=== PATIENT | female | born 1950 | race Caucasian/White ===

== ENCOUNTER → 2017-08-12 16:31 | Outpatient (CLI) | payer OTHER, MEDICARE, SELFPAY ==
[2017-08-12 17:25] LABS: Hemoglobin 10.8 g/dL (12.0-16.0)
[2017-08-12 17:30] LABS: HEMOLYSIS 27 (0-50); Iron 34 ug/dL (37-170)
[2017-08-12 17:33] LABS: Alanine Aminotransferase 31 IU/L (9-52); Albumin Globulin Ratio 1.5 (1.0-2.8); Alkaline Phosphatase 74 U/L (38-126); Aspartate Aminotransferase 18 IU/L (14-36); Bilirubin Total 0.5 mg/dL (0.2-1.3); Blood Urea Nitrogen 16 mg/dL (7-17); Calcium 9.7 mg/dL (8.4-10.2); Carbon Dioxide 23 mmol/L (22-32); Chloride 106 mmol/L (98-107); Estimated Glomerular Filt Rate > 60.0 mL/min (>60); Globulin 2.7 g/dL (1.7-4.1); Glucose 85 mg/dL (80-110); HEMOLYSIS < 15 (0-50); Potassium 4.7 mmol/L (3.4-5.1); Sodium 142 mmol/L (137-145); Total Protein 6.7 g/dL (6.3-8.2)
[2017-08-12 17:41] LABS: Percent Iron Saturation 8 % (15-50); Total Iron Binding Capacity 445 ug/dL (265-497); Transferrin 360 mg/dL (206-381)
[2017-08-12 18:01] LABS: Thyroid Stimulating Hormone 2.79 uIU/mL (0.47-4.68)
[2017-08-12 18:05] LABS: Ferritin 7.1 ng/mL (11.1-264)
== END ==
PROVIDERS: PCP Physician Assistant; Visit Provider Physician Assistant
DX: Z98.84 Bariatric surgery status (principal); Z86.2 Personal history of diseases of the blood and blood-forming organs and certain disorders involving the immune mechanism; Z86.39 Personal history of other endocrine, nutritional and metabolic disease
CPT/HCPCS: 36415; 80053; 82728; 83540; 83550; 84443; 85014; 85018

== ENCOUNTER → 2017-12-08 17:27 | Outpatient (CLI) | payer OTHER, SELFPAY ==
[2017-12-08 18:30] LABS: Hematocrit 42.3 % (36-46); Hemoglobin 13.8 g/dL (12.0-16.0)
[2017-12-08 19:08] LABS: HEMOLYSIS < 15 (0-50); Iron 31 ug/dL (37-170)
[2017-12-08 19:20] LABS: Percent Iron Saturation 9 % (15-50); Total Iron Binding Capacity 359 ug/dL (265-497); Transferrin 312 mg/dL (206-381)
[2017-12-08 19:45] LABS: Ferritin 9.8 ng/mL (11.1-264)
== END ==
PROVIDERS: PCP Physician Assistant; Visit Provider Physician Assistant
DX: D50.9 Iron deficiency anemia, unspecified (principal); Z98.84 Bariatric surgery status
CPT/HCPCS: 36415; 82728; 83540; 83550; 85014; 85018

== ENCOUNTER → 2018-01-19 09:53 | Outpatient (CLI) | payer OTHER, SELFPAY ==
--- NOTE | 2018-01-19 09:56 | DI.MG.S_ITS ---
BILATERAL DIGITAL SCREENING MAMMOGRAM 3D/2D WITH CAD: 01/19/2018 CLINICAL: Routine screening. Comparison is made to exams dated: 09/25/2015 mammogram, 04/29/2013 mammogram, and 03/28/2010 mammogram - [facility]. The tissue of both breasts is heterogeneously dense. This may lower the sensitivity of mammography. Current study was also evaluated with a Computer Aided Detection (CAD) system. No significant masses, calcifications, or other findings are seen in either breast. There has been no significant interval change. IMPRESSION: NEGATIVE There is no mammographic evidence of malignancy. A 1 year screening mammogram is recommended. This exam was interpreted at Station ID: [id number]. NOTE: For mammograms, a report in lay terms will be sent to the patient. Approximately 15% of breast malignancies will not be visualized mammographically. In the management of a palpable breast mass, a negative mammogram must not discourage biopsy of a clinically suspicious lesion. Electronically Signed By: Eloy caba/osei:01/19/2018 11:39:42 letter sent: Normal Exam ACR BI-RADS Category 1: Negative [id number]
== END ==
PROVIDERS: PCP Physician Assistant; Visit Provider Physician Assistant
DX: Z12.31 Encounter for screening mammogram for malignant neoplasm of breast (principal)
CPT/HCPCS: 77063; 77067

== ENCOUNTER → 2018-02-05 16:04 | Outpatient (CLI) | payer OTHER, SELFPAY ==
[2018-02-05 18:26] LABS: Urine N gonorrhoeae NOT DETECTED
[2018-02-05 18:30] LABS: Urine Chlamydia NOT DETECTED
== END ==
PROVIDERS: PCP Physician Assistant; Visit Provider Physician Assistant
DX: R30.0 Dysuria (principal); Z20.2 Contact with and (suspected) exposure to infections with a predominantly sexual mode of transmission
CPT/HCPCS: 87210; 87491; 87591

== ENCOUNTER → 2018-02-25 10:32 | Outpatient (CLI) | payer OTHER, SELFPAY | PROVIDERS: PCP Physician Assistant; Visit Provider Physician Assistant | DX: N39.0 Urinary tract infection, site not specified (principal) | CPT/HCPCS: 87086 ==

== ENCOUNTER → 2018-03-09 10:13 | Outpatient (CLI) | payer OTHER, SELFPAY | PROVIDERS: PCP Physician Assistant; Visit Provider Physician Assistant | DX: N39.0 Urinary tract infection, site not specified (principal) | CPT/HCPCS: 87086 ==

== ENCOUNTER → 2018-03-13 11:24 | Outpatient (CLI) | payer OTHER, SELFPAY ==
[2018-03-13 11:43] LABS: Hematocrit 41.4 % (36-46); Hemoglobin 13.6 g/dL (12.0-16.0)
[2018-03-13 11:57] LABS: HEMOLYSIS 21 (0-50); Iron 60 ug/dL (37-170)
[2018-03-13 12:08] LABS: Percent Iron Saturation 16 % (15-50); Total Iron Binding Capacity 379 ug/dL (265-497); Transferrin 332 mg/dL (206-381)
[2018-03-13 12:34] LABS: Ferritin 9.9 ng/mL (11.1-264)
[2018-03-13 12:49] LABS: Vitamin D 25 Hydroxy (D3) 20.6 ng/mL (30.0-100.0)
== END ==
PROVIDERS: PCP Physician Assistant; Visit Provider Physician Assistant
DX: D50.9 Iron deficiency anemia, unspecified (principal); M81.0 Age-related osteoporosis without current pathological fracture; Z98.84 Bariatric surgery status
CPT/HCPCS: 36415; 82306; 82728; 83540; 83550; 85014; 85018

== ENCOUNTER → 2018-04-29 15:33 | Outpatient (CLI) | payer OTHER, SELFPAY | PROVIDERS: PCP Physician Assistant; Visit Provider Physician Assistant | DX: M85.852 Other specified disorders of bone density and structure, left thigh (principal); Z78.0 Asymptomatic menopausal state; Z82.62 Family history of osteoporosis | CPT/HCPCS: 77080; 77081 ==

== ENCOUNTER 2018-05-21 08:59 | Day surgery (SDC) | payer OTHER, SELFPAY ==
[2018-05-21 09:33] VITALS: BMI 29.1
[2018-05-21 09:40] VITALS: BP 140/84; PULSE 74; RESP 15; TEMP 36.4; O2SAT 99
[2018-05-21] MEDS: SODIUM CHLORIDE 0.9% 1,000 ML 200 ML IV (09:50)
[2018-05-21] MEDS: MIDAZOLAM 5 MG/5 ML VIAL IV (11:17)
[2018-05-21] MEDS: fentaNYL 250 MCG/5 ML INJ IV (11:18)
--- NOTE | 2018-05-21 11:18 | PM.HP.1 ---
History of Present Illness Date Patient Seen: 05/21/18 Time Patient Seen: 11:14 Chief complaint: [id number] EGD Narrative: The patient is a woman here for a EGD. She had severe epigastric pain was being seen in February to have a scope done in March. For whatever reason she is here today. Her pain is intermittent now and not nearly as bad as it was. She has been on proton pump inhibitors. She was anemic P which was what prompted her initial visit. Patient History Medical History Generalized osteoarthritis of multiple sites (Chronic 07/04/10) Depression (Chronic) Sleep apnea (Chronic) Hypothyroidism (Chronic 07/04/10) Degeneration of intervertebral disc of cervical region (Chronic 07/04/10) History of bariatric surgery (Resolved 05/23/11) DDD (degenerative disc disease), cervical (Chronic Unknown) Hyperlipemia (Chronic Unknown) Hypertension (Chronic Unknown) Hypothyroidism (Chronic Unknown) Osteopenia (Chronic ~01/2016) Restless leg syndrome (Chronic Unknown) Surgical History Status post total hip replacement, right (Chronic) Hx of bariatric surgery (Resolved 2010) Hx of cholecystectomy (Resolved Unknown) Hx of lumbar discectomy (Resolved 11/2015) Hx of shoulder surgery (Resolved Unknown) Hx of total knee arthroplasty (Resolved 03/2015) S/P total hip arthroplasty (Resolved 01/2017) Family History Father Congestive heart failure Heart disease Mother Hypertension Heart disease Grandfather Stroke Social History household members: none occupational status: employed Smoking Status: Current some day smoker second hand exposure: No alcohol intake: current substance use type: does not use Family & Social History Family History Father Congestive heart failure Heart disease Mother Hypertension Heart disease Grandfather Stroke Social History: household members none Tobacco & Substance use: Smoking Status Current some day smoker alcohol intake current Meds Home Medications Medication Instructions Recorded Confirmed Type Disabled Parking Permit dev #1 09/17/15 05/03/18 Rx Glucose: Home Monitor ea #1 07/28/16 05/03/18 Rx Glucose: Test Strips str BID #100 07/28/16 05/03/18 Rx Lancet: Device ea BID #100 07/28/16 05/03/18 Rx Gabapentin 100 mg See Rx Instructions .ROUTE .COMPLEX 12/10/17 05/03/18 History Melatonin 5 mg See Rx Instructions .ROUTE .COMPLEX 12/10/17 05/03/18 History Voltaren Gel 1% See Rx Instructions .ROUTE .COMPLEX 12/10/17 05/21/18 History [Massage Therapy] #24 each 12/10/17 05/21/18 Rx celecoxib 200 mg capsule 200 mg PO BID #60 cap 12/10/17 05/21/18 Rx varicella-zoster glycoE [id number]-[id number] 50 mcg IM ONCE #1 each 12/10/17 05/21/18 Rx adj(PF) 50 mcg/0.5 mL IM susp, kit pramipexole [Mirapex] 1 - 2 tab PO PM #135 tab 12/14/17 05/21/18 Rx amitriptyline 25 mg tablet 25 - 50 mg PO HS #45 tab 01/11/18 05/21/18 Rx estradiol 0.01% (0.1 mg/gram) See Rx Instructions VAG BEDTIME 02/03/18 05/21/18 Rx vaginal cream #42.5 gram omeprazole 20 mg capsule,delayed 20 mg PO BID #60 cap 02/03/18 05/21/18 Rx release cholecalciferol (vitamin D3) 1,000 See Rx Instructions PO DAILY 03/09/18 05/21/18 History unit capsule urea 40 % topical cream 1 applictn TOP BID PRN #85 gram 03/10/18 05/21/18 Rx oxycodone-acetaminophen 5 mg-325 1 tab PO TID PRN #90 tab 04/22/18 05/21/18 Rx mg tablet tizanidine 4 mg tablet 4 mg PO BEDTIME PRN #30 tab 04/22/18 05/21/18 Rx naproxen 500 mg tablet 500 mg PO BID PRN #60 tab 05/19/18 05/21/18 Rx hydroxyzine pamoate [Vistaril] 25 mg PO Q4HP PRN 05/21/18 05/21/18 History polysaccharide iron complex 150 mg PO BID 05/21/18 05/21/18 History [Ferrex 150] Allergies Allergy/AdvReac Type Severity Reaction Status Date / Time adhesive [ADHESIVE] AdvReac Mild (PAPER/SILK Verified 05/21/18 09:28 TAPE OK) RASH hydrocodone [HYDROCODONE] AdvReac Mild NAUSEA Verified 05/21/18 09:28 oxycodone [OXYCODONE] AdvReac Mild ITCHING, Verified 05/21/18 09:28 TAKES BENADRYL WITH IT Review of Systems Review of Systems No cough or cold. Has a sore throat. No chest pain or heart problems. No black or bloody bowel movements. Exam Vital Signs (past 8 hours): - 05/21/18 09:40 Temperature 97.6 F Pulse Rate 74 Respiratory Rate 15 Blood Pressure 140/84 Pulse Oximetry 99 Oxygen Delivery Method Room Air Narrative Exam Narrative: Operative no apparent distress. Thin. Lungs are clear to auscultation no rales or rhonchi heart regular rate and rhythm no murmur gallop abdomen is soft nontender without masses. Alert and oriented x3. Assessment & Plan Assessment & Plan narrative: Patient with a history of anemia and epigastric pain that is improved. Will proceed EGD. I have discussed the procedure with her including risks of bleeding perforation. She appears to understand wishes to proceed
[2018-05-21] MEDS: TETRACAINE/BENZOCAINE/BUTAMBEN (CETACAINE) BOTTLE 1 SPRAY TOP (11:19)
[2018-05-21] MEDS: LIDOCAINE 4% SOLN 50 ML 20 ML TOP (11:20)
[2018-05-21] MEDS: ONDANSETRON 4 MG/2 ML INJ IV (11:26)
--- NOTE | 2018-05-21 11:38 | PM.PREOP ---
Pre-operative Note Interval Note History & Physical reviewed/Exam performed by Physician: Yes Changes to H&P: No ASA Class (for procedural sedation): II
--- NOTE | 2018-05-21 11:38 | PM.OP.ENDO ---
Operative Date/Time/Diagnoses Date of procedure: 05/21/18 Time of procedure: 11:38 Pre-op diagnosis: Epigastric pain. Post gastric bypass for obesity Post-op diagnosis: same (Large esophageal diverticulum at 25 cm from the incisors) Procedure & Clinicians Study performed: EGD Same procedure as scheduled: Yes Indications: Determine cause of epigastric pain Surgeon: Hans Bullard Procedure Notes SCOAP/Timeout: Performed Procedure in detail: The patient had topical anesthetic applied to oropharynx. She was placed in left lateral decubitus position and underwent IV sedation directed by the surgeon consisting of fentanyl and Versed. A bite block was inserted and the scope was advanced through it into the esophagus. The esophagus was unremarkable. GE junction was noted at 36 cm from the incisors. The gastric remnant distended well. I easily could see the blind end of the jejunum as well as the loop leading away from the gastric remnant. There was no evidence of any inflammation or ulceration at this time. I cannulated the loop and examined as far as I could. No lesions were seen in the small bowel. This was for a length of about 15 cm. The scope was brought back into the gastric remnant retroflexed. The residual proximal stomach was normal in appearance. There was no obvious hiatal hernia. the area was re-examined and then the scope was slowly removed. A large diverticulum was noted in the esophagus at about 25 cm from the incisors. There was no inflammation within it. the scope was then removed and the patient tolerated the procedure well. No lesions suggesting ulceration or neoplasm were seen. The scope was removed and the patient tolerated the procedure well. Scope withdrawal time: Not applicable Sedation minutes: 11 Findings: other findings (Esophageal diverticulum. Status post gastric bypass with Sea-en-Y reconstruction) Specimen(s): none sent Complications: none Recommendations: Other recommendation (Cause of pain unclear. Use of proton pump inhibitor may well have healed any ulcer that was present.) Follow up: as needed Disposition: PACU
[2018-05-21 11:41] VITALS: BP 132/81; PULSE 75; RESP 14; TEMP 36.6; O2SAT 95
[2018-05-21 11:46] VITALS: BP 136/74; PULSE 75; RESP 14; O2SAT 97
[2018-05-21 11:52] VITALS: BP 138/85; PULSE 74; RESP 16; TEMP 37.2; O2SAT 97
[2018-05-21 12:11] VITALS: BP 135/80; PULSE 67; RESP 15; TEMP 36.5; O2SAT 99
[2018-05-21 12:30] VITALS: BP 142/96; PULSE 74; RESP 18; TEMP 36.4; O2SAT 100
== END 2018-05-21 12:32 | disposition home or self-care (01) ==
PROVIDERS: PCP Physician Assistant; Visit Provider Specialist
PROC: 0DJ08ZZ Inspection of Upper Intestinal Tract, Via Natural or Artificial Opening Endoscopic (ICD-10-PCS; CPT 43235; principal; 2018-05-21 10:45)
DX: R10.13 Epigastric pain (principal); Z98.84 Bariatric surgery status; G47.33 Obstructive sleep apnea (adult) (pediatric); E03.9 Hypothyroidism, unspecified; E78.5 Hyperlipidemia, unspecified; I10 Essential (primary) hypertension; Q39.6 Congenital diverticulum of esophagus
CPT/HCPCS: 43235; 99152; J2250; J2405; J3010

== ENCOUNTER → 2018-07-17 10:49 | Outpatient (CLI) | payer OTHER, SELFPAY ==
[2018-07-17 13:41] LABS: Add Manual Diff / Slide Review NO; Basophils Absolute Auto 100 /uL (0-100); Basophils Percent Auto 0.8 % (0-2); Eosinophils Absolute Auto 800 /uL (0-450); Eosinophils Percent Auto 9.8 % (2-4); Hematocrit 40.1 % (36-46); Hemoglobin 13.2 g/dL (12.0-16.0); Lymphocytes Absolute Auto 2200 /uL (1100-4500); Lymphocytes Percent Auto 27.1 % (25-40); Mean Corpuscular HGB Conc 32.8 % (30-36); Mean Corpuscular Hemoglobin 28.4 PG (26-34); Mean Corpuscular Volume 86.5 fL (80-100); Monocytes Absolute Auto 700 /uL (0-900); Monocytes Percent Auto 8.3 % (3-14); Neutrophils Absolute Auto 4300 /uL (1500-7000); Platelet Count 336 X10^3/uL (150-400); Red Blood Cell Count 4.63 X10^6/uL (4.0-5.2); Red Cell Distribution Width 13.7 % (11.6-14.8)
[2018-07-17 13:46] LABS: Iron 54 ug/dL (37-170)
[2018-07-17 13:54] LABS: Alanine Aminotransferase 19 IU/L (9-52); Albumin 3.3 g/dL (3.5-5.0); Albumin Globulin Ratio 1.4 (1.0-2.8); Alkaline Phosphatase 51 U/L (38-126); Aspartate Aminotransferase 18 IU/L (14-36); BUN Creatinine Ratio 18.9 (6-22); Bilirubin Total 0.8 mg/dL (0.2-1.3); Blood Urea Nitrogen 17 mg/dL (7-17); Calcium 9.6 mg/dL (8.4-10.2); Carbon Dioxide 28 mmol/L (22-32); Chloride 107 mmol/L (98-107); Estimated Glomerular Filt Rate > 60.0 mL/min (>60); Globulin 2.3 g/dL (1.7-4.1); Glucose 79 mg/dL (80-110); HEMOLYSIS < 15 (0-50); Potassium 4.3 mmol/L (3.4-5.1); Sodium 140 mmol/L (137-145); Total Protein 5.6 g/dL (6.3-8.2)
[2018-07-17 14:03] LABS: HEMOLYSIS < 15 (0-50); Percent Iron Saturation 15 % (15-50); Total Iron Binding Capacity 351 ug/dL (265-497); Transferrin 282 mg/dL (206-381)
[2018-07-17 14:23] LABS: Thyroid Stimulating Hormone 3.01 uIU/mL (0.47-4.68)
[2018-07-17 14:29] LABS: Ferritin 8.2 ng/mL (11.1-264)
[2018-07-17 15:00] LABS: Folate 17.6 ng/mL (2.76-20.0); Vitamin B12 611 pg/mL (239-931)
[2018-07-17 15:50] LABS: Vitamin D 25 Hydroxy (D3) 28.2 ng/mL (30.0-100.0)
== END ==
PROVIDERS: PCP Physician Assistant; Visit Provider Physician Assistant
DX: D50.9 Iron deficiency anemia, unspecified (principal); E03.9 Hypothyroidism, unspecified; E51.9 Thiamine deficiency, unspecified; M81.0 Age-related osteoporosis without current pathological fracture; Z98.84 Bariatric surgery status; E53.8 Deficiency of other specified B group vitamins
CPT/HCPCS: 36415; 80053; 82306; 82607; 82728; 82746; 83540; 83550; 84443; 85025

== ENCOUNTER → 2018-09-17 18:49 | Outpatient (CLI) | payer OTHER, SELFPAY ==
--- NOTE | 2018-09-17 18:53 | DI.RAD.S_ITS ---
PROCEDURE: XR TIBIA FIBULA RT 2V INDICATIONS: proximal tibial hematoma TECHNIQUE: 2 views of the tibia and fibula were acquired. COMPARISON: None. FINDINGS: Bones: No fractures or dislocations. No suspicious bony lesions. Soft tissues: No suspicious soft tissue calcifications. There is pretibial soft tissue swelling proximally compatible with reported history of a hematoma. IMPRESSION: 1. No fracture or dislocation. Dictated by: Eloy Clarke M.D. on 09/17/2018 at 19:52 Approved by: Eloy Clarke M.D. on 09/17/2018 at 19:53
== END ==
PROVIDERS: PCP Physician Assistant; Visit Provider Physician Assistant
DX: S80.12XA Contusion of left lower leg, initial encounter (principal)
CPT/HCPCS: 73590

== ENCOUNTER → 2018-10-19 18:58 | Outpatient (CLI) | payer OTHER, SELFPAY ==
--- NOTE | 2018-10-19 19:02 | DI.MRI.S_ITS ---
PROCEDURE: MR LUMBAR SPINE WO CON INDICATIONS: LOW BACK PAIN. TECHNIQUE: Noncontrast sagittal T1 spin echo and T2 fast echo, coronal T2, sagittal STIR, axial T1 and T2 fast spin echo through the lumbar spine. COMPAR[facility], MR LUMBAR SPINE W&WO CON, 08/14/2016, 16:17. [facility] [place], CR, SPINE LUMB MIN 4VW, 07/10/2015, 14:52. [facility], CR, SPINE LUMB 2 OR 3VW, 09/07/2015, 14:55. [facility], CR, L-SPINE 2-3 VIEWS, 12/11/2015, 12:10. FINDINGS: Image quality: Excellent. Alignment and Curvature: 5 lumbar type vertebral bodies are present by plain film. There is severe leftward curvature of the upper lumbar spine and moderate rightward curvature of the lower lumbar spine. There is mild grade 1 retrolisthesis of L1 on L2. There is mild grade 1 anterolisthesis of L4 on L5. Bone Marrow: Marrow is of normal overall signal. No acute vertebral body compression fractures. Severe reactive signal within the endplates adjacent to the 102 intervertebral disc. Moderate reactive signal within the endplates adjacent to the to L3, L3-L4, and L4-L5 intervertebral discs. Spinal Cord: Conus medullaris terminates at the mid L2 level. Visualized cord demonstrates normal signal and size. Paraspinous Soft Tissues: No paravertebral masses. There is a 57 mm diameter left inferior pole adrenals tests. L1-L2: Severe disc height loss and desiccation. Mild diffuse disc bulge/osteophyte with superimposed right paracentral protrusion. Previously seen fluid signal intensity within the disc space has resolved. Mild canal stenosis. Moderate right foraminal stenosis. No left foraminal stenosis. No change. L2-L3: Moderate disc height loss and desiccation. Mild diffuse disc bulge S. osteophyte. Mild facet hypertrophy bilaterally. Mild canal stenosis. Mild bilateral foraminal stenosis. No change. L3-L4: Moderate disc height loss and desiccation. Mild diffuse disc bulge with superimposed broad-based left far lateral protrusion. Mild bilateral facet hypertrophy. Mild canal stenosis. Moderate left and mild right foraminal stenosis. No change. L4-L5: Moderate disc height loss and desiccation. Mild diffuse disc bulge/osteophyte. Mild bilateral facet hypertrophy. Right hemilaminotomy. No significant canal stenosis. Moderate bilateral foraminal stenosis. No change. L5-S1: Mild disc height loss and desiccation. Mild diffuse disc bulge with superimposed broad-based left far lateral protrusion. Bilateral facet hypertrophy. Mild canal stenosis. There is increased, moderate left foraminal stenosis. No change in mild right foraminal stenosis. IMPRESSION: 1. Multilevel degenerative disc and facet disease, as well as ligamentum flavum hypertrophy and epidural lipomatosis. 2. Thoracolumbar spinal curvature as described above. 3. Multilevel mild canal stenosis. 4. Post surgical sequelae of L4-L5 with no significant canal stenosis at that level. 4. Multilevel foraminal stenoses, worst at L1-L2, L3-L4, L4-L5, and L5-S1 as described above. Dictated by: Patrick Vang M.D. on 10/20/2018 at 9:43 Approved by: Patrick Vang M.D. on 10/20/2018 at 9:53
== END ==
PROVIDERS: PCP Physician Assistant; Visit Provider Physician Assistant Medical
DX: M46.00 Spinal enthesopathy, site unspecified (principal); D17.79 Benign lipomatous neoplasm of other sites
CPT/HCPCS: 72148

== ENCOUNTER → 2018-12-16 15:45 | Outpatient (CLI) | payer MEDICARE, SELFPAY ==
[2018-12-16 18:55] LABS: Bilirubin Urine UA NEGATIVE (NEGATIVE); Color Urine UA YELLOW; Glucose Urine UA NEGATIVE (Negative); Ketones Urine UA NEGATIVE (NEGATIVE); Leukocyte Esterase Urine UA TRACE (NEGATIVE); Nitrite Urine UA NEGATIVE (Negative); Occult Blood Urine UA TRACE-LYSED (Negative); Protein Urine UA NEGATIVE (Negative); Urobilinogen Urine UA 0.2 E.U./dL (0.2)
[2018-12-16 18:58] LABS: Appearance Urine UA CLOUDY; pH Urine UA 5.5 (4.5-8.0)
[2018-12-16 19:01] LABS: RBC Urine 0-1/HPF (0-5/HPF)
[2018-12-16 19:02] LABS: Amorphous Sediment Urine 4+; Bacteria Urine Few (2-10); Culture Indicated Urine Specimen Cultured; Mucus Urine 1+ (Negative); Squamous Epithelial Cell Urine 1-5 /HPF (0-5/HPF); WBC Urine 1-5/HPF (0-5/HPF)
== END ==
PROVIDERS: PCP Physician Assistant; Visit Provider Hospitalist
DX: M54.9 Dorsalgia, unspecified (principal)
CPT/HCPCS: 81001; 87086

== ENCOUNTER → 2018-12-27 12:47 | Outpatient (CLI) | payer OTHER, SELFPAY ==
--- NOTE | 2018-12-27 12:57 | DI.RAD.S_ITS ---
PROCEDURE: XR SHOULDER LT MIN 2V INDICATIONS: PAIN AFTER FALLING TECHNIQUE: 3 views of the shoulder were acquired. COMPARISON: [facility], CR, XR CHEST 1 VIEW, 03/02/2018, 19:54. FINDINGS: Bones: No fractures or dislocations. There is left shoulder arthroplasty. No suspicious bony lesions. Visualized ribs appear intact. Soft tissues: No suspicious soft tissue calcifications. IMPRESSION: Left shoulder arthroplasty. No fracture or dislocation. Dictated by: Holden Larry M.D. on 12/27/2018 at 14:24 Approved by: Holden Larry M.D. on 12/27/2018 at 14:27
== END ==
PROVIDERS: PCP Physician Assistant; Visit Provider Nurse Practitioner
DX: M25.512 Pain in left shoulder (principal); Z96.612 Presence of left artificial shoulder joint
CPT/HCPCS: 73030

== ENCOUNTER → 2019-01-12 13:04 | Outpatient (CLI) | payer OTHER, SELFPAY ==
--- NOTE | 2019-01-12 | DI.RAD.S_ITS ---
PROCEDURE: XR TIBIA FIBULA RT 2V INDICATIONS: PAIN TECHNIQUE: 2 views of the tibia and fibula were acquired. COMPARISON: [facility], CR, XR TIBIA FIBULA LT 2V, 09/17/2018, 19:02. FINDINGS: Bones: No fractures or dislocations. No suspicious bony lesions. There are partially imaged moderate degenerative changes of the left ankle as evidenced by osteophyte formation, joint space narrowing, and periarticular sclerosis. There are partially imaged moderate to severe degenerative changes of the left knee as evidenced by peritoneal sclerosis and osteophyte formation. Soft tissues: No suspicious soft tissue calcifications or masses. IMPRESSION: Partially imaged degenerative changes of the left knee and left ankle. No acute fracture or dislocation of the left tibia and fibula. Dictated by: Sher Caemjo M.D. on 01/12/2019 at 17:31 Approved by: Sher Camejo M.D. on 01/12/2019 at 17:35
--- NOTE | 2019-01-12 | DI.RAD.S_ITS ---
PROCEDURE: XR HIP W PEL IF DONE LT 2V INDICATIONS: PAIN TECHNIQUE: AP view of the pelvis with frog leg lateral view of the left hip. COMPARISON: [facility], CR, XR PELVIS WITH LATERAL HIP RIGHT, 07/16/2018, 16:22. [facility], CR, [id number] W PEL IF PERFORMED, 03/10/2016, 16:33. FINDINGS: Bones: No acute fracture or dislocation. There is a right total hip arthroplasty with no adjacent lucency or fracture identified. There are moderate degenerative changes of the left hip as evidenced by periarticular sclerosis, joint space narrowing, and osteophyte formation. There are moderate multilevel degenerative changes of the imaged lower lumbar spine. Soft tissues: No suspicious soft tissue calcifications or masses. IMPRESSION: 1. Moderate degenerative changes of the left hip joint. 2. Right total hip arthroplasty without evidence of acute hardware complication. Dictated by: Sher Camejo M.D. on 01/12/2019 at 15:59 Approved by: Sher Camejo M.D. on 01/12/2019 at 16:02
--- NOTE | 2019-01-12 | DI.RAD.S_ITS ---
PROCEDURE: XR KNEE LT 3V INDICATIONS: PAIN TECHNIQUE: 3 views of the knee were acquired. COMPARISON: [facility], , KNEE 1-2 VIEWS RIGHT, 04/23/2015, 14:35. FINDINGS: Bones: No acute fractures or dislocations. There are severe tricompartmental degenerative changes of the left knee. A 0.5 cm round circumscribed nonaggressive-appearing calcification projects over the mid fibular diaphysis. There are large dense bulky calcifications projecting within the suprapatellar bursa superior to the left patella, measuring up to 4.0 cm in greatest diameter. Soft tissues: No joint effusion. IMPRESSION: 1. Severe tricompartmental degenerative changes of the left knee. 2. Large bulky calcifications projecting superior to the left patella within the suprapatellar bursa may represent dystrophic calcifications secondary to prior trauma versus sequela of degenerative change. Dictated by: Sher Camejo M.D. on 01/12/2019 at 16:02 Approved by: Sher Camejo M.D. on 01/12/2019 at 16:10
--- NOTE | 2019-01-12 | DI.RAD.S_ITS ---
PROCEDURE: XR LUMBAR SPINE 2-3V INDICATIONS: PAIN TECHNIQUE: 3 views of the lumbar spine were acquired. COMPARISON: [facility], MR, MR LUMBAR SPINE WO CON, 10/19/2018, 19:14. [facility], CR, L-SPINE 2-3 VIEWS, 12/11/2015, 12:10. FINDINGS: Suboptimal evaluation of underlying anatomy secondary to superposition and attenuation imaging artifact. Bones: 5 [id number] vertebrae are present. There is moderate to severe multilevel degenerative changes of the lumbar spine. There is focal levocurvature of the superior lumbar spine centered at L1-L2. There is a right total hip arthroplasty. There are mild degenerative changes of the left hip joint as evidenced by periarticular sclerosis. There is severe irregular sclerosis of the inferior endplate of L1 and superior endplate of L2 with loss of intervertebral disc space height at the L1-L2 level. Soft tissues: Nonobstructive bowel gas pattern. Surgical clips projecting over the right upper quadrant abdomen compatible with prior cholecystectomy. Calcified pelvic phleboliths noted. IMPRESSION: 1. Moderate to severe multilevel degenerative changes of the lumbar spine. 2. Loss of L1-L2 intervertebral disc space height with adjacent severe irregular endplate sclerosis, which may be secondary to degenerative change or osteomyelitis. An MRI of the lumbar spine with contrast is recommended if there are clinical findings concerning for potential osteomyelitis. Dictated by: Sher Camejo M.D. on 01/12/2019 at 17:35 Approved by: Sher Camejo M.D. on 01/12/2019 at 17:42
== END ==
PROVIDERS: Family Provider Physician Assistant; PCP Physician Assistant; Visit Provider Nurse Practitioner Family
DX: S29.012A Strain of muscle and tendon of back wall of thorax, initial encounter (principal); M25.552 Pain in left hip; M25.512 Pain in left shoulder; M79.605 Pain in left leg; M25.562 Pain in left knee; M25.862 Other specified joint disorders, left knee; M46.1 Sacroiliitis, not elsewhere classified; M47.816 Spondylosis without myelopathy or radiculopathy, lumbar region; M25.60 Stiffness of unspecified joint, not elsewhere classified; W17.89XA Other fall from one level to another, initial encounter; Z96.641 Presence of right artificial hip joint
CPT/HCPCS: 72100; 73502; 73562; 73590

== ENCOUNTER → 2019-02-28 11:26 | Outpatient (CLI) | payer OTHER, SELFPAY ==
--- NOTE | 2019-02-28 11:30 | DI.RAD.S_ITS ---
PROCEDURE: XR LUMBAR SPINE MIN 4V INDICATIONS: Post laminectomy syndrome scoliosis TECHNIQUE: 5 views of the lumbar spine were acquired. COMPARISON: [facility], JESUS, XR LUMBAR SPINE 2-3V, 01/12/2019, 13:19. [facility], JESUS, L-SPINE 2-3 VIEWS, 12/11/2015, 12:10. FINDINGS: Bones: 5 nonrib-bearing vertebrae are present. There is abnormal scoliotic bony alignment, convex leftward at the thoracolumbar junction. No vertebral body compression fractures. No suspicious bony lesions. Degenerative disc disease is moderately severe along the entirety of the visualized lumbosacral spine, with facet osteoarthritis becoming progressively more prominent from the upper through the middle and lower thirds of the LS spine. A definite pattern of associated subluxation is not present, however. Soft tissues: Overlying bowel gas pattern is normal. No suspicious soft tissue calcifications. Oblique images: No pars defects. IMPRESSION: Overall there is moderately severe to severe degenerative disc disease and facet osteoarthritis with superimposed scoliosis crossing from the thoracolumbar junction into the lumbosacral spine. Significant spinal and foraminal stenosis likely is present. Depending on the clinical status followup by MR scanning may become necessary. Dictated by: Clement Wright M.D. on 02/28/2019 at 16:55 Approved by: Clement Wright M.D. on 02/28/2019 at 16:56
== END ==
PROVIDERS: Family Provider Physician Assistant; PCP Physician Assistant; Visit Provider Physical Medicine & Rehabilitation
DX: M54.5 Low back pain (principal); M47.816 Spondylosis without myelopathy or radiculopathy, lumbar region; M47.817 Spondylosis without myelopathy or radiculopathy, lumbosacral region; M41.85 Other forms of scoliosis, thoracolumbar region; M51.37 Other intervertebral disc degeneration, lumbosacral region; G89.29 Other chronic pain; Z98.890 Other specified postprocedural states; Z96.641 Presence of right artificial hip joint
CPT/HCPCS: 72110; 99214

== ENCOUNTER → 2019-03-24 16:23 | Outpatient (CLI) | payer OTHER, SELFPAY ==
[2019-03-24 17:40] LABS: Add Manual Diff / Slide Review NO; Basophils Absolute Auto 0 /uL (0-100); Basophils Percent Auto 0.7 % (0-2); Eosinophils Absolute Auto 300 /uL (0-450); Hematocrit 39.4 % (36-46); Hemoglobin 12.9 g/dL (12.0-16.0); Lymphocytes Absolute Auto 1400 /uL (1100-4500); Lymphocytes Percent Auto 20.1 % (25-40); Mean Corpuscular HGB Conc 32.7 % (30-36); Mean Corpuscular Hemoglobin 27.8 PG (26-34); Mean Corpuscular Volume 85.2 fL (80-100); Monocytes Absolute Auto 500 /uL (0-900); Monocytes Percent Auto 6.8 % (3-14); Neutrophils Absolute Auto 4700 /uL (1500-7000); Neutrophils Percent Auto 68.4 % (50-75); Platelet Count 285 X10^3/uL (150-400); Red Blood Cell Count 4.62 X10^6/uL (4.0-5.2); Red Cell Distribution Width 14.5 % (11.6-14.8); White Blood Cell Count 6.9 X10^3/uL (4.5-11.0)
[2019-03-24 17:48] LABS: Carbon Dioxide 27 mmol/L (22-32); Chloride 105 mmol/L (98-107); HEMOLYSIS 16 (0-50); Potassium 4.2 mmol/L (3.4-5.1); Sodium 139 mmol/L (137-145)
== END ==
PROVIDERS: Family Provider Physician Assistant; PCP Physician Assistant; Visit Provider Orthopaedic Surgery
DX: Z01.818 Encounter for other preprocedural examination (principal); Z01.812 Encounter for preprocedural laboratory examination
CPT/HCPCS: 36415; 80051; 85025; 93005

== ENCOUNTER 2019-04-05 15:21 | Outpatient (CLI) | payer OTHER, SELFPAY ==
[2019-04-05] VITALS (9 sets, daily range): BP systolic 134–162; BP diastolic 72–97; PULSE 66–85; RESP 16–18; TEMP 36.9; O2SAT 98–100
--- NOTE | 2019-04-05 15:22 | DI.RAD.S_ITS ---
PROCEDURE: PAIN L/S FACET INJ/BLK 1ST POLO COMPARISON: None. INDICATIONS: SPONDYLOSIS FINDINGS: Fluoroscopic spot filming was performed to verify placement of spinal needles at the L3, L4, L5 level(s), as labeled on the films. Appropriate location(s) of the needle tip(s) was confirmed by injection of iodinated contrast. Dictated by: Zak Back M.D. on 04/06/2019 at 10:20 Approved by: Zak Back M.D. on 04/06/2019 at 10:22
[2019-04-05] MEDS: MIDAZOLAM 5 MG/5 ML VIAL IV (16:27)
[2019-04-05] MEDS: IOPAMIDOL 15 ML VIAL 3 ML INJ (16:34)
[2019-04-05] MEDS: BUPIVACAINE 0.5% (PF) VIAL 2 ML INJ (16:34)
[2019-04-05] MEDS: LIDOCAINE 1% 20 ML 10 ML INJ (16:34)
--- NOTE | 2019-04-05 16:39 | PC.NURSE ---
ASSISTING PT OFF TABLE AND TRANSPORTING TO POST PROC AREA IN STABLE CONDITION. PASSING RN CARE OF PT OFF TO ORLIN Watts RN.
--- NOTE | 2019-04-05 16:45 | P.PCN_ITS ---
Procedures Date/Time Date of procedure: 04/05/19 Time of procedure: 16:45 General Procedure description: POST OP DIAGNOSIS 1. FACET ARTHROPATHY PROCEDURES 1. BILATERAL L3, L4 AND L5 DIAGNOSTIC MB BLOCKS PHYSICIAN: Sunday Strauss DO INDICATIONS Elizabeth is referred by MILAGROS Mehta for treatment of Bilateral Axial LBP. DESCRIPTION OF PROCEDURE Fluoroscopically guided, contrast-controlled bilateral L3, L4 and L5 medial branch blocks with 0.5cc of 0.5% Marcaine. Following review of allergy and review of potential side effects and complications, including, but not necessarily limited to, infection, allergic reaction, local tissue breakdown, nerve injury, paralysis, stroke and possible , the patient indicated that the patient understood and agreed to proceed. An informed consent document was signed by the patient, witnessed by a nurse, and placed in the patient's chart. After review of previous anaesthesic history and IV conscious sedation the patient was deemed safe to proceed with todays procedure with IV conscious sedation as ASA class II designation. Safety time-out was performed to confirm patient ID, procedure to be performed and site of procedure. IV sedation was accomplished with a combination of 3mg of Versed was administered by the RN after DO order, titrated to patient comfort during the course of the procedure while the patient remained responsive to all verbal commands In the prone position, following sterile prep and drape of the lumbar region, the right L3, L4 AND L5 anatomical location of the medial branch of the dorsal ramus was identified fluoroscopically. Subsequently an anesthetic skin wheal using 1% lidocaine solution was initiated at each of the anatomical spots. Subsequently then a 25-gauge 3.5-inch spinal needle was atraumatically introduced and advanced under fluoroscopic guidance at each of the corresponding sites at the right L3, L4 and L5 MB. After negative aspiration, 0.2cc of Isovue 200 was injected, confirming placement without vascular or intrathecal uptake. Subsequently then 0.5cc of 0.5% Marcaine solution was injected at each of the corresponding sites at the right L3, L4 and L5 medial branch locations. The identical procedure was replicated on the left. The patient tolerated the procedure well without signs or symptoms of complications. The patient tolerated the procedure well without signs or symptoms of complications prior to transfer to the recovery area continued monitoring without incident. Post-procedure, the patient was monitored initiating provocative activities to measure the amount of relief from block of the facetogenic pain. The patient reported a VAS of 7 prior to the procedure and a post-procedure VAS of 1. It has been a pleasure to assist in the diagnostic and therapeutic care of your patient. Total Fluoroscopy Time: 9 seconds Total Conscious Sedation Time: 24min POST OP INSTRUCTIONS The patient was provided with a Pain Log to complete over the next several hours and subsequent days prior to the patient's follow up with the ordering physician. If the patient has equipment mechanic specialist relief to the solution applied, then they may be a candidate for medial branch rhizotomy. The patient is aware, was provided, once again, with a Pain Log and will follow up with the referring physician for review and clinical correlation Sunday Strauss DO Complications: none
--- NOTE | 2019-04-05 16:47 | PC.NURSE ---
1650: Received patient post procedure via WC, awake, calm, and pleasant. VSS upon arrival. Enjoying a warm, blanket, coffee, and Samara Doone cookies.
== END 2019-04-05 17:01 | disposition home or self-care (01) ==
PROVIDERS: Family Provider Physician Assistant; PCP Physician Assistant; Referring Provider Physical Medicine & Rehabilitation; Visit Provider Physical Medicine & Rehabilitation
DX: M47.816 Spondylosis without myelopathy or radiculopathy, lumbar region (principal); M54.5 Low back pain
CPT/HCPCS: 64493; 64494; 99152; J2250; J3010

== ENCOUNTER 2019-04-20 06:07 | Inpatient (IN) | payer OTHER, SELFPAY ==
[2019-04-13 09:44] VITALS: BMI 26.9
[2019-04-20] VITALS (13 sets, daily range): BP systolic 100–147; BP diastolic 48–87; PULSE 48–92; RESP 11–17; TEMP 35.9–37.4; O2SAT 97–100; BMI 26.8
--- NOTE | 2019-04-20 06:00 | DI.RAD.S_ITS ---
PROCEDURE: XR HIP W PEL IF DONE LT 2V INDICATIONS: left total hip TECHNIQUE: A single frontal view of the hips were acquired. [facility] 13[id number]FORMED, 03/10/2016, 16:33. FINDINGS: Bones: No fractures or dislocations. No suspicious bony lesions. The visualized pelvic ring appears intact. Prior right total hip arthroplasty, new left total hip arthroplasty, both in normal position Soft tissues: No suspicious soft tissue calcifications or masses. IMPRESSION: Normal alignment after new left total hip arthroplasty. Dictated by: Clement Wright M.D. on 04/20/2019 at 10:19 Approved by: Clement Wright M.D. on 04/20/2019 at 10:20
[2019-04-20] MEDS: CELECOXIB 200 MG CAPSULE PO (07:15)
[2019-04-20] MEDS: PREGABALIN 75 MG CAPSULE PO (07:15)
[2019-04-20] MEDS: ACETAMINOPHEN 325 MG TABLET 975 MG PO (07:15)
[2019-04-20] MEDS: LACTATED RINGERS 1,000 ML 42 ML IV ×2 (07:15→08:36)
--- NOTE | 2019-04-20 07:37 | PM.PREOP ---
Pre-operative Note Interval Note History & Physical reviewed/Exam performed by Physician: Yes Changes to H&P: No
[2019-04-20] MEDS: CEFAZOLIN 2 GM/100 ML FROZ.PIGGY IV ×2 (07:45→15:47)
[2019-04-20] MEDS: TRANEXAMIC ACID 1,000 MG VIAL 2000 MG INJ ×2 (08:06→09:06)
--- NOTE | 2019-04-20 08:22 | SUR.OPER ---
left Lateral on padded OR bed. Gel axillary roll. Arms secured on padded armboard with pillow supporting top arm. Padded hip positioner braces x4 - anterior and posterior chest and pelvis. Additional gel pad used anterior pelvis. Gel pad under bottom leg from knee to foot and secured with tape over sheet.
[2019-04-20] MEDS: ROPIVACAINE 0.5% PF 5 MG/ML 20ML VIAL 60 ML INJ (08:29)
[2019-04-20] MEDS: KETOROLAC 30 MG/ML VIAL IV (08:29)
[2019-04-20] MEDS: MORPHINE 4 MG/ML INJ INJ (08:30)
--- NOTE | 2019-04-20 09:55 | PM.OP.1 ---
Operative Date/Time/Diagnoses Date of procedure: 04/20/19 Time of procedure: 09:56 Pre-op diagnosis: Left hip degenerative joint disease Post-op diagnosis: same Procedure & Clinicians Procedure: Left total hip arthroplasty (CPT code 42634 with technical support assistant) Same procedure as scheduled: Yes Indications: Patient is an 68-year-old female with severe left hip DJD. The patient has pain with activities and at rest, limited ambulation and activity tolerance, difficulties with ADLs, and failure of conservative treatment. We have discussed the nature of condition, treatment options, risks and benefits, and patient elects to proceed with total hip arthroplasty and gives informed consent. Surgeon: Valentin Puckett Nursing Home Administrator: Amado Oliveros Anesthesia Type: General and Spinal Operative Notes Closure Type: primary Specimen(s): none sent Prosthetic devices, grafts, tissues, transplants, or devices: Acetabulum: Hyde and Nephew R3 acetabular component size 48 mm Femoral component: Hyde and Nephew Anthology stem size 6 with high offset Femoral head: 32 mm + 0 Oxinium Estimated Blood Loss (mL): 100 Blood products transfused: none Procedure in detail: After satisfaction induction of anesthetic, and administration of IV antibiotics, the patient was positioned in the lateral decubitus position with all bony prominences well padded and pelvic position secured using a hip weaver apprentice positioning device. Left hip and lower extremity prepped and draped in the usual sterile fashion, 1st dose of intravenous tranexamic acid was administered, then a longitudinal incision was created centered over the greater trochanter and carried sharply through the skin and subcutaneous tissues down to the fascia morgan which was divided longitudinally and retracted with a Charnley retractor. External rotators visualize, cut, tagged, and retracted posteriorly, then the capsule was cut in a T-type fashion with the corners tagged and retracted. Hip was dislocated and femoral neck cut made according to preoperative templating. Acetabular retractors then placed, and the acetabular labrum and osteophytes were excised. The acetabulum was then sequentially reamed to 47 mm with an excellent circumferential ream and fit with the trial. The trial component was removed and a permanent size 48 mm Hyde and Nephew R3 acetabular component was selected, positioned, and impacted with satisfactory position and fixation achieved. Permanent liner was then inserted with the elevated lip directed posteriorly. Soft tissue then removed off the lateral femoral neck in the lateral neck was entered using a box osteotome. T-handled reamers placed down the canal followed by sequential broaching to 6 with the final broach left in place for trial reduction which demonstrated excellent leg length, range of motion, and stability characteristics with a 32 mm +0 trial ball and a high offset trial neck. The trial and broach were removed, and a permanent size 6 high offset Hyde and Nephew Anthology stem was selected and inserted with excellent position and fixation achieved. Another trial reduction yielded the above characteristics so the trial ball was exchanged for a permanent 32 mm +0 Oxinium ball. The hip was irrigated and reduced and excellent leg length range of motion and stability characteristics were achieved and maintained. Periarticular tissues were infiltrated with ropivacaine, morphine, and Toradol. The hip was copiously irrigated, and the capsule repaired with #2 Ethibond, and the piriformis was repaired back to the greater trochanter with the same. Fascia morgan closed with interrupted #1 Ethibond sutures, and the subcutaneous tissues were closed in 2 layers of 0 Vicryl and 2 0 Vicryl. Skin was closed with gato and sterile dressings applied. Second dose of tranexamic acid was administered intravenously, and the anesthetic was terminated. Complications: none Post-operative Condition: stable Disposition: PACU Plan for aftercare: Patient will be admitted to the acute care [facility], and anticipate discharge on postop day 1 or 2 with follow-up in office in 10-14 days. Outpatient physical therapy will be arranged and patient will continue to observe posterior hip precautions. Patient will continue use of postoperative Lovenox for 10 days postop.
--- NOTE | 2019-04-20 11:33 | CM.DANOTE ---
DCP Assessment: EMR Reviewed: Patient is a pleasant 68 year old female who has a left total hip arthroplasty performed by Dr. Puckett. PCP Dr. Mehta. Patient was lying in bed with life partner Curtis at bedside. Introduced self and role. Patient states lives with life partner Curtis and that he will be her civil division deputy sheriff upon returning home. Patient states already has a FWW for use after surgery and that Curtis will drive her to appointments. Patient states already has medications, post-surgical appointment, and OP PT appointments in place. Patient has not yet worked with PT, but order is in place. I: [facility] Advantage/Self Pay P: DC home with life partner Curtis as care companion. No other discharge needs noted at this time. Care management will continue to follow and be available should any needs arise. SN Liv Higgins RN Discharge Planning/Care Management CM Discharge Assessment Start: 04/20/19 11:31 Freq: Status: Active Protocol: Document 04/20/19 11:31 HS (Rec: 04/20/19 11:32 [id number]) Discharge Planning Assessment Assigned Accounting/Finance Tutor Liv Hyde RN/SN Ronaldo Advance Directives? No History Provided By Patient,Medical Record Has Patient been admitted in last 30 No days? Prior Living Arrangements Mobile home Household Members significant other Type of transporation used prior to Drives own vehicle admit Independent with ADL's Yes Is patient alert and oriented? Yes Caregiver for Another No DME Already Rented / Owned FWW / Walker Patient/Family Preference OP PT Therapy Barriers to Discharge No Discharge Plan Home Whiteboard Updated in Patient Room with Yes name and ext. # of Accounting/Finance Tutor Review Status In Process Next Review Type Continued Stay Review Pre-Anesthesia Assessment Start: 04/13/19 09:44 Freq: Status: Active Protocol: Document 04/13/19 09:44 CAB (Rec: 04/13/19 10:42 CAB [id number]) Pre-Anesthesia Assessment Patient Information Reviewed Via Phone Assessment Assessment Completed With Patient Diagnostic Results CBC,EKG,Electrolytes Comment Labs/EKG @ 03/24/19 Primary Care Provider Candelaria Mehta Medical Clearance Received Yes Seen Specialist in Last 12 Months Yes Specialist Seen Orthopedist,Other Comment PCP clearance scanned to record Primary Language [place] Islander Guide Dog Instructor Required No Height 166.37 cm Weight 74.389 kg Body Mass Index (BMI) 26.9 Hearing Ability Normal Visual Assist Glasses Dentition Type Teeth, Natural Present,Teeth, Broken Barriers to Learning None Other Aids No Hx Anesthesia Reactions No Hx Family Anesthesia Reaction No Hx Malignant Hyperthermia No Hx Blood Transfusions No Hx Blood Transfusion Reaction No Anesthesia Review Requested No alcohol intake current alcohol intake frequency a few times a month Smoking Status Never smoker Substance Use Type does not use Pain Present Pain Reported Musculoskeletal Symptoms Abnormal Gait,Back Pain, Difficulty Walking,Joint Pain, Muscle Cramps,Muscle Spasms, Neck Pain,Numbness History of Falling (Recent or History of Yes ) Patient is completely paralyzed or No completely immobile Prosthesis or Orthotic Device Cane,Front Wheel Walker Mental Status Oriented to own ability Is patient on oxygen? No Does patient have MATSON/SOB No Hx Sleep Apnea Yes: Resolved after gastric bypass 2010 Currently Taking a Beta Fernandez No Can You Climb a Flight of Stairs Without No: Pt feels r/t SOB deconditioning Hx Chest Pain No Hx SOB No Hx Syncope or Dizziness No Anti-Coagulant Therapy No Has a Bike Assembler No Cardiac Testing No Hx Pacemaker/ICD No Pacemaker Rep Required? No Cardiac Clearance Received Not Applicable Diet Type At Home Regular dysphagia No Comment Hi protein, low fat diet Urinary Catheter Present No Hx Urinary Self Catheterization No Diabetes No Patient No Lactating No Hx Drug Resistant Organism No Presence of External or Internal Medical Yes: rt total ankle Devices replacement; rt tka; rt xiao; Mario total shoulders; Have you traveled outside the [facility] in the last 30 days? Marital Status Lives With other Prior Living Arrangements Mobile home Number of Floors (Floors) One Floor Support System Friend(s),Significant Other Does the Patient Have Assistance After Yes: S.O. will stay w/pt at Surgery discharge to assist with care Patient Discharge Plan Description Return Home Comment Pt advised 2 day length of stay per surgeon Feels Safe in Current Environment Yes Been Physically Hurt or Threatened By a No Person in Current Environment Do you have thoughts of harming yourself None or others? Are you currently considering suicide? No Do you have a plan to hurt yourself or No Plan others? Do You Have Any Spiritual Beliefs That No May Affect Your HC Choices? Do You Have Any Cultural Practices That No May Affect Your HC Choices? Comment Spiritual Who Can We Speak to About Patient's Care Family, friends Identifying Code for Release of Patient Declines to issue Information Health Care Proxy/Next of Kin Curtis (S.O.) Health Care Proxy Emergency Contact Name Evi (friend) Emergency Contact Advance Directives? No Power of Airplane Refueler No PAC Instructions Do not shave/clip surgical site,Durable medical equipment ,Medications to take/avoid, Nasal antibiotic,No ETOH/ petroleum product on skin DOS, NPO,Post-op transportation,Pre -surgical wash
[2019-04-20] MEDS: hydrOXYzine pamoate 25 MG CAPSULE PO (13:25)
[2019-04-20] MEDS: LACTATED RINGERS 1,000 ML 125 ML IV (13:25)
--- NOTE | 2019-04-20 14:30 | PC.NURSE ---
Patient to floor at 1030. Denies pain...She now has feeling to her whole leg and is able to wiggle her toes. Dressing is bulky to her L.hip and cdi. Patients skin is clear on skin check, signed off with AMY Dutton. IVF infusing and patient visiting with her s.o. Given Vistaril x1 for itching and helpful to patient.
--- NOTE | 2019-04-20 15:05 | PT-IP ANOTE ---
PT order received and chart reviewed. Pt reports feeling too tired to get up with therapy at this time. Provided post-op packet with posterior hip precautions and posted precautions in her room. Educated pt in her precautions.
[2019-04-20] MEDS: OXYCODONE IR 5 MG TABLET 7.5 MG PO (15:59)
--- NOTE | 2019-04-20 16:25 | PC.NURSE ---
Addendum entered by Anthony Ling R.N. 04/20/19 16:38: Patient able to void post surgery. Original Note: Nurse Note Assumed care of patient. Dressing to left hip CDI, CMS intact to left LE. Patient reports some pain, PO PRN medication administered. Patient reports itching with oxycodone, Dr. Hyde called for verbal PO itching medication. Care is ongoing.
[2019-04-20] MEDS: diphenhydrAMINE 25 MG TABLET PO (16:30)
--- NOTE | 2019-04-20 16:40 | PT.IIE ---
Current Diagnoses Unilateral primary osteoarthritis, left hip (04/20/19) Surgery Performed Operation Date: 04/20/19 07:45 Actual Procedures p Total Hip Arthroplasty(Left) - Valentin Puckett MD Surgical History (Last Updated 04/13/19 @ 10:17 by Agnes Pfeiffer RN) History of ankle surgery (Acute) History of arthroplasty of left shoulder (Acute) History of arthroplasty of right shoulder (Acute) History of lumbar laminectomy (Acute) Hx of bariatric surgery (Resolved 2010) Hx of cholecystectomy (Resolved Unknown) Hx of lumbar discectomy (Resolved 11/2015) Hx of thumb surgery (Acute) Hx of total knee arthroplasty (Resolved 03/2015) S/P epidural steroid injection (Acute) S/P epidural steroid injection (Acute) S/P total hip arthroplasty (Resolved 01/2017) Status post total hip replacement, right (Chronic) Medical History (Last Updated 04/13/19 @ 10:18 by Agnes Pfeiffer RN) DDD (degenerative disc disease), cervical (Chronic Unknown) Degeneration of intervertebral disc of cervical region (Chronic 07/04/10) Depression (Chronic) Facet arthropathy, lumbar (Chronic) Generalized osteoarthritis of multiple sites (Chronic 07/04/10) Hip pain (Acute) History of bariatric surgery (Resolved 05/23/11) Hyperlipemia (Chronic Unknown) Hypertension (Chronic Unknown) Hypoglycemia (Acute) Hypothyroidism (Chronic 07/04/10) Left shoulder pain (Acute) Osteopenia (Chronic ~01/2016) Restless leg syndrome (Chronic Unknown) Scoliosis (and kyphoscoliosis), idiopathic (Chronic) Sleep apnea (Chronic) Physical Therapy Inpatient Evaluation/Re-Eval M1 PT/OT-IP Prior Functional Status Start: 04/20/19 14:37 Freq: NEEDED Status: Active Protocol: Document 04/20/19 16:40 DLM (Rec: 04/20/19 16:54 DLM [email or web address]) Medical Review Prior Functional Status Medical History Reviewed Yes Diet/Fluid Consistency Regular Communication WFL Mobility and Gait Independent, community distances Activities of Daily Living and IADL's Independent, pain raising her left arm up over her head, Has been attending out-pt PT for L&I claim for left shoulder injury, she drives Prior Functional Level (Other details) Her marine oil terminal superintendent boyfriend, Curtis plans to stay with her at discharge to help her Social History Household Members significant other Living Arrangements Mobile home Number of Floors (Floors) One Floor Home Environment Tub/Shower Home Equipment Front Wheel Walker,Straight Cane,Raised Toilet Seat w/ Armrests,Grab Bars Near Toilet ,Grab Bars In Shower M2 PT-IP Current Condition Start: 04/20/19 14:37 Freq: NEEDED Status: Active Protocol: Document 04/20/19 16:40 DLM (Rec: 04/20/19 16:54 DLM [email or web address]) Physical Therapy Current Condition Current Condition Evaluation Date 04/20/19 Treatment Diagnosis left ANASTASIYA, posterior, impaired gait and mobility Onset Date 04/20/19 Precautions Posterior Hip Precautions No Hip Flexion > 90 degrees,No Hip Internal Rotation,No Hip Adduction Weight Bearing Status Weight Bearing Status Weight Bear as Tolerated M3 PT-IP Subjective Start: 04/20/19 14:37 Freq: NEEDED Status: Active Protocol: Document 04/20/19 16:40 DLM (Rec: 04/20/19 16:54 DLM [email or web address]) Subjective Physical Therapy Visit Type Type Initial Evaluation Visit Start Time 16:16 Visit Stop Time 16:40 Total Visit Minutes 24 Number of SUBCONTRACTS MANAGER Visits 0 Physical Therapy Visit Comments Patient Comments She has been tired this afternoon Patient Goals She wants to be able to discharge home Therapy Pain Assessment Pain When Pain Assessed After Treatment Pain Present Pain Present Pain Reported Location , hip, lower back Intensity 4 Scale Used Numeric (1 - 10) Description Aching Pain Management Techniques Apply Cold,Re-positioning, Timing of Activity with Medications M4 PT-IP Mobility and Gait Start: 04/20/19 14:37 Freq: NEEDED Status: Active Protocol: Document 04/20/19 16:40 DLM (Rec: 04/20/19 16:54 DLM [email or web address]) PT-Bed Mobility Assessment Supine to Sit Supine to Sit Standby Assistance Sit to Supine Sit to Supine Standby Assistance Scooting Scooting to Edge of Bed Standby Assistance Scooting Up and Down in Bed Standby Assistance PT-Transfer Assessment Sit to and From Stand Sit to and from Stand Standby Assistance,Use of Upper Extremities Equipment Transfer Assistive Device Gait Belt,Front Wheeled Walker Transfers Transfer Destination Bedside Commode Transfer Technique Stand Step Pivot Transfer Ability Level of Assist Standby Assistance,Use of Upper Extremities Comments Mobility Comments up to bedside commode to urinate this visit Gait Assessment Gait Gait Assistance Required: Standby Assistance Distance (Feet) 2 Assistive Devices Assistive Device Gait Belt,Front Wheeled Walker Gait Deviations General Gait Pattern Antalgic Factors Limiting Gait Function Factors Limiting Gait Function Decreased Activity Tolerance, Decreased Strength,Pain,Poor Balance Comments Gait Comments pt able to take side-steps at edge of bed with FWW and SBA PT-Balance Assessment Sitting Balance and Reactions Static Sitting Balance Ability Normal Dynamic Sitting Balance Ability Good Standing Balance and Reactions Static Standing Balance Ability Good Dynamic Standing Balance Ability Fair Device Used FWW M5 PT-IP Objective Assessments Start: 04/20/19 14:37 Freq: NEEDED Status: Active Protocol: Document 04/20/19 16:40 DLM (Rec: 04/20/19 16:54 DLM [email or web address]) Orientation Orientation/Cognition Level of Alertness Alert Orientation Name,Age,Birthday,Month,Date, Year,Day of Week,Place, Situation Language Function Ability No Deficits Noted Safety Awareness Understands Safety Issues Memory Description No Deficits Noted Comments wears glasses Gross Range of Motion Upper Extremity ROM Assessment Within Functional Limits Lower Extremity ROM Assessment Left Impaired Impairments limited by posterior hip precautions left LE Strength Upper Extremity Strength Assessment Left Impaired Shoulder pain with over-head use Lower Extremity Strength Assessment Left Impaired Hip able to move LE in bed Knee tolerating movement seated Ankle DF 4/5 Comments Strength Comments pain and functional weakness left LE post-op ANASTASIYA Coordination Assessment Gross Coordination Gross Coordination WNL Sensation Assessment Sensation Gross Sensation WNL Muscle Tone Muscle Tone WNL Yes M6 PT-IP Treatment Start: 04/20/19 14:37 Freq: NEEDED Status: Active Protocol: Document 04/20/19 16:40 DLM (Rec: 04/20/19 16:54 DLM [email or web address]) Physical Therapy Treatment Exercises Exercises Ankle Pumps Education Education Provided Precautions,Weight Bearing Status,Post-Op Packet,Safety Other Treatments Other Treatment Performed posted precautions in her room , she needs verbal reminders for her hip precautions during mobility M7 PT-IP Assessment and Plan Start: 04/20/19 14:37 Freq: NEEDED Status: Active Protocol: Document 04/20/19 16:40 DLM (Rec: 04/20/19 16:54 DLM [email or web address]) PT Summary Assessment and Plan Potential Rehabilitation Potential Excellent Status of Condition at Evaluation Evolving Summary Impairments Pain,ROM,Strength,Balance,Bed Mobility,Transfers,Gait, Activity Tolerance Goals Bed Mobility Goal Independent Transfer Goal Independent,Front Wheeled Walker Gait Goal Independent,Front Wheel Walker Gait Distance 150 feet Other Goals Demonstrate her hip precautions during mobility Days to Meet Goals 3 Frequency of Treatment Frequency Of Treatment Twice a Day Recommendations To Nursing Amount of Assist Needed 1 Person Assist Discharge Recommendations PT Discharge Recommendations Home with Assistance, Outpatient PT Other Discharge Recommendations she has out-pt PT scheduled Transportation Needs at Discharge Private Vehicle
[2019-04-20] MEDS: ONDANSETRON 4 MG/2 ML INJ IV (16:53)
[2019-04-20] MEDS: AMITRIPTYLINE 25 MG TABLET PO (21:06)
[2019-04-20] MEDS: PANTOPRAZOLE 20 MG TABLET PO (21:07)
[2019-04-21 00:40] VITALS: BP 102/56; PULSE 72; RESP 18; TEMP 36.7; O2SAT 98
[2019-04-21] MEDS: CEFAZOLIN 2 GM/100 ML FROZ.PIGGY IV (00:48)
[2019-04-21 04:15] VITALS: BP 94/55; PULSE 77; RESP 18; TEMP 37.2; O2SAT 95
[2019-04-21] MEDS: PANTOPRAZOLE 20 MG TABLET PO (05:28)
[2019-04-21] MEDS: OXYCODONE IR 5 MG TABLET 7.5 MG PO ×2 (05:31→09:30)
[2019-04-21 06:57] LABS: Hematocrit 29.2 % (36-46); Hemoglobin 9.8 g/dL (12.0-16.0)
[2019-04-21 07:47] VITALS: O2SAT 97
[2019-04-21 08:00] VITALS: BP 105/61; PULSE 82; RESP 16; TEMP 37.4; O2SAT 98
[2019-04-21] MEDS: ENOXAPARIN 40 MG/0.4 ML SYRINGE SUBCUT (08:41)
--- NOTE | 2019-04-21 09:21 | PT.IPTN ---
Current Diagnoses Unilateral primary osteoarthritis, left hip (04/20/19) Surgery Performed Operation Date: 04/20/19 07:45 Actual Procedures p Total Hip Arthroplasty(Left) - Valentin Puckett MD Physical Therapy Treatment Note M2 PT-IP Current Condition Start: 04/20/19 14:37 Freq: NEEDED Status: Active Protocol: Document 04/20/19 16:40 DLM (Rec: 04/20/19 16:54 DLM [email or web address]) Physical Therapy Current Condition Current Condition Evaluation Date 04/20/19 Treatment Diagnosis left ANASTASIYA, posterior, impaired gait and mobility Onset Date 04/20/19 Precautions Posterior Hip Precautions No Hip Flexion > 90 degrees,No Hip Internal Rotation,No Hip Adduction Weight Bearing Status Weight Bearing Status Weight Bear as Tolerated M3 PT-IP Subjective Start: 04/20/19 14:37 Freq: NEEDED Status: Active Protocol: Document 04/21/19 08:54 SP (Rec: 04/21/19 10:48 SP [id number]) Subjective Physical Therapy Visit Type Type Treatment Note Visit Start Time 08:54 Visit Stop Time 09:21 Total Visit Minutes 27 Notes Friend in room when arrived that will be helping her at home observed tx but on phone did not perform caregiver assist during tx. Number of RELAY MECHANIC Visits 1 Physical Therapy Visit Comments Patient Comments Pt willing to work with PT. Patient Goals Pt hoping to be discharged home with assistance of friends as long as needed today. Therapy Pain Assessment Pain When Pain Assessed During Mobility Pain Present Pain Present Pain Reported Location , hip, lower back Intensity 8 Scale Used Numeric (1 - 10) Description Acute,Spasm Pain Behaviors Facial Grimacing,Guarding, Holding Area,Moaning Pain Management Techniques Apply Cold,Re-positioning, Timing of Activity with Medications M4 PT-IP Mobility and Gait Start: 04/20/19 14:37 Freq: NEEDED Status: Active Protocol: Document 04/21/19 08:54 SP (Rec: 04/21/19 10:48 SP [id number]) PT-Bed Mobility Assessment Supine to Sit Supine to Sit Standby Assistance Scooting Scooting to Edge of Bed Standby Assistance PT-Transfer Assessment Sit to and From Stand Sit to and from Stand Standby Assistance,Use of Upper Extremities Equipment Transfer Assistive Device Gait Belt,Front Wheeled Walker Transfers Transfer Destination Chair Transfer Technique Pt ambulated with FWW Transfer Ability Level of Assist Standby Assistance,Use of Upper Extremities Comments Mobility Comments Pt was laying in bed when arrived. Completed supine to sitting HOB flat to assimulate home, SBA with noted effort but no assist required and report of increased pain in L hip 10/02. Pt stated declined more meds earlier when asked due to no pain. Pt willing to work with PT and received meds after. sit to stand SBA using FW. Pt demonstrated initially decreased WB through LLE and heavy on BUE into fWW but was able to increase WB as distance progressed but continued heavy WB on BUE due to pain in L hip while walking in hallway approx 100ft total . Pt was able to ascend/ descend 3 stairs L HR and SPC in RUE CGA at gait belt and CG - Min to support stability of SPC with heavy WB through BUE with good patterning step to gait RLE ascend/LLE descend, no LOB or devations. Not concerned caregiver giving patient assistance during stairs or gait and patient felt comfortable with little assist I gave her but patient stated couldn't do it again for her friend to help her due to pain this am. Pt demonstrated good hand placement during sitting descent to chair. Seated in chair with call light and all needs in reach, friend in room when left. RELAY MECHANIC and patient discussed need of pain med post PT tx, told would be in approx 0930. Gait Assessment Gait Gait Assistance Required: Standby Assistance Distance (Feet) 100 Able to Maintain Weight Bearing Status Yes During Gait Assistive Devices Assistive Device Gait Belt,Front Wheeled Walker Orthotic/Prosthetic Devices or Brace: No Gait Deviations General Gait Pattern Antalgic,Decreased Stride Length,Decreased Feet Clearance,Flexed Trunk,Step-to Gait Factors Limiting Gait Function Factors Limiting Gait Function Decreased Activity Tolerance, Decreased Strength,Limited Range of Motion,Pain Comments Gait Comments Pt was able to ambulate further distance during gait using FWW but needed multiple stopped rests due to pain in L hip during mobility, SBA approx 100 ft total in hallway . Stair Climbing Assessment Evaluation Level of Assist On Stairs Contact Guard Assistance, Minimal Assistance Devices Stair Climbing Assistive Devices Straight Cane,Left Railing Technique/Endurance Stair Climbing Direction Ascend and Descend Stair Climbing Technique Step to Step Number of Steps Climbed 3 Stair Climbing Set # Repetitions (reps) 1 Comments Stair Climbing Comments see mobility comments. PT-Balance Assessment Sitting Balance and Reactions Static Sitting Balance Ability Normal Dynamic Sitting Balance Ability Good Standing Balance and Reactions Static Standing Balance Ability Good Dynamic Standing Balance Ability Fair Device Used FWW M5 PT-IP Objective Assessments Start: 04/20/19 14:37 Freq: NEEDED Status: Active Protocol: Document 04/20/19 16:40 DLM (Rec: 04/20/19 16:54 DLM [email or web address]) Orientation Orientation/Cognition Level of Alertness Alert Orientation Name,Age,Birthday,Month,Date, Year,Day of Week,Place, Situation Language Function Ability No Deficits Noted Safety Awareness Understands Safety Issues Memory Description No Deficits Noted Comments wears glasses Gross Range of Motion Upper Extremity ROM Assessment Within Functional Limits Lower Extremity ROM Assessment Left Impaired Impairments limited by posterior hip precautions left LE Strength Upper Extremity Strength Assessment Left Impaired Shoulder pain with over-head use Lower Extremity Strength Assessment Left Impaired Hip able to move LE in bed Knee tolerating movement seated Ankle DF 4/5 Comments Strength Comments pain and functional weakness left LE post-op ANASTASIYA Coordination Assessment Gross Coordination Gross Coordination WNL Sensation Assessment Sensation Gross Sensation WNL Muscle Tone Muscle Tone WNL Yes M6 PT-IP Treatment Start: 04/20/19 14:37 Freq: NEEDED Status: Active Protocol: Document 04/21/19 08:54 SP (Rec: 04/21/19 10:48 SP [id number]) Physical Therapy Treatment Other Treatments Other Treatment Performed Discussed importance of getting up and walking every hour and performance of post op exercises to increase strength until outpatient PT appts. Pt commented asking how long until can return to work, RELAY MECHANIC suggested asking outpatient PT and physician depends on progress making. M7 PT-IP Assessment and Plan Start: 04/20/19 14:37 Freq: NEEDED Status: Active Protocol: Document 04/21/19 08:54 SP (Rec: 04/21/19 10:48 SP [id number]) PT Summary Assessment and Plan Potential Rehabilitation Potential Excellent Status of Condition at Evaluation Evolving Summary Impairments Pain,ROM,Strength,Balance,Bed Mobility,Transfers,Gait, Activity Tolerance Assessment Summary See mobility comments. SBA bed mobility, transfers and gait using FWW, decreased activity tolerance/ strength durign gait secondary to pain 10/02, needed multiple stopped rests for recovery. CGA-Min A duirng stair mgt 3 steps LHR and SPC in RUE with support for stability of cane for safety. Good demonstration during tx and recall 3/3 post op precautions. CAregiver friend on phone and only observed tx today. RELAY MECHANIC and patient felt he would be ableto give her the support at home needed as long as needed. Pt is ok to go home with assistance of friend and outpatient PT when medicallly stable. Goals Bed Mobility Goal Independent Transfer Goal Independent,Front Wheeled Walker Gait Goal Independent,Front Wheel Walker Gait Distance 150 feet Other Goals Demonstrate her hip precautions during mobility Days to Meet Goals 3 Frequency of Treatment Frequency Of Treatment Twice a Day Recommendations To Nursing Amount of Assist Needed 1 Person Assist Discharge Recommendations PT Discharge Recommendations Home with Assistance, Outpatient PT Other Discharge Recommendations she has out-pt PT scheduled Transportation Needs at Discharge Private Vehicle
[2019-04-21 12:00] VITALS: BP 107/48; PULSE 77; RESP 16; TEMP 37.2; O2SAT 97
--- NOTE | 2019-04-21 12:12 | PC.NURSE ---
L.knee dressing is cdi and bulky. This will be changed to a new water proof bandage. Up with Physical Therapy and doing well. Significant other will be taking patient home.
--- NOTE | 2019-04-21 13:07 | PM.PNPO.1 ---
Subjective Subjective Date Patient Seen: 04/21/19 Time Patient Seen: 07:30 Interval history: POD1 s/p LTHA w Dr. Puckett. Patient is doing well, complains of mild pain in L hip. Voiding without difficulty. Mobilizing with PT. Denies fever, chills, chest pain, shortness of breath, nausea, vomiting, pain in calves. Exam Vital Signs (past 8 hours): - 04/21/19 07:47 04/21/19 08:00 04/21/19 12:00 Temperature 99.4 F 99.0 F Pulse Rate 82 77 Respiratory Rate 16 16 Blood Pressure 105/61 107/48 L Pulse Oximetry 97 98 97 Oxygen Delivery Method Room Air Oxygen Flow Rate 0 Narrative Exam Narrative: 68 year old F, laying comfortably in bed, in no apparent distress. A&Ox3. Dressing CDI. SCDs in place. Able to actively dorsiflex/plantar flex BL. Dorsalis pedis 2+ BL. Sensory function grossly intact to light touch in LE BL. Calves warm, soft, compressible, non tender to palpation BL. Objective Labs Result Diagrams: 04/21/19 06:37 Labs: Laboratory Results - last 24 hr 04/21/19 06:37 Hgb 9.8 L Hct 29.2 L Assessment & Plan Post-op Postoperative Procedures: Procedures Operation Date: 04/20/19 07:45 Actual Procedures Side Surgeon p Total Hip Arthroplasty Left Valentin Puckett MD Postoperative status: doing well Postoperative plan: discharge Postoperative plan narrative: Discharge home today pending PT clearance Lovenox x10 days for DVT prophylaxis, then ASA 81mg BID Has oxycodone prescription at home In hospital - continue current pain management, SCDs, mobilizing with PT Time Spent With Patient Time with patient: less than 15 minutes
== END 2019-04-21 13:26 | disposition home or self-care (01) | DRG 470 ==
PROVIDERS: Admitting Provider Orthopaedic Surgery; Family Provider Physician Assistant; PCP Physician Assistant; Referring Provider Orthopaedic Surgery; Visit Provider Orthopaedic Surgery
PROC: 0SRB0JZ Replacement of Left Hip Joint with Synthetic Substitute, Open Approach (ICD-10-PCS; CPT 27130; principal; 2019-04-20 07:45)
DX: M16.12 Unilateral primary osteoarthritis, left hip (principal); Z96.641 Presence of right artificial hip joint
CPT/HCPCS: 36415; 73502; 85014; 85018; 94760; 94762; 97116; 97162; 97530; C1776; J0690; J1650; J1885; J2250; J2270; J2274; J2405; J2704

== ENCOUNTER 2019-05-10 14:15 | Outpatient (RCR) | payer OTHER, SELFPAY ==
--- NOTE | 2019-03-04 17:00 | PT.OPPOC ---
Physical, Occupational & Speech Therapy At [facility] Current Diagnoses Muscle weakness (generalized) (03/04/19) Other symptoms and signs involving the musculoskeletal system (03/04/19) Unspecified injury of muscle(s) and tendon(s) of the rotator cuff of left shoulder, initial encounter (03/04/19) Unspecified injury of muscle(s) and tendon(s) of the rotator cuff of unspecified shoulder, initial encounter (03/04/19) Visit Care Team Role Provider Type Candelaria Mehta PA-C Primary Care Provider Advanced Complaint Evaluation Officer Specialty: Medical Address: [address] [place] [address], [address], [address] Email: [email or web address] BERNARDO Kramer Attending Provider Advanced Complaint Evaluation Officer Specialty: EM Address: [address] [place] [address], [id number] Email: Plan Of Care PT-OP-T Assessment and Plan Start: 03/02/19 19:36 Freq: Status: Active Protocol: Document 03/04/19 11:26 LRN (Rec: 03/04/19 12:14 LRN [id number]) Physical Therapy Assessment Rehab Potential Rehabilitation Potential Excellent Evaluation Complexity Number of Personal Factors/Comorbidities 3 or More Number of Body Systems Impaired 4 or More Clinical Presentation at Evaluation Evolving Impairments Impairments Activity Tolerance,Functional Activities,Functional Mobility ,Pain,Posture,ROM,Soft Tissue Mobility,Strength Goals Four Impairment Pt light duty at work. Prior Authorization Nurse Goal (LTG) Pt will be able to return to work at prior level of function. LTG Duration 06/02/19 Three Impairment Decreased L shoulder strength Short Term Goal (STG) Improve L shoulder strength to generally 3/5 with pt able to self toilet and reach light objects from grocery shelves with mild discomfort (pain no greater than 2/10). STG Duration 04/03/19 Prior Authorization Nurse Goal (LTG) Pt will be able to unload & put away 7-8 dishes and hang clothes in her closet with minimal discomfort (pain no greater than 1/10). LTG Duration 06/02/19 Two Impairment Decreased L shoulder AROM Short Term Goal (STG) Pt will be independent on L shoulder PROM & AROM stretch and strengthening ex's. STG Duration 03/18/19 Fdc Goal (LTG) Improve L shoulder AROM/PROM with pt able to reach up to high shelves and able to lift arms high enough to dress with pain no greater than 1/10. LTG Duration 04/03/19 One Impairment Lacks appropriate self care HEP. Fdc Goal (LTG) Pt will be independent in a self care HEP. LTG Duration 06/02/19 Assessment Summary Assessment Pt presents with L rotator cuff injury, probable strain. She is very tender to palpation of the Supraspinatus , Infraspinatus Teres Minor and to lesser extent Teres Major. She has weakness with IR and decreased shoulder ER mobility; therefore Subscapularis muscle tightness and weakness is present. The pt is limited in shoulder mobility but is able to actively move her arm in all motions although limited. The pt has an extensive history of joint replacements including both shoulders being replaced and back surgeries; therefore progress may be slower than normal. The pt has a great attitude towards physical therapy and is expected to do well with therapy but possibly needing extended rehabilitation time. Pt chose to forgo cryotherapy today. Physical Therapy Plan Frequency and Duration Frequency of Treatment 2x/Week Plan of Care Start Date 03/04/19 Plan of Care End Date 06/02/19 Therapeutic Interventions Therapeutic Interventions Aquatic Therapy,Home Exercise Program,Manual Therapy,Patient /Caregiver Education,Self-Care /Home Management,Soft Tissue Mobilization,Taping, Therapeutic Exercises Modalities Cold Pack/Ice Massage,Hot Packs Next Visit Focus/Plan Next Note Type Treatment Note Next Visit Plan General warm up exercise or STM to start, f/b L shoulder PROM/AAROM/AROM and possible progression to resisted RC and elbow strengthening. Postural education and postural training with exercises. Use of cryotherapy or Hot packs only due to pt's many joint replacements and surgical corrections of her back. Plan of Care Dates Plan of Care Start Date 03/04/19 Plan of Care End Date 06/02/19 Electronically Signed by: Genia Bunn, PT 03/07/19 [id number] Please Sign and Return: I have reviewed this Plan of Care and certify that the skilled therapy services above are required to meet the patient?s needs. Physician Signature Date Printed Name and Credentials Clinical Instructor Signature Printed Name and Credentials
--- NOTE | 2019-03-04 17:00 | PT.OIE ---
Current Diagnoses Muscle weakness (generalized) (03/04/19) Other symptoms and signs involving the musculoskeletal system (03/04/19) Unspecified injury of muscle(s) and tendon(s) of the rotator cuff of left shoulder, initial encounter (03/04/19) Unspecified injury of muscle(s) and tendon(s) of the rotator cuff of unspecified shoulder, initial encounter (03/04/19) Past Medical History (Last Updated 02/28/19 @ 11:12 by Sunday Strauss DO) DDD (degenerative disc disease), cervical (Chronic Unknown) Degeneration of intervertebral disc of cervical region (Chronic 07/04/10) Depression (Chronic) Facet arthropathy, lumbar (Acute) Generalized osteoarthritis of multiple sites (Chronic 07/04/10) History of bariatric surgery (Resolved 05/23/11) Hyperlipemia (Chronic Unknown) Hypertension (Chronic Unknown) Hypothyroidism (Chronic 07/04/10) Hypothyroidism (Chronic Unknown) Osteopenia (Chronic ~01/2016) Restless leg syndrome (Chronic Unknown) Scoliosis (and kyphoscoliosis), idiopathic (Acute) Sleep apnea (Chronic) Past Surgical History (Last Reviewed 02/28/19 @ 11:11 by Sunday Strauss DO) History of lumbar laminectomy (Acute) Hx of bariatric surgery (Resolved 2010) Hx of cholecystectomy (Resolved Unknown) Hx of lumbar discectomy (Resolved 11/2015) Hx of shoulder surgery (Resolved Unknown) Hx of total knee arthroplasty (Resolved 03/2015) S/P total hip arthroplasty (Resolved 01/2017) Status post total hip replacement, right (Chronic) Visit Care Team Role Provider Type Candelaria Mehta PA-C Primary Care Provider Advanced Black Belt Specialty: Medical Address: [address] [place] [address], [address], [address] Email: [email or web address] BERNARDO Kramer Attending Provider Advanced Black Belt Specialty: EM Address: [address] [place] [address], [id number] Email: Physical Therapy Initial Evaluation PT-OP-A Visit Information Start: 03/02/19 19:36 Freq: Status: Active Protocol: Document 03/04/19 11:26 LRN (Rec: 03/04/19 12:14 [facility] [id number]) Out-Patient Physical Therapy Visit Information Visit Information Visit Type Initial Evaluation Visit Start Time 11:26 Visit Stop Time 12:14 Total Visit Minutes 48 Visit Number 1 Number of [employer] HCM CONSULTANT Visits 0 Evaluation Information Evaluation Date 03/04/19 Precautions Precautions LATEX ALLERGY OSTEOPOROSIS L shoulder replacement 04/06/12 R shoulder replacement 2014 R ankle replacement Chronic Back pain R TKA, R ANASTASIYA 02/06/2017 PT-OP-B Current Condition Start: 03/02/19 19:36 Freq: Status: Active Protocol: Document 03/04/19 11:26 LRN (Rec: 03/04/19 12:14 [facility] [id number]) Current Condition History of Current Condition Onset Date 12/26/18 History of Current Condition Fell out of truck while at work. Held handle on R side, stepped down from truck the door jam yanked the L arm felt like it was torn from socket, she let go of holding strap and fell ~4ft to the ground landed on her L side. Prior Treatments and Tests Next day urgent care did X-ray of shoulder and found nothing broken. Recently had MRI done but results unknown. Records review shows pt was been seen for pain management 02/28/19, indicating moderate to severe multilevel Degenerative changes of the lumbar spine. MRI was recommended concerning potential for osteomyelitis. Developmental History Developmental History Both shoulders replaced. Treatment Goals Patient/Caregiver Goals Pt goal is to regain function and prior level of function. Prior Functional Status Baseline Function- ADL's Independent Baseline Function- Mobility Independent Baseline Function- Other No limitations. Could lift a 8 dishes into cupboards. Current Functional Impairments (Reported) Functional Limitations- ADL's R handed. Can't lift L arm up. Aches all the time. Doesn't use it because it hurts. Difficult with ADLS (dressing, toileting, getting groceries off top shelf, putting dishes away from top shelf, hanging clothes on closet is hard). Functional Limitations- Recreation/ Limited in sailboating. Hobbies Personal Factors Other Personal Factors That May Effect Lives alone. Osteoarthritis, Therapy/Recovery Multiple joint replacements ( Both shoulders have been replaced, L shoulder replacement 04/06/12; R shoulder replaced 10/23/2014. R ankle replacement, R TKA, R ANASTASIYA 02/06/2017). R thumb 2016 & L thumb 09/2015 surgery to remove 1 small bone of each hand. Osteoporsis, getting infusions, Bariatric surgery, Depression controlled w/ medications, chronic back pain , LATEX ALLERGY. On Oxycodone for 5 yrs. PT-OP-C Subjective Start: 03/02/19 19:36 Freq: Status: Active Protocol: Document 03/04/19 11:26 LRN (Rec: 03/04/19 12:14 LRN [id number]) Patient Questionnaires Quick Dash- Upper Extremity Quick Dash UE Score 61 Quick Dash UE Impairment 60 to 79% Impaired (Score 60- 79) OP-PT Pain Assessment Location L shoulder Pain Location Details Generally in L shoulder Intensity 7 Scale Used Numeric (1 - 10) Description Aching Frequency Constant PT-OP-E Functional Tests Start: 03/02/19 19:36 Freq: Status: Active Protocol: Document 03/04/19 11:26 LRN (Rec: 03/04/19 12:14 LRN [id number]) Functional Tests Apley's Scratch Test Action 1- Left Behind shoulder Action 1- Right Behind the back Action 2- Left T1 Action 2- Right T4 Action 3- Left T10 Action 3- Right T12 PT-OP-J Posture/Palpation/Skin Start: 03/02/19 19:36 Freq: Status: Active Protocol: Document 03/04/19 11:26 LRN (Rec: 03/04/19 19:10 LRN [id number]) Posture Evaluation Position Standing Head/C-Spine Posture Side Bent Left T-Spine Posture Flattened L-Spine Posture Decreased Lordosis Shoulder Posture (L) Rounded,(R) Rounded,(L) Forward,(R) Forward,(L) Elevated Scapula Posture (L) Winged Knee Posture (L) Genu Valgus,(R) Genu Valgus Comments Posture Comments Dowagers Hump Palpation Assessment Location L shoulder Palpation Location UT, Rotator Cuff muscles Palpation Findings Soft Tissue Tightness,Muscle Guarding,Tenderness PT-OP-K Range of Motion Start: 03/02/19 19:36 Freq: Status: Active Protocol: Document 03/04/19 11:26 LRN (Rec: 03/04/19 19:10 LRN [id number]) Cervical Spine Range of Motion Cervical Spine Active Degrees Testing Position Sitting Extension 45 Rotation Left 40 Rotation Right 55 Lateral Flexion Left 34 Lateral Flexion Right 24 ROM Limitations Soft Tissue Tightness Shoulder Goniometric Range of Motion Shoulder Right Active Testing Position Sitting Flexion 170 Abduction 180 External Rotation at 0 degrees Abduction 65 Left Active Testing Position Sitting Flexion 124 Abduction 92 External Rotation at 0 degrees Abduction 32 PT-OP-M Strength Start: 03/02/19 19:36 Freq: Status: Active Protocol: Document 03/04/19 11:26 LRN (Rec: 03/04/19 19:10 LRN [id number]) Shoulder Strength Shoulder Manual Muscle Testing Right Reason Not Measured WFL Comments Generally 5/5. Left Flexion 2+ Poor+ Extension 5 Normal Abduction (C5) 2 Poor External Rotation 3- Fair- Internal Rotation 3- Fair- Elbow/Forearm Strength Elbow and Forearm Manual Muscle Testing Right Flexion (C6) 5 Normal Extension (C7) 5 Normal Left Flexion (C6) 3+ Fair+ Extension (C7) 4 Good Wrist Strength Wrist Manual Muscle Testing Right Reason Not Measured WFL Left Reason Not Measured WFL PT-OP-Q Treatments Start: 03/02/19 19:36 Freq: Status: Active Protocol: Document 03/04/19 11:26 LRN (Rec: 03/04/19 19:10 LRN [id number]) Therapeutic Exercises Supine Exercises Shoulder ER Supine Exercise Name Shoulder ER PROM Side left Shoulder Flex Supine Exercise Name Shoulder Flex PROM Side left Reps/Minutes 3 Self-Care/Home Management Treatment Education Patient Education Home Exercise Program Activities Self-Care/Home Management Activities Issued and reviewed HEP: Shoulder circles, Pendulum, self range shoulder flex in supine, hands behind head stretch into ER, shoulder IR self assist stretch, horiz shoulder AD self stretch & Shoulder ER stretch with hand on table. PT-OP-T Assessment and Plan Start: 03/02/19 19:36 Freq: Status: Active Protocol: Document 03/04/19 11:26 LRN (Rec: 03/04/19 12:14 LRN [id number]) Physical Therapy Assessment Rehab Potential Rehabilitation Potential Excellent Evaluation Complexity Number of Personal Factors/Comorbidities 3 or More Number of Body Systems Impaired 4 or More Clinical Presentation at Evaluation Evolving Impairments Impairments Activity Tolerance,Functional Activities,Functional Mobility ,Pain,Posture,ROM,Soft Tissue Mobility,Strength Goals Four Impairment Pt light duty at work. Senior Care Goal (LTG) Pt will be able to return to work at prior level of function. LTG Duration 04/09/20 Three Impairment Decreased L shoulder strength Short Term Goal (STG) Improve L shoulder strength to generally 3/5 with pt able to self toilet and reach light objects from grocery shelves with mild discomfort (pain no greater than 2/10). STG Duration 04/03/19 Pediatric Geneticist Goal (LTG) Pt will be able to unload & put away 7-8 dishes and hang clothes in her closet with minimal discomfort (pain no greater than 1/10). LTG Duration 06/02/19 Two Impairment Decreased L shoulder AROM Short Term Goal (STG) Pt will be independent on L shoulder PROM & AROM stretch and strengthening ex's. STG Duration 03/18/19 Senior Care Goal (LTG) Improve L shoulder AROM/PROM with pt able to reach up to high shelves and able to lift arms high enough to dress with pain no greater than 1/10. LTG Duration 04/03/19 One Impairment Lacks appropriate self care HEP. Pediatric Geneticist Goal (LTG) Pt will be independent in a self care HEP. LTG Duration 06/02/19 Assessment Summary Assessment Pt presents with L rotator cuff injury, probable strain. She is very tender to palpation of the Supraspinatus , Infraspinatus Teres Minor and to lesser extent Teres Major. She has weakness with IR and decreased shoulder ER mobility; therefore Subscapularis muscle tightness and weakness is present. The pt is limited in shoulder mobility but is able to actively move her arm in all motions although limited. The pt has an extensive history of joint replacements including both shoulders being replaced and back surgeries; therefore progress may be slower than normal. The pt has a great attitude towards physical therapy and is expected to do well with therapy but possibly needing extended rehabilitation time. Pt chose to forgo cryotherapy today. Physical Therapy Plan Frequency and Duration Frequency of Treatment 2x/Week Plan of Care Start Date 03/04/19 Plan of Care End Date 06/02/19 Therapeutic Interventions Therapeutic Interventions Aquatic Therapy,Home Exercise Program,Manual Therapy,Patient /Caregiver Education,Self-Care /Home Management,Soft Tissue Mobilization,Taping, Therapeutic Exercises Modalities Cold Pack/Ice Massage,Hot Packs Next Visit Focus/Plan Next Note Type Treatment Note Next Visit Plan General warm up exercise or STM to start, f/b L shoulder PROM/AAROM/AROM and possible progression to resisted RC and elbow strengthening. Postural education and postural training with exercises. Use of cryotherapy or Hot packs only due to pt's many joint replacements and surgical corrections of her back.
--- NOTE | 2019-03-08 11:46 | PT-OP ANOTE ---
Cx'd, inclement weather
--- NOTE | 2019-03-10 16:33 | PT.OTN ---
Current Diagnoses Muscle weakness (generalized) (03/10/19) Other symptoms and signs involving the musculoskeletal system (03/10/19) Unspecified injury of muscle(s) and tendon(s) of the rotator cuff of left shoulder, initial encounter (03/10/19) Unspecified injury of muscle(s) and tendon(s) of the rotator cuff of unspecified shoulder, initial encounter (03/10/19) Physical Therapy Treatment Note PT-OP-A Visit Information Start: 03/02/19 19:36 Freq: Status: Active Protocol: Document 03/10/19 11:21 LRN (Rec: 03/10/19 13:33 LRN [id number]) Out-Patient Physical Therapy Visit Information Visit Information Visit Type Treatment Note Visit Start Time 11:21 Visit Stop Time 12:08 Total Visit Minutes 47 Visit Number 2 Number of INSOLE BUFFER Visits 0 Evaluation Information Evaluation Date 03/04/19 Precautions Precautions LATEX ALLERGY OSTEOPOROSIS L shoulder replacement 04/06/12 R shoulder replacement 2014 R ankle replacement Chronic Back pain R TKA, R ANASTASIYA 02/06/2017 PT-OP-B Current Condition Start: 03/02/19 19:36 Freq: Status: Active Protocol: Document 03/04/19 11:26 LRN (Rec: 03/04/19 12:14 LRN [id number]) Current Condition History of Current Condition Onset Date 12/26/18 History of Current Condition Fell out of truck while at work. Held handle on R side, stepped down from truck the door jam yanked the L arm felt like it was torn from socket, she let go of holding strap and fell ~4ft to the ground landed on her L side. Prior Treatments and Tests Next day urgent care did X-ray of shoulder and found nothing broken. Recently had MRI done but results unknown. Records review shows pt was been seen for pain management 02/28/19, indicating moderate to severe multilevel Degenerative changes of the lumbar spine. MRI was recommended concerning potential for osteomyelitis. Developmental History Developmental History Both shoulders replaced. Treatment Goals Patient/Caregiver Goals Pt goal is to regain function and prior level of function. Prior Functional Status Baseline Function- ADL's Independent Baseline Function- Mobility Independent Baseline Function- Other No limitations. Could lift a 8 dishes into cupboards. Current Functional Impairments (Reported) Functional Limitations- ADL's R handed. Can't lift L arm up. Aches all the time. Doesn't use it because it hurts. Difficult with ADLS (dressing, toileting, getting groceries off top shelf, putting dishes away from top shelf, hanging clothes on closet is hard). Functional Limitations- Recreation/ Limited in sailboating. Hobbies Personal Factors Other Personal Factors That May Effect Lives alone. Osteoarthritis, Therapy/Recovery Multiple joint replacements ( Both shoulders have been replaced, L shoulder replacement 04/06/12; R shoulder replaced 10/23/2014. R ankle replacement, R TKA, R ANASTASIYA 02/06/2017). R thumb 2016 & L thumb 09/2015 surgery to remove 1 small bone of each hand. Osteoporsis, getting infusions, Bariatric surgery, Depression controlled w/ medications, chronic back pain , LATEX ALLERGY. On Oxycodone for 5 yrs. PT-OP-C Subjective Start: 03/02/19 19:36 Freq: Status: Active Protocol: Document 03/10/19 11:21 LRN (Rec: 03/10/19 16:22 LRN [id number]) OP-PT Subjective Patient Comments Patient Comments Doing exercises so shoulder isn't as sensitive to touch. PT-OP-E Functional Tests Start: 03/02/19 19:36 Freq: Status: Active Protocol: Document 03/04/19 11:26 LRN (Rec: 03/04/19 12:14 LRN [id number]) Functional Tests Apley's Scratch Test Action 1- Left Behind shoulder Action 1- Right Behind the back Action 2- Left T1 Action 2- Right T4 Action 3- Left T10 Action 3- Right T12 PT-OP-J Posture/Palpation/Skin Start: 03/02/19 19:36 Freq: Status: Active Protocol: Document 03/04/19 11:26 LRN (Rec: 03/04/19 19:10 LRN [id number]) Posture Evaluation Position Standing Head/C-Spine Posture Side Bent Left T-Spine Posture Flattened L-Spine Posture Decreased Lordosis Shoulder Posture (L) Rounded,(R) Rounded,(L) Forward,(R) Forward,(L) Elevated Scapula Posture (L) Winged Knee Posture (L) Genu Valgus,(R) Genu Valgus Comments Posture Comments Dowagers Hump Palpation Assessment Location L shoulder Palpation Location UT, Rotator Cuff muscles Palpation Findings Soft Tissue Tightness,Muscle Guarding,Tenderness PT-OP-K Range of Motion Start: 03/02/19 19:36 Freq: Status: Active Protocol: Document 03/10/19 11:21 LRN (Rec: 03/10/19 16:23 LRN [id number]) Shoulder Goniometric Range of Motion Shoulder Left Active Testing Position Supine Flexion 147 Abduction 90 PT-OP-M Strength Start: 03/02/19 19:36 Freq: Status: Active Protocol: Document 03/04/19 11:26 LRN (Rec: 03/04/19 19:10 LRN [id number]) Shoulder Strength Shoulder Manual Muscle Testing Right Reason Not Measured WFL Comments Generally 5/5. Left Flexion 2+ Poor+ Extension 5 Normal Abduction (C5) 2 Poor External Rotation 3- Fair- Internal Rotation 3- Fair- Elbow/Forearm Strength Elbow and Forearm Manual Muscle Testing Right Flexion (C6) 5 Normal Extension (C7) 5 Normal Left Flexion (C6) 3+ Fair+ Extension (C7) 4 Good Wrist Strength Wrist Manual Muscle Testing Right Reason Not Measured WFL Left Reason Not Measured WFL PT-OP-Q Treatments Start: 03/02/19 19:36 Freq: Status: Active Protocol: Document 03/10/19 11:21 LRN (Rec: 03/10/19 13:33 LRN [id number]) Therapeutic Exercises Supine Exercises Shoulder IR Supine Exercise Name PROM & ARROM Equipment Used Lev 1 TB Reps/Minutes 6' Comments Mild axial traction given for IR stretch Shoulder ER Supine Exercise Name PROM & ARROM Side left Resistance Lev 1 TB Reps/Minutes 6' Shoulder Flex Supine Exercise Name Shoulder Flex PROM Side left Reps/Minutes 3 Manual Therapy Treatment Soft Tissue Mobilization Teres Major/Minor Body Location L Teres Major/Minor Mobilization Type Strumming,Sustained Pressure Intensity/Depth Moderate Body Position Sidelying Infraspinatus Body Location L Infraspinatus Mobilization Type Strumming,Sustained Pressure Intensity/Depth Moderate Body Position Sidelying Supraspinatus Body Location Supraspinatus Mobilization Type Strumming,Sustained Pressure Intensity/Depth Moderate Body Position Sidelying Manual Traction Cervical Details Gentle C/S traction with ~20- 30 deg's neck flexion . Body Position Supine Reps/Duration 5' PT-OP-T Assessment and Plan Start: 03/02/19 19:36 Freq: Status: Active Protocol: Document 03/10/19 11:21 LRN (Rec: 03/10/19 13:33 LRN [id number]) Physical Therapy Assessment Goals Four Impairment Pt light duty at work. Medical Biller Goal (LTG) Pt will be able to return to work at prior level of function. LTG Duration 06/02/19 Two Impairment Decreased L shoulder AROM Short Term Goal (STG) Pt will be independent on L shoulder PROM & AROM stretch and strengthening ex's. STG Duration 03/18/19 Medical Biller Goal (LTG) Improve L shoulder AROM/PROM with pt able to reach up to high shelves and able to lift arms high enough to dress with pain no greater than 1/10. LTG Duration 04/03/19 One Impairment Lacks appropriate self care HEP. Jail Goal (LTG) Pt will be independent in a self care HEP. LTG Duration 06/02/19 Assessment Summary Assessment Less tenderness @ L shoulder and scapular region to start. Primary tenderness @ Infraspinatus near possible nerve exit site, Supraspinatus and along medial scapular border, possible cervical involvement. Good tolerance to TBand ex. L shoulder ROM is very limited due to pain at [facility]J. Care must be taken not to be excessive with stretch due to hx of shoulder replacement bilaterally. Physical Therapy Plan Frequency and Duration Frequency of Treatment 2x/Week Plan of Care Start Date 03/04/19 Plan of Care End Date 06/02/19 Next Visit Focus/Plan Next Note Type Treatment Note Next Visit Plan General warm up exercise if pain is down, or STM to start, f/b L shoulder PROM/AROM and progression to resisted RC and elbow strengthening. HEP for ROM & RC strengthening. Postural education and postural training with exercises. If pt agrees, use of cryotherapy or Hot packs only due to pt's many joint replacements and surgical corrections of her back.
--- NOTE | 2019-03-15 16:07 | PT.OTN ---
Current Diagnoses Muscle weakness (generalized) (03/10/19) Other symptoms and signs involving the musculoskeletal system (03/10/19) Unspecified injury of muscle(s) and tendon(s) of the rotator cuff of left shoulder, initial encounter (03/10/19) Unspecified injury of muscle(s) and tendon(s) of the rotator cuff of unspecified shoulder, initial encounter (03/10/19) Physical Therapy Treatment Note PT-OP-A Visit Information Start: 03/02/19 19:36 Freq: Status: Active Protocol: Document 03/15/19 13:39 LRN (Rec: 03/15/19 14:21 LRN [id number]) Out-Patient Physical Therapy Visit Information Visit Information Visit Type Treatment Note Visit Start Time 13:39 Visit Stop Time 14:21 Total Visit Minutes 42 Visit Number 3 Number of MANAGER OF TRAINING AND DEVELOPMENT Visits 0 Evaluation Information Evaluation Date 03/04/19 Precautions Precautions LATEX ALLERGY OSTEOPOROSIS L shoulder replacement 04/06/12 R shoulder replacement 2014 R ankle replacement Chronic Back pain R TKA, R ANASTASIYA 02/06/2017 PT-OP-B Current Condition Start: 03/02/19 19:36 Freq: Status: Active Protocol: Document 03/04/19 11:26 LRN (Rec: 03/04/19 12:14 LRN [id number]) Current Condition History of Current Condition Onset Date 12/26/18 History of Current Condition Fell out of truck while at work. Held handle on R side, stepped down from truck the door jam yanked the L arm felt like it was torn from socket, she let go of holding strap and fell ~4ft to the ground landed on her L side. Prior Treatments and Tests Next day urgent care did X-ray of shoulder and found nothing broken. Recently had MRI done but results unknown. Records review shows pt was been seen for pain management 02/28/19, indicating moderate to severe multilevel Degenerative changes of the lumbar spine. MRI was recommended concerning potential for osteomyelitis. Developmental History Developmental History Both shoulders replaced. Treatment Goals Patient/Caregiver Goals Pt goal is to regain function and prior level of function. Prior Functional Status Baseline Function- ADL's Independent Baseline Function- Mobility Independent Baseline Function- Other No limitations. Could lift a 8 dishes into cupboards. Current Functional Impairments (Reported) Functional Limitations- ADL's R handed. Can't lift L arm up. Aches all the time. Doesn't use it because it hurts. Difficult with ADLS (dressing, toileting, getting groceries off top shelf, putting dishes away from top shelf, hanging clothes on closet is hard). Functional Limitations- Recreation/ Limited in sailboating. Hobbies Personal Factors Other Personal Factors That May Effect Lives alone. Osteoarthritis, Therapy/Recovery Multiple joint replacements ( Both shoulders have been replaced, L shoulder replacement 04/06/12; R shoulder replaced 10/23/2014. R ankle replacement, R TKA, R ANASTASIYA 02/06/2017). R thumb 2016 & L thumb 09/2015 surgery to remove 1 small bone of each hand. Osteoporsis, getting infusions, Bariatric surgery, Depression controlled w/ medications, chronic back pain , LATEX ALLERGY. On Oxycodone for 5 yrs. PT-OP-C Subjective Start: 03/02/19 19:36 Freq: Status: Active Protocol: Document 03/15/19 13:39 LRN (Rec: 03/15/19 14:21 LRN [id number]) OP-PT Subjective Patient Comments Patient Comments States she is planning on having a L ANASTASIYA before the summer. States no change with shoulder. Aches most of the time and hurts when she uses it. PT-OP-E Functional Tests Start: 03/02/19 19:36 Freq: Status: Active Protocol: Document 03/04/19 11:26 LRN (Rec: 03/04/19 12:14 LRN [id number]) Functional Tests Apley's Scratch Test Action 1- Left Behind shoulder Action 1- Right Behind the back Action 2- Left T1 Action 2- Right T4 Action 3- Left T10 Action 3- Right T12 PT-OP-J Posture/Palpation/Skin Start: 03/02/19 19:36 Freq: Status: Active Protocol: Document 03/04/19 11:26 LRN (Rec: 03/04/19 19:10 LRN [id number]) Posture Evaluation Position Standing Head/C-Spine Posture Side Bent Left T-Spine Posture Flattened L-Spine Posture Decreased Lordosis Shoulder Posture (L) Rounded,(R) Rounded,(L) Forward,(R) Forward,(L) Elevated Scapula Posture (L) Winged Knee Posture (L) Genu Valgus,(R) Genu Valgus Comments Posture Comments Dowagers Hump Palpation Assessment Location L shoulder Palpation Location UT, Rotator Cuff muscles Palpation Findings Soft Tissue Tightness,Muscle Guarding,Tenderness PT-OP-K Range of Motion Start: 03/02/19 19:36 Freq: Status: Active Protocol: Document 03/10/19 11:21 LRN (Rec: 03/10/19 16:23 LRN [id number]) Shoulder Goniometric Range of Motion Shoulder Left Active Testing Position Supine Flexion 147 Abduction 90 PT-OP-M Strength Start: 03/02/19 19:36 Freq: Status: Active Protocol: Document 03/04/19 11:26 LRN (Rec: 03/04/19 19:10 LRN [id number]) Shoulder Strength Shoulder Manual Muscle Testing Right Reason Not Measured WFL Comments Generally 5/5. Left Flexion 2+ Poor+ Extension 5 Normal Abduction (C5) 2 Poor External Rotation 3- Fair- Internal Rotation 3- Fair- Elbow/Forearm Strength Elbow and Forearm Manual Muscle Testing Right Flexion (C6) 5 Normal Extension (C7) 5 Normal Left Flexion (C6) 3+ Fair+ Extension (C7) 4 Good Wrist Strength Wrist Manual Muscle Testing Right Reason Not Measured WFL Left Reason Not Measured WFL PT-OP-Q Treatments Start: 03/02/19 19:36 Freq: Status: Active Protocol: Document 03/15/19 13:39 LRN (Rec: 03/15/19 14:21 LRN [id number]) Cardio Equipment Recumbent Stepper (Sci-Fit) Duration (Minutes) 5 Resistance lev 1 Seat Position 12,13 Therapeutic Exercises Supine Exercises Shoulder IR Supine Exercise Name PROM & ARROM Equipment Used Lev 1 TB Reps/Minutes 6' Comments Mild axial traction given for IR stretch Shoulder ER Supine Exercise Name PROM & ARROM Side left Resistance Lev 1 TB Reps/Minutes 6' Shoulder Flex Supine Exercise Name Shoulder Flex PROM Side left Reps/Minutes 3 Sitting Exercises Scapular retraction Sitting Exercise Name Scapular pinches Reps/Minutes 10x Comments Physical cuing needed on L side. Active shoulder ER/IR Sitting Exercise Name Active shoulder ER/IR Side bilateral Resistance None & Lev 1 Reps/Minutes 10 x Comments Held Lev 1 TB due to pain Manual Therapy Treatment Soft Tissue Mobilization Teres Major/Minor Body Location L Teres Major/Minor Mobilization Type Strumming,Sustained Pressure Intensity/Depth Moderate Body Position Sidelying Infraspinatus Body Location L Infraspinatus Mobilization Type Strumming,Sustained Pressure Intensity/Depth Moderate Body Position Sidelying Supraspinatus Body Location Supraspinatus Mobilization Type Strumming,Sustained Pressure Intensity/Depth Moderate Body Position Sidelying Manual Traction Cervical Details Gentle C/S traction with ~20- 30 deg's neck flexion . Body Position Supine Reps/Duration 1' Self-Care/Home Management Treatment Education Patient Education Home Exercise Program Activities Self-Care/Home Management Activities I/S pt in HEP: Passive L shoulder ER & flex long hold stretch, sitting: shoulder ER/ IR & scapular pinches. PT-OP-T Assessment and Plan Start: 03/02/19 19:36 Freq: Status: Active Protocol: Document 03/15/19 13:39 LRN (Rec: 03/15/19 14:21 LRN [id number]) Physical Therapy Assessment Goals Four Impairment Pt light duty at work. Sprinkler Driver Goal (LTG) Pt will be able to return to work at prior level of function. LTG Duration 06/02/19 Three Impairment Decreased L shoulder strength Short Term Goal (STG) Improve L shoulder strength to generally 3/5 with pt able to self toilet and reach light objects from grocery shelves with mild discomfort (pain no greater than 2/10). STG Duration 04/03/19 Jail Goal (LTG) Pt will be able to unload & put away 7-8 dishes and hang clothes in her closet with minimal discomfort (pain no greater than 1/10). LTG Duration 06/02/19 Two Impairment Decreased L shoulder AROM Short Term Goal (STG) Pt will be independent on L shoulder PROM & AROM stretch and strengthening ex's. STG Duration 03/18/19 Sprinkler Driver Goal (LTG) Improve L shoulder AROM/PROM with pt able to reach up to high shelves and able to lift arms high enough to dress with pain no greater than 1/10. LTG Duration 04/03/19 One Impairment Lacks appropriate self care HEP. Sprinkler Driver Goal (LTG) Pt will be independent in a self care HEP. LTG Duration 06/02/19 Assessment Summary Assessment Pt indicates dislike for use of cryotherapy modality. Pt limited in activity tolerance on Scifit and with L shoulder PROM. Pt has symptoms of impingement; therefore ex for scapular depression needed. Primary area of ms tenderness was L Supraspinatus. No tenderness at scapular border. Today no change in L shoulder pain with manual cervical traction. Physical Therapy Plan Frequency and Duration Frequency of Treatment 2x/Week Plan of Care Start Date 03/04/19 Plan of Care End Date 06/02/19 Next Visit Focus/Plan Next Note Type Treatment Note Next Visit Plan Try general warm up exercise with tyson vs Scifit, and add scapular depression ex, f/b L shoulder PROM/AROM and progression to resisted RC and elbow strengthening. HEP for ROM & RC strengthening. Postural education and postural training with exercises. If pt agrees, use of cryotherapy or Hot packs only due to pt's many joint replacements and surgical corrections of her back.
--- NOTE | 2019-03-17 15:42 | PT.OTN ---
Current Diagnoses Muscle weakness (generalized) (03/17/19) Other symptoms and signs involving the musculoskeletal system (03/17/19) Unspecified injury of muscle(s) and tendon(s) of the rotator cuff of left shoulder, initial encounter (03/17/19) Unspecified injury of muscle(s) and tendon(s) of the rotator cuff of unspecified shoulder, initial encounter (03/17/19) Physical Therapy Treatment Note PT-OP-A Visit Information Start: 03/02/19 19:36 Freq: Status: Active Protocol: Document 03/17/19 13:35 LRN (Rec: 03/17/19 15:41 LRN [id number]) Out-Patient Physical Therapy Visit Information Visit Information Visit Type Treatment Note Visit Note SOCIAL WORKER AIDE administerd 30' of this treatment session Visit Start Time 13:35 Visit Stop Time 14:35 Total Visit Minutes 60 Visit Number 4 Number of SOCIAL WORKER AIDE Visits 0 Evaluation Information Evaluation Date 03/04/19 Precautions Precautions LATEX ALLERGY OSTEOPOROSIS L shoulder replacement 04/06/12 R shoulder replacement 2014 R ankle replacement Chronic Back pain R TKA, R ANASTASIYA 02/06/2017 PT-OP-B Current Condition Start: 03/02/19 19:36 Freq: Status: Active Protocol: Document 03/04/19 11:26 LRN (Rec: 03/04/19 12:14 LRN [id number]) Current Condition History of Current Condition Onset Date 12/26/18 History of Current Condition Fell out of truck while at work. Held handle on R side, stepped down from truck the door jam yanked the L arm felt like it was torn from socket, she let go of holding strap and fell ~4ft to the ground landed on her L side. Prior Treatments and Tests Next day urgent care did X-ray of shoulder and found nothing broken. Recently had MRI done but results unknown. Records review shows pt was been seen for pain management 02/28/19, indicating moderate to severe multilevel Degenerative changes of the lumbar spine. MRI was recommended concerning potential for osteomyelitis. Developmental History Developmental History Both shoulders replaced. Treatment Goals Patient/Caregiver Goals Pt goal is to regain function and prior level of function. Prior Functional Status Baseline Function- ADL's Independent Baseline Function- Mobility Independent Baseline Function- Other No limitations. Could lift a 8 dishes into cupboards. Current Functional Impairments (Reported) Functional Limitations- ADL's R handed. Can't lift L arm up. Aches all the time. Doesn't use it because it hurts. Difficult with ADLS (dressing, toileting, getting groceries off top shelf, putting dishes away from top shelf, hanging clothes on closet is hard). Functional Limitations- Recreation/ Limited in sailboating. Hobbies Personal Factors Other Personal Factors That May Effect Lives alone. Osteoarthritis, Therapy/Recovery Multiple joint replacements ( Both shoulders have been replaced, L shoulder replacement 04/06/12; R shoulder replaced 10/23/2014. R ankle replacement, R TKA, R ANASTASIYA 02/06/2017). R thumb 2016 & L thumb 09/2015 surgery to remove 1 small bone of each hand. Osteoporsis, getting infusions, Bariatric surgery, Depression controlled w/ medications, chronic back pain , LATEX ALLERGY. On Oxycodone for 5 yrs. PT-OP-C Subjective Start: 03/02/19 19:36 Freq: Status: Active Protocol: Document 03/17/19 13:35 LRN (Rec: 03/17/19 15:41 LRN [id number]) OP-PT Subjective Patient Comments Patient Comments Hurting all day the last session, so doesn't know if the therapy made her shoulder hurt or not. Today her shoulder feels pretty good. Ache is rated 3/10 and no sharp pain. PT-OP-E Functional Tests Start: 03/02/19 19:36 Freq: Status: Active Protocol: Document 03/04/19 11:26 LRN (Rec: 03/04/19 12:14 LRN [id number]) Functional Tests Apley's Scratch Test Action 1- Left Behind shoulder Action 1- Right Behind the back Action 2- Left T1 Action 2- Right T4 Action 3- Left T10 Action 3- Right T12 PT-OP-J Posture/Palpation/Skin Start: 03/02/19 19:36 Freq: Status: Active Protocol: Document 03/04/19 11:26 LRN (Rec: 03/04/19 19:10 LRN [id number]) Posture Evaluation Position Standing Head/C-Spine Posture Side Bent Left T-Spine Posture Flattened L-Spine Posture Decreased Lordosis Shoulder Posture (L) Rounded,(R) Rounded,(L) Forward,(R) Forward,(L) Elevated Scapula Posture (L) Winged Knee Posture (L) Genu Valgus,(R) Genu Valgus Comments Posture Comments Dowagers Hump Palpation Assessment Location L shoulder Palpation Location UT, Rotator Cuff muscles Palpation Findings Soft Tissue Tightness,Muscle Guarding,Tenderness PT-OP-K Range of Motion Start: 03/02/19 19:36 Freq: Status: Active Protocol: Document 03/10/19 11:21 LRN (Rec: 03/10/19 16:23 LRN [id number]) Shoulder Goniometric Range of Motion Shoulder Left Active Testing Position Supine Flexion 147 Abduction 90 PT-OP-M Strength Start: 03/02/19 19:36 Freq: Status: Active Protocol: Document 03/04/19 11:26 LRN (Rec: 03/04/19 19:10 LRN [id number]) Shoulder Strength Shoulder Manual Muscle Testing Right Reason Not Measured WFL Comments Generally 5/5. Left Flexion 2+ Poor+ Extension 5 Normal Abduction (C5) 2 Poor External Rotation 3- Fair- Internal Rotation 3- Fair- Elbow/Forearm Strength Elbow and Forearm Manual Muscle Testing Right Flexion (C6) 5 Normal Extension (C7) 5 Normal Left Flexion (C6) 3+ Fair+ Extension (C7) 4 Good Wrist Strength Wrist Manual Muscle Testing Right Reason Not Measured WFL Left Reason Not Measured WFL PT-OP-Q Treatments Start: 03/02/19 19:36 Freq: Status: Active Protocol: Document 03/17/19 13:35 LRN (Rec: 03/17/19 15:41 LRN [id number]) Cardio Equipment Recumbent Stepper (Sci-Fit) Duration (Minutes) 8 Resistance lev 1 Seat Position 12 Other Focus on UE ex Therapeutic Exercises Supine Exercises Shoulder IR/ER Supine Exercise Name Active Goal Post ex Side bilateral Equipment Used Dowel Reps/Minutes 10x Comments SOCIAL WORKER AIDE performed. Cuied for maintaining AB 80-90 deg's Lat pull down Supine Exercise Name LAT Pull down Resistance Lev 1 TB Reps/Minutes 10x Comments SOCIAL WORKER AIDE performed Shoulder ER Supine Exercise Name PROM & ARROM Side left Resistance Lev 1 TB Reps/Minutes 6' Shoulder Flex Supine Exercise Name Shoulder Flex PROM Side left Reps/Minutes 1' Sidelying Exercises Shoulder ER Sidelying Exercise Name Shoulder ER strengthening Side left Equipment Used 0, 1# Reps/Minutes 8x each Comments SOCIAL WORKER AIDE performed Sitting Exercises Tyson Sitting Exercise Name Shoulder Flex & AB Side left Equipment Used Overhead Tyson Scapular retraction Sitting Exercise Name Scapular pinches Reps/Minutes 10x Comments SOCIAL WORKER AIDE performed Active shoulder ER/IR Sitting Exercise Name Active shoulder ER/IR Side bilateral Resistance None & Lev 1 Reps/Minutes 10 x Comments SOCIAL WORKER AIDE performed Standing Exercises Shoulder IR Standing Exercise Name Shoulder IR strengthening Equipment Used Lev 1 TB Reps/Minutes 10x Comments SOCIAL WORKER AIDE performed Manual Therapy Treatment Soft Tissue Mobilization Supraspinatus Body Location Supraspinatus Mobilization Type Sustained Pressure Intensity/Depth Moderate Body Position Supine Self-Care/Home Management Treatment Education Patient Education Home Exercise Program Activities Self-Care/Home Management Activities Issued by PT; Reviewed by and executed HEP by SOCIAL WORKER AIDE: Shoulder stretch with bar flex & ER (sit & supine), scapular squeeze & T-Band ER/IR. Pt has Lev 1 TBand. PT-OP-T Assessment and Plan Start: 03/02/19 19:36 Freq: Status: Active Protocol: Document 03/17/19 13:35 LRN (Rec: 03/17/19 15:41 LRN [id number]) Physical Therapy Assessment Goals Four Impairment Pt light duty at work. Skilled Nursing Goal (LTG) Pt will be able to return to work at prior level of function. LTG Duration 06/02/19 Three Impairment Decreased L shoulder strength Short Term Goal (STG) Improve L shoulder strength to generally 3/5 with pt able to self toilet and reach light objects from grocery shelves with mild discomfort (pain no greater than 2/10). STG Duration 04/03/19 Lamp Mechanic Goal (LTG) Pt will be able to unload & put away 7-8 dishes and hang clothes in her closet with minimal discomfort (pain no greater than 1/10). LTG Duration 06/02/19 Two Impairment Decreased L shoulder AROM Short Term Goal (STG) Pt will be independent on L shoulder PROM & AROM stretch and strengthening ex's. STG Duration 03/18/19 Skilled Nursing Goal (LTG) Improve L shoulder AROM/PROM with pt able to reach up to high shelves and able to lift arms high enough to dress with pain no greater than 1/10. LTG Duration 04/03/19 One Impairment Lacks appropriate self care HEP. Skilled Nursing Goal (LTG) Pt will be independent in a self care HEP. LTG Duration 06/02/19 (03/17/19: Progressing) Assessment Summary Assessment Soreness from ex's but not pain. Overall pt appears to show improved shoulder flex ( on tyson). Challenged maintaining AB with shoulder ER/IR and scapular stabilization. Physical Therapy Plan Frequency and Duration Frequency of Treatment 2x/Week Plan of Care Start Date 03/04/19 Plan of Care End Date 06/02/19 Next Visit Focus/Plan Next Note Type Treatment Note Next Visit Plan Cont warm up exercise and with tyson, progress scapular depression strengthening, improve L shoulder PROM/AROM and progression resisted RC as tolerated and add elbow strengthening. HEP for ROM & RC strengthening. Postural education and postural training with exercises. If pt agrees, use of cryotherapy or Hot packs only due to pt's many joint replacements and surgical corrections of her back.
--- NOTE | 2019-03-29 12:27 | PT.OTN ---
Current Diagnoses Muscle weakness (generalized) (03/29/19) Other symptoms and signs involving the musculoskeletal system (03/29/19) Unspecified injury of muscle(s) and tendon(s) of the rotator cuff of left shoulder, initial encounter (03/29/19) Unspecified injury of muscle(s) and tendon(s) of the rotator cuff of unspecified shoulder, initial encounter (03/29/19) Physical Therapy Treatment Note PT-OP-A Visit Information Start: 03/02/19 19:36 Freq: Status: Active Protocol: Document 03/29/19 11:19 LRN (Rec: 03/29/19 12:26 LRN [id number]) Out-Patient Physical Therapy Visit Information Visit Information Visit Type Treatment Note Visit Start Time 11:19 Visit Stop Time 12:10 Total Visit Minutes 51 Visit Number 5 Number of [facility] Visits 0 Evaluation Information Evaluation Date 03/04/19 Precautions Precautions LATEX ALLERGY OSTEOPOROSIS L shoulder replacement 04/06/12 R shoulder replacement 2014 R ankle replacement Chronic Back pain R TKA, R ANASTASIYA 02/06/2017 PT-OP-B Current Condition Start: 03/02/19 19:36 Freq: Status: Active Protocol: Document 03/04/19 11:26 LRN (Rec: 03/04/19 12:14 LRN [id number]) Current Condition History of Current Condition Onset Date 12/26/18 History of Current Condition Fell out of truck while at work. Held handle on R side, stepped down from truck the door jam yanked the L arm felt like it was torn from socket, she let go of holding strap and fell ~4ft to the ground landed on her L side. Prior Treatments and Tests Next day urgent care did X-ray of shoulder and found nothing broken. Recently had MRI done but results unknown. Records review shows pt was been seen for pain management 02/28/19, indicating moderate to severe multilevel Degenerative changes of the lumbar spine. MRI was recommended concerning potential for osteomyelitis. Developmental History Developmental History Both shoulders replaced. Treatment Goals Patient/Caregiver Goals Pt goal is to regain function and prior level of function. Prior Functional Status Baseline Function- ADL's Independent Baseline Function- Mobility Independent Baseline Function- Other No limitations. Could lift a 8 dishes into cupboards. Current Functional Impairments (Reported) Functional Limitations- ADL's R handed. Can't lift L arm up. Aches all the time. Doesn't use it because it hurts. Difficult with ADLS (dressing, toileting, getting groceries off top shelf, putting dishes away from top shelf, hanging clothes on closet is hard). Functional Limitations- Recreation/ Limited in sailboating. Hobbies Personal Factors Other Personal Factors That May Effect Lives alone. Osteoarthritis, Therapy/Recovery Multiple joint replacements ( Both shoulders have been replaced, L shoulder replacement 04/06/12; R shoulder replaced 10/23/2014. R ankle replacement, R TKA, R ANASTASIYA 02/06/2017). R thumb 2016 & L thumb 09/2015 surgery to remove 1 small bone of each hand. Osteoporsis, getting infusions, Bariatric surgery, Depression controlled w/ medications, chronic back pain , LATEX ALLERGY. On Oxycodone for 5 yrs. PT-OP-C Subjective Start: 03/02/19 19:36 Freq: Status: Active Protocol: Document 03/29/19 11:19 LRN (Rec: 03/29/19 12:26 LRN [id number]) OP-PT Subjective Patient Comments Patient Comments States she is having her L ANASTASIYA at the end of the month. PT-OP-E Functional Tests Start: 03/02/19 19:36 Freq: Status: Active Protocol: Document 03/04/19 11:26 LRN (Rec: 03/04/19 12:14 LRN [id number]) Functional Tests Apley's Scratch Test Action 1- Left Behind shoulder Action 1- Right Behind the back Action 2- Left T1 Action 2- Right T4 Action 3- Left T10 Action 3- Right T12 PT-OP-J Posture/Palpation/Skin Start: 03/02/19 19:36 Freq: Status: Active Protocol: Document 03/04/19 11:26 LRN (Rec: 03/04/19 19:10 LRN [id number]) Posture Evaluation Position Standing Head/C-Spine Posture Side Bent Left T-Spine Posture Flattened L-Spine Posture Decreased Lordosis Shoulder Posture (L) Rounded,(R) Rounded,(L) Forward,(R) Forward,(L) Elevated Scapula Posture (L) Winged Knee Posture (L) Genu Valgus,(R) Genu Valgus Comments Posture Comments Dowagers Hump Palpation Assessment Location L shoulder Palpation Location UT, Rotator Cuff muscles Palpation Findings Soft Tissue Tightness,Muscle Guarding,Tenderness PT-OP-K Range of Motion Start: 03/02/19 19:36 Freq: Status: Active Protocol: Document 03/29/19 11:19 LRN (Rec: 03/29/19 12:26 LRN [id number]) Shoulder Goniometric Range of Motion Shoulder Left Active Shoulder ROM WFL No Testing Position Supine Flexion 142 Abduction 92 External Rotation at 90 degrees 72 Abduction Internal Rotation 70 PT-OP-M Strength Start: 03/02/19 19:36 Freq: Status: Active Protocol: Document 03/04/19 11:26 LRN (Rec: 03/04/19 19:10 LRN [id number]) Shoulder Strength Shoulder Manual Muscle Testing Right Reason Not Measured WFL Comments Generally 5/5. Left Flexion 2+ Poor+ Extension 5 Normal Abduction (C5) 2 Poor External Rotation 3- Fair- Internal Rotation 3- Fair- Elbow/Forearm Strength Elbow and Forearm Manual Muscle Testing Right Flexion (C6) 5 Normal Extension (C7) 5 Normal Left Flexion (C6) 3+ Fair+ Extension (C7) 4 Good Wrist Strength Wrist Manual Muscle Testing Right Reason Not Measured WFL Left Reason Not Measured WFL PT-OP-Q Treatments Start: 03/02/19 19:36 Freq: Status: Active Protocol: Document 03/29/19 11:19 LRN (Rec: 03/29/19 12:26 LRN [id number]) Therapeutic Exercises Supine Exercises Shoulder IR/ER Supine Exercise Name Active Goal Post ex Side bilateral Equipment Used Dowel Reps/Minutes 10x Comments Cued for maintaining AB 80-90 deg's Lat pull down Supine Exercise Name LAT Pull down Resistance Lev 1 TB Reps/Minutes 10x Comments [facility] performed Shoulder IR Supine Exercise Name PROM & ARROM Equipment Used Lev 1 TB Reps/Minutes 6' Comments ROM measurments taken Shoulder ER Supine Exercise Name PROM & ARROM Side left Resistance Lev 1 TB Reps/Minutes 6' Shoulder Flex Supine Exercise Name Shoulder Flex PROM Side left Reps/Minutes 1' Sidelying Exercises Shoulder ER Sidelying Exercise Name Shoulder ER strengthening Side left Equipment Used 2# Reps/Minutes 8x each Sitting Exercises Tyson Sitting Exercise Name Shoulder Flex & AB Side left Equipment Used Overhead Tyson Comments 10 holds Active shoulder ER/IR Sitting Exercise Name Active shoulder ER/IR Side bilateral Resistance Lev 1 Reps/Minutes 10 x 2 each Standing Exercises Scapular Depression Standing Exercise Name Lat Pull Down Side bilateral Equipment Used Lev 2 TBand Reps/Minutes 15 x Scapular Retraction Standing Exercise Name Row Side bilateral Resistance Lev 1 T-Band Reps/Minutes 15 x 1 Self-Care/Home Management Treatment Education Patient Education Home Exercise Program Activities Self-Care/Home Management Activities Issued & Reviewed HEP: Scapular retraction & Scapular depression. PT-OP-T Assessment and Plan Start: 03/02/19 19:36 Freq: Status: Active Protocol: Document 03/29/19 11:19 LRN (Rec: 03/29/19 12:26 LRN [id number]) Physical Therapy Assessment Goals Four Impairment Pt light duty at work. Design Maker Goal (LTG) Pt will be able to return to work at prior level of function. LTG Duration 06/02/19 Three Impairment Decreased L shoulder strength Short Term Goal (STG) Improve L shoulder strength to generally 3/5 with pt able to self toilet and reach light objects from grocery shelves with mild discomfort (pain no greater than 2/10). STG Duration 04/03/19 Design Maker Goal (LTG) Pt will be able to unload & put away 7-8 dishes and hang clothes in her closet with minimal discomfort (pain no greater than 1/10). LTG Duration 06/02/19 Two Impairment Decreased L shoulder AROM Short Term Goal (STG) Pt will be independent on L shoulder PROM & AROM stretch and strengthening ex's. STG Duration 03/18/19 Mcfp Goal (LTG) Improve L shoulder AROM/PROM with pt able to reach up to high shelves and able to lift arms high enough to dress with pain no greater than 1/10. LTG Duration 04/03/19 One Impairment Lacks appropriate self care HEP. Mcfp Goal (LTG) Pt will be independent in a self care HEP. LTG Duration 06/02/19 (03/17/19: Progressing) Assessment Summary Assessment Pt shows improvement with shoulder rotation, no significant change with flexion. She is tolerating strengthening well. Physical Therapy Plan Frequency and Duration Frequency of Treatment 2x/Week Plan of Care Start Date 03/04/19 Plan of Care End Date 06/02/19 Next Visit Focus/Plan Next Note Type Treatment Note Next Visit Plan Cont warm up exercise with tyson, progress scapular depression and general shoulder strengthening. Add elbow strengthening. Improve L shoulder PROM/AROM and progression resisted RC as tolerated. HEP as appropriate for ROM & RC strengthening. Postural education and postural training with exercises. If pt agrees, use of cryotherapy or Hot packs only due to pt's many joint replacements and surgical corrections of her back.
--- NOTE | 2019-03-31 12:17 | PT.OTN ---
Current Diagnoses Muscle weakness (generalized) (03/31/19) Other symptoms and signs involving the musculoskeletal system (03/31/19) Unspecified injury of muscle(s) and tendon(s) of the rotator cuff of left shoulder, initial encounter (03/31/19) Unspecified injury of muscle(s) and tendon(s) of the rotator cuff of unspecified shoulder, initial encounter (03/31/19) Physical Therapy Treatment Note PT-OP-A Visit Information Start: 03/02/19 19:36 Freq: Status: Active Protocol: Document 03/31/19 11:17 LRN (Rec: 03/31/19 12:16 LRN [id number]) Out-Patient Physical Therapy Visit Information Visit Information Visit Type Treatment Note Visit Note 12 visits allowed Visit Start Time 11:17 Visit Stop Time 12:00 Total Visit Minutes 43 Visit Number 6 Number of CHIEF SECURITY OFFICER Visits 0 Evaluation Information Evaluation Date 03/04/19 Precautions Precautions LATEX ALLERGY OSTEOPOROSIS L shoulder replacement 04/06/12 R shoulder replacement 2014 R ankle replacement Chronic Back pain R TKA, R ANASTASIYA 02/06/2017 PT-OP-B Current Condition Start: 03/02/19 19:36 Freq: Status: Active Protocol: Document 03/04/19 11:26 LRN (Rec: 03/04/19 12:14 LRN [id number]) Current Condition History of Current Condition Onset Date 12/26/18 History of Current Condition Fell out of truck while at work. Held handle on R side, stepped down from truck the door jam yanked the L arm felt like it was torn from socket, she let go of holding strap and fell ~4ft to the ground landed on her L side. Prior Treatments and Tests Next day urgent care did X-ray of shoulder and found nothing broken. Recently had MRI done but results unknown. Records review shows pt was been seen for pain management 02/28/19, indicating moderate to severe multilevel Degenerative changes of the lumbar spine. MRI was recommended concerning potential for osteomyelitis. Developmental History Developmental History Both shoulders replaced. Treatment Goals Patient/Caregiver Goals Pt goal is to regain function and prior level of function. Prior Functional Status Baseline Function- ADL's Independent Baseline Function- Mobility Independent Baseline Function- Other No limitations. Could lift a 8 dishes into cupboards. Current Functional Impairments (Reported) Functional Limitations- ADL's R handed. Can't lift L arm up. Aches all the time. Doesn't use it because it hurts. Difficult with ADLS (dressing, toileting, getting groceries off top shelf, putting dishes away from top shelf, hanging clothes on closet is hard). Functional Limitations- Recreation/ Limited in sailboating. Hobbies Personal Factors Other Personal Factors That May Effect Lives alone. Osteoarthritis, Therapy/Recovery Multiple joint replacements ( Both shoulders have been replaced, L shoulder replacement 04/06/12; R shoulder replaced 10/23/2014. R ankle replacement, R TKA, R ANASTASIYA 02/06/2017). R thumb 2016 & L thumb 09/2015 surgery to remove 1 small bone of each hand. Osteoporsis, getting infusions, Bariatric surgery, Depression controlled w/ medications, chronic back pain , LATEX ALLERGY. On Oxycodone for 5 yrs. PT-OP-C Subjective Start: 03/02/19 19:36 Freq: Status: Active Protocol: Document 03/31/19 11:17 LRN (Rec: 03/31/19 12:16 LRN [id number]) OP-PT Subjective Patient Comments Patient Comments L shoulder feeling better than last session. L shoulder aches with use. No Percocet, did IBP this morning. PT-OP-E Functional Tests Start: 03/02/19 19:36 Freq: Status: Active Protocol: Document 03/04/19 11:26 LRN (Rec: 03/04/19 12:14 LRN [id number]) Functional Tests Apley's Scratch Test Action 1- Left Behind shoulder Action 1- Right Behind the back Action 2- Left T1 Action 2- Right T4 Action 3- Left T10 Action 3- Right T12 PT-OP-J Posture/Palpation/Skin Start: 03/02/19 19:36 Freq: Status: Active Protocol: Document 03/04/19 11:26 LRN (Rec: 03/04/19 19:10 LRN [id number]) Posture Evaluation Position Standing Head/C-Spine Posture Side Bent Left T-Spine Posture Flattened L-Spine Posture Decreased Lordosis Shoulder Posture (L) Rounded,(R) Rounded,(L) Forward,(R) Forward,(L) Elevated Scapula Posture (L) Winged Knee Posture (L) Genu Valgus,(R) Genu Valgus Comments Posture Comments Dowagers Hump Palpation Assessment Location L shoulder Palpation Location UT, Rotator Cuff muscles Palpation Findings Soft Tissue Tightness,Muscle Guarding,Tenderness PT-OP-K Range of Motion Start: 03/02/19 19:36 Freq: Status: Active Protocol: Document 03/31/19 11:17 LRN (Rec: 03/31/19 12:16 LRN [id number]) Shoulder Goniometric Range of Motion Shoulder Left Passive Shoulder ROM WFL No Testing Position Sitting Flexion 142 Abduction 108 Right Passive Shoulder ROM WFL Yes Testing Position Sitting Flexion 170 Abduction 168 Right Active Shoulder ROM WFL Yes Testing Position Sitting Flexion 168 Abduction 180 Left Active Shoulder ROM WFL No Testing Position Sitting Flexion 128 Abduction 115 PT-OP-M Strength Start: 03/02/19 19:36 Freq: Status: Active Protocol: Document 03/04/19 11:26 LRN (Rec: 03/04/19 19:10 LRN [id number]) Shoulder Strength Shoulder Manual Muscle Testing Right Reason Not Measured WFL Comments Generally 5/5. Left Flexion 2+ Poor+ Extension 5 Normal Abduction (C5) 2 Poor External Rotation 3- Fair- Internal Rotation 3- Fair- Elbow/Forearm Strength Elbow and Forearm Manual Muscle Testing Right Flexion (C6) 5 Normal Extension (C7) 5 Normal Left Flexion (C6) 3+ Fair+ Extension (C7) 4 Good Wrist Strength Wrist Manual Muscle Testing Right Reason Not Measured WFL Left Reason Not Measured WFL PT-OP-Q Treatments Start: 03/02/19 19:36 Freq: Status: Active Protocol: Document 03/31/19 11:17 LRN (Rec: 03/31/19 12:16 LRN [id number]) Therapeutic Exercises Sitting Exercises Elbow Curls Sitting Exercise Name Elbow Curls Side bilateral Resistance 2# Equipment Used Hand weight Reps/Minutes 15 x 2 Tyson Sitting Exercise Name Shoulder Flex & AB - PROM & AAROM Side left Equipment Used Overhead Tyson Comments 10 holds Active shoulder ER/IR Sitting Exercise Name Active shoulder ER/IR Side bilateral Resistance Lev 1 Reps/Minutes 10 x 3 each Standing Exercises Scapular depressin/retraction Standing Exercise Name Scapular depressin/retraction Reps/Minutes 18' Comments Extra time needed to train pt in proper movement. Scapular Depression Standing Exercise Name Lat Pull Down Side bilateral Equipment Used Lev 2 TBand Reps/Minutes 15 x Scapular Retraction Standing Exercise Name Row Side bilateral Resistance Lev 1 T-Band Reps/Minutes 15 x 1 PT-OP-T Assessment and Plan Start: 03/02/19 19:36 Freq: Status: Active Protocol: Document 03/31/19 11:17 LRN (Rec: 03/31/19 12:16 LRN [id number]) Physical Therapy Assessment Goals Four Impairment Pt light duty at work. Graphics Coordinator Goal (LTG) Pt will be able to return to work at prior level of function. LTG Duration 06/02/19 Three Impairment Decreased L shoulder strength Short Term Goal (STG) Improve L shoulder strength to generally 3/5 with pt able to self toilet and reach light objects from grocery shelves with mild discomfort (pain no greater than 2/10). STG Duration 04/03/19 Graphics Coordinator Goal (LTG) Pt will be able to unload & put away 7-8 dishes and hang clothes in her closet with minimal discomfort (pain no greater than 1/10). LTG Duration 06/02/19 Two Impairment Decreased L shoulder AROM Short Term Goal (STG) Pt will be independent on L shoulder PROM & AROM stretch and strengthening ex's. STG Duration 03/18/19 (03/31/19: MET GOAL) Graphics Coordinator Goal (LTG) Improve L shoulder AROM/PROM with pt able to reach up to high shelves and able to lift arms high enough to dress with pain no greater than 1/10. LTG Duration 04/03/19 One Impairment Lacks appropriate self care HEP. Graphics Coordinator Goal (LTG) Pt will be independent in a self care HEP. LTG Duration 06/02/19 (03/17/19: Progressing) Assessment Summary Assessment Pt appears to be moving her L shoulder with greater ease, mobility and strength. She demonstrates weakness of scapular stabilizers, especially for scap depression and retraction. Pt has winging R scapula with ex's. Physical Therapy Plan Frequency and Duration Frequency of Treatment 2x/Week Plan of Care Start Date 03/04/19 Plan of Care End Date 06/02/19 Next Visit Focus/Plan Next Note Type Treatment Note Next Visit Plan Warm up exercise with tyson, add scapular protraction strengthening. Check shoulder strength. Check & progress scapular depression and retraction. Improve L shoulder PROM/AROM and progression resisted RC as tolerated. HEP as appropriate for ROM & RC strengthening. Postural education and postural training with exercises. If pt agrees, use of cryotherapy, although pt doesn't like cryotherapy.
--- NOTE | 2019-04-05 17:06 | PT-OP ANOTE ---
Pt cancelled due to conflicting appts.
--- NOTE | 2019-04-12 12:22 | PT.OTN ---
Current Diagnoses Muscle weakness (generalized) (04/12/19) Other symptoms and signs involving the musculoskeletal system (04/12/19) Unspecified injury of muscle(s) and tendon(s) of the rotator cuff of left shoulder, initial encounter (04/12/19) Unspecified injury of muscle(s) and tendon(s) of the rotator cuff of unspecified shoulder, initial encounter (04/12/19) Physical Therapy Treatment Note PT-OP-A Visit Information Start: 03/02/19 19:36 Freq: Status: Active Protocol: Document 04/12/19 11:25 LRN (Rec: 04/12/19 12:21 LRN [id number]) Out-Patient Physical Therapy Visit Information Visit Information Visit Type Treatment Note Visit Note 12 visits allowed Visit Start Time 11:25 Visit Stop Time 12:08 Total Visit Minutes 43 Visit Number 7 Number of INSPECTOR WATER POLLUTION CONTROL Visits 0 Evaluation Information Evaluation Date 03/04/19 Precautions Precautions LATEX ALLERGY OSTEOPOROSIS L shoulder replacement 04/06/12 R shoulder replacement 2014 R ankle replacement Chronic Back pain R TKA, R ANASTASIYA 02/06/2017 PT-OP-B Current Condition Start: 03/02/19 19:36 Freq: Status: Active Protocol: Document 03/04/19 11:26 LRN (Rec: 03/04/19 12:14 LRN [id number]) Current Condition History of Current Condition Onset Date 12/26/18 History of Current Condition Fell out of truck while at work. Held handle on R side, stepped down from truck the door jam yanked the L arm felt like it was torn from socket, she let go of holding strap and fell ~4ft to the ground landed on her L side. Prior Treatments and Tests Next day urgent care did X-ray of shoulder and found nothing broken. Recently had MRI done but results unknown. Records review shows pt was been seen for pain management 02/28/19, indicating moderate to severe multilevel Degenerative changes of the lumbar spine. MRI was recommended concerning potential for osteomyelitis. Developmental History Developmental History Both shoulders replaced. Treatment Goals Patient/Caregiver Goals Pt goal is to regain function and prior level of function. Prior Functional Status Baseline Function- ADL's Independent Baseline Function- Mobility Independent Baseline Function- Other No limitations. Could lift a 8 dishes into cupboards. Current Functional Impairments (Reported) Functional Limitations- ADL's R handed. Can't lift L arm up. Aches all the time. Doesn't use it because it hurts. Difficult with ADLS (dressing, toileting, getting groceries off top shelf, putting dishes away from top shelf, hanging clothes on closet is hard). Functional Limitations- Recreation/ Limited in sailboating. Hobbies Personal Factors Other Personal Factors That May Effect Lives alone. Osteoarthritis, Therapy/Recovery Multiple joint replacements ( Both shoulders have been replaced, L shoulder replacement 04/06/12; R shoulder replaced 10/23/2014. R ankle replacement, R TKA, R ANASTASIYA 02/06/2017). R thumb 2016 & L thumb 09/2015 surgery to remove 1 small bone of each hand. Osteoporsis, getting infusions, Bariatric surgery, Depression controlled w/ medications, chronic back pain , LATEX ALLERGY. On Oxycodone for 5 yrs. PT-OP-C Subjective Start: 03/02/19 19:36 Freq: Status: Active Protocol: Document 04/12/19 11:25 LRN (Rec: 04/12/19 12:21 LRN [id number]) OP-PT Subjective Patient Comments Patient Comments Hip surgery in 1 week. L shoulder is getting better, but having trouble strengthening shoulder depression. Limited in ability to lift mostly motion, maybe, also strength. PT-OP-E Functional Tests Start: 03/02/19 19:36 Freq: Status: Active Protocol: Document 03/04/19 11:26 LRN (Rec: 03/04/19 12:14 LRN [id number]) Functional Tests Apley's Scratch Test Action 1- Left Behind shoulder Action 1- Right Behind the back Action 2- Left T1 Action 2- Right T4 Action 3- Left T10 Action 3- Right T12 PT-OP-J Posture/Palpation/Skin Start: 03/02/19 19:36 Freq: Status: Active Protocol: Document 03/04/19 11:26 LRN (Rec: 03/04/19 19:10 LRN [id number]) Posture Evaluation Position Standing Head/C-Spine Posture Side Bent Left T-Spine Posture Flattened L-Spine Posture Decreased Lordosis Shoulder Posture (L) Rounded,(R) Rounded,(L) Forward,(R) Forward,(L) Elevated Scapula Posture (L) Winged Knee Posture (L) Genu Valgus,(R) Genu Valgus Comments Posture Comments Dowagers Hump Palpation Assessment Location L shoulder Palpation Location UT, Rotator Cuff muscles Palpation Findings Soft Tissue Tightness,Muscle Guarding,Tenderness PT-OP-K Range of Motion Start: 03/02/19 19:36 Freq: Status: Active Protocol: Document 03/31/19 11:17 LRN (Rec: 03/31/19 12:16 LRN [id number]) Shoulder Goniometric Range of Motion Shoulder Left Passive Shoulder ROM WFL No Testing Position Sitting Flexion 142 Abduction 108 Right Passive Shoulder ROM WFL Yes Testing Position Sitting Flexion 170 Abduction 168 Right Active Shoulder ROM WFL Yes Testing Position Sitting Flexion 168 Abduction 180 Left Active Shoulder ROM WFL No Testing Position Sitting Flexion 128 Abduction 115 PT-OP-M Strength Start: 03/02/19 19:36 Freq: Status: Active Protocol: Document 03/04/19 11:26 LRN (Rec: 03/04/19 19:10 LRN [id number]) Shoulder Strength Shoulder Manual Muscle Testing Right Reason Not Measured WFL Comments Generally 5/5. Left Flexion 2+ Poor+ Extension 5 Normal Abduction (C5) 2 Poor External Rotation 3- Fair- Internal Rotation 3- Fair- Elbow/Forearm Strength Elbow and Forearm Manual Muscle Testing Right Flexion (C6) 5 Normal Extension (C7) 5 Normal Left Flexion (C6) 3+ Fair+ Extension (C7) 4 Good Wrist Strength Wrist Manual Muscle Testing Right Reason Not Measured WFL Left Reason Not Measured WFL PT-OP-Q Treatments Start: 03/02/19 19:36 Freq: Status: Active Protocol: Document 04/12/19 11:25 LRN (Rec: 04/12/19 12:21 LRN [id number]) Therapeutic Exercises Supine Exercises Lat pull down Supine Exercise Name LAT Pull down Resistance Lev 1 TB Reps/Minutes 10x Shoulder ER Supine Exercise Name PROM & ARROM Side left Reps/Minutes 6' Comments 65 deg's Shoulder Flex Supine Exercise Name Shoulder Flex PROM Side left Reps/Minutes 1' Comments Flex 145 deg's Sitting Exercises Alternate Arm lifts Sitting Exercise Name Alternate Arm Lifts Side bilateral Reps/Minutes 15x Horiz AB/AD Sitting Exercise Name Horiz AB/AD Side bilateral Reps/Minutes 15 x 2 Tricep ext Sitting Exercise Name Tricep Ext Side bilateral Resistance 1# Comments Assist to hold arms in max shldr flex Elbow Curls Sitting Exercise Name Elbow Curls Side bilateral Resistance 2#, 3#, Equipment Used Hand weight Reps/Minutes 15 x 2 Tyson Sitting Exercise Name Shoulder Flex & AB - PROM & AAROM Side left Equipment Used Overhead Tyson Comments 10 holds Active shoulder ER/IR Sitting Exercise Name Active shoulder ER/IR Side bilateral Resistance w/o & w/Lev 1 Reps/Minutes 10 x 3 each PT-OP-T Assessment and Plan Start: 03/02/19 19:36 Freq: Status: Active Protocol: Document 04/12/19 11:25 LRN (Rec: 04/12/19 12:21 LRN [id number]) Physical Therapy Assessment Goals Four Impairment Pt light duty at work. Mcc Goal (LTG) Pt will be able to return to work at prior level of function. LTG Duration 06/02/19 Three Impairment Decreased L shoulder strength Short Term Goal (STG) Improve L shoulder strength to generally 3/5 with pt able to self toilet and reach light objects from grocery shelves with mild discomfort (pain no greater than 2/10). STG Duration 04/03/19 Mcc Goal (LTG) Pt will be able to unload & put away 7-8 dishes and hang clothes in her closet with minimal discomfort (pain no greater than 1/10). LTG Duration 06/02/19 Two Impairment Decreased L shoulder AROM Short Term Goal (STG) Pt will be independent on L shoulder PROM & AROM stretch and strengthening ex's. STG Duration 03/18/19 (03/31/19: MET GOAL) Mcc Goal (LTG) Improve L shoulder AROM/PROM with pt able to reach up to high shelves and able to lift arms high enough to dress with pain no greater than 1/10. LTG Duration 04/03/19 One Impairment Lacks appropriate self care HEP. Pit Operator Goal (LTG) Pt will be independent in a self care HEP. LTG Duration 06/02/19 (03/17/19: Progressing) Assessment Summary Assessment Slight improvement in active L shoulder flex. Pt weak in shoulders. scapular stabilizers, especially for scap depression and retraction . Winging R scapula is visible with ex's. Physical Therapy Plan Frequency and Duration Frequency of Treatment 2x/Week Plan of Care Start Date 03/04/19 Plan of Care End Date 06/02/19 Next Visit Focus/Plan Next Note Type Treatment Note Next Visit Plan Warm up exercise with UBE or tyson. Focus on strengthening of L shoulder ( RC, Scap stab). Give HEP of shoulder and scapular strengthening (T-Band) & add scapular protraction strengthening. Indep with HEP due to hip surgery next week. Pt to focus on L shoulder PROM/AROM at home. Postural education and postural training with exercises. No ice to end because pt doesn't like cryotherapy.
--- NOTE | 2019-04-15 12:21 | PT.OTN ---
Current Diagnoses Muscle weakness (generalized) (04/15/19) Other symptoms and signs involving the musculoskeletal system (04/15/19) Unspecified injury of muscle(s) and tendon(s) of the rotator cuff of left shoulder, initial encounter (04/15/19) Unspecified injury of muscle(s) and tendon(s) of the rotator cuff of unspecified shoulder, initial encounter (04/15/19) Physical Therapy Treatment Note PT-OP-A Visit Information Start: 03/02/19 19:36 Freq: Status: Active Protocol: Document 04/15/19 11:20 LRN (Rec: 04/15/19 12:17 LRN [id number]) Out-Patient Physical Therapy Visit Information Visit Information Visit Type Treatment Note Visit Start Time 11:20 Visit Stop Time 12:04 Total Visit Minutes 44 Visit Number 8 Number of GAS COMBUSTION ENGINEER Visits 0 Evaluation Information Evaluation Date 03/04/19 Precautions Precautions LATEX ALLERGY OSTEOPOROSIS L shoulder replacement 04/06/12 R shoulder replacement 2014 R ankle replacement Chronic Back pain R TKA, R ANASTASIYA 02/06/2017 PT-OP-B Current Condition Start: 03/02/19 19:36 Freq: Status: Active Protocol: Document 03/04/19 11:26 LRN (Rec: 03/04/19 12:14 LRN [id number]) Current Condition History of Current Condition Onset Date 12/26/18 History of Current Condition Fell out of truck while at work. Held handle on R side, stepped down from truck the door jam yanked the L arm felt like it was torn from socket, she let go of holding strap and fell ~4ft to the ground landed on her L side. Prior Treatments and Tests Next day urgent care did X-ray of shoulder and found nothing broken. Recently had MRI done but results unknown. Records review shows pt was been seen for pain management 02/28/19, indicating moderate to severe multilevel Degenerative changes of the lumbar spine. MRI was recommended concerning potential for osteomyelitis. Developmental History Developmental History Both shoulders replaced. Treatment Goals Patient/Caregiver Goals Pt goal is to regain function and prior level of function. Prior Functional Status Baseline Function- ADL's Independent Baseline Function- Mobility Independent Baseline Function- Other No limitations. Could lift a 8 dishes into cupboards. Current Functional Impairments (Reported) Functional Limitations- ADL's R handed. Can't lift L arm up. Aches all the time. Doesn't use it because it hurts. Difficult with ADLS (dressing, toileting, getting groceries off top shelf, putting dishes away from top shelf, hanging clothes on closet is hard). Functional Limitations- Recreation/ Limited in sailboating. Hobbies Personal Factors Other Personal Factors That May Effect Lives alone. Osteoarthritis, Therapy/Recovery Multiple joint replacements ( Both shoulders have been replaced, L shoulder replacement 04/06/12; R shoulder replaced 10/23/2014. R ankle replacement, R TKA, R ANASTASIYA 02/06/2017). R thumb 2016 & L thumb 09/2015 surgery to remove 1 small bone of each hand. Osteoporsis, getting infusions, Bariatric surgery, Depression controlled w/ medications, chronic back pain , LATEX ALLERGY. On Oxycodone for 5 yrs. PT-OP-C Subjective Start: 03/02/19 19:36 Freq: Status: Active Protocol: Document 04/15/19 11:20 LRN (Rec: 04/15/19 12:17 LRN [id number]) OP-PT Subjective Patient Comments Patient Comments States she is more sore in the shoulder. She bought an overdoor tyson she hasn't installed yet. She bought hand weights to do ex's. Hasn 't called her [employer] rep. Can self toilet without difficulty . Can reach light objects off grocery store shelves as long as it's not too high. Not able to lift as high as R side by 1 shelf. Can put away 2 dishes at a time. Still using R hand to hang clothes, might be able to 1 at a time, will check it. PT-OP-E Functional Tests Start: 03/02/19 19:36 Freq: Status: Active Protocol: Document 03/04/19 11:26 LRN (Rec: 03/04/19 12:14 LRN [id number]) Functional Tests Jazmineey's Scratch Test Action 1- Left Behind shoulder Action 1- Right Behind the back Action 2- Left T1 Action 2- Right T4 Action 3- Left T10 Action 3- Right T12 PT-OP-J Posture/Palpation/Skin Start: 03/02/19 19:36 Freq: Status: Active Protocol: Document 03/04/19 11:26 LRN (Rec: 03/04/19 19:10 LRN [id number]) Posture Evaluation Position Standing Head/C-Spine Posture Side Bent Left T-Spine Posture Flattened L-Spine Posture Decreased Lordosis Shoulder Posture (L) Rounded,(R) Rounded,(L) Forward,(R) Forward,(L) Elevated Scapula Posture (L) Winged Knee Posture (L) Genu Valgus,(R) Genu Valgus Comments Posture Comments Dowagers Hump Palpation Assessment Location L shoulder Palpation Location UT, Rotator Cuff muscles Palpation Findings Soft Tissue Tightness,Muscle Guarding,Tenderness PT-OP-K Range of Motion Start: 03/02/19 19:36 Freq: Status: Active Protocol: Document 03/31/19 11:17 LRN (Rec: 03/31/19 12:16 LRN [id number]) Shoulder Goniometric Range of Motion Shoulder Left Passive Shoulder ROM WFL No Testing Position Sitting Flexion 142 Abduction 108 Right Passive Shoulder ROM WFL Yes Testing Position Sitting Flexion 170 Abduction 168 Right Active Shoulder ROM WFL Yes Testing Position Sitting Flexion 168 Abduction 180 Left Active Shoulder ROM WFL No Testing Position Sitting Flexion 128 Abduction 115 PT-OP-M Strength Start: 03/02/19 19:36 Freq: Status: Active Protocol: Document 03/04/19 11:26 LRN (Rec: 03/04/19 19:10 LRN [id number]) Shoulder Strength Shoulder Manual Muscle Testing Right Reason Not Measured WFL Comments Generally 5/5. Left Flexion 2+ Poor+ Extension 5 Normal Abduction (C5) 2 Poor External Rotation 3- Fair- Internal Rotation 3- Fair- Elbow/Forearm Strength Elbow and Forearm Manual Muscle Testing Right Flexion (C6) 5 Normal Extension (C7) 5 Normal Left Flexion (C6) 3+ Fair+ Extension (C7) 4 Good Wrist Strength Wrist Manual Muscle Testing Right Reason Not Measured WFL Left Reason Not Measured WFL PT-OP-Q Treatments Start: 03/02/19 19:36 Freq: Status: Active Protocol: Document 04/15/19 11:20 LRN (Rec: 04/15/19 12:17 LRN [id number]) Cardio Equipment Upper Body Ergometer (UBE) Duration (Minutes) 8 RPM 90 Height 5 Other fwd/bkwd Therapeutic Exercises Sitting Exercises Alternate Arm lifts Sitting Exercise Name Alternate Arm Lifts in diagonal Side bilateral Reps/Minutes 10 x Standing Exercises ER/IR Standing Exercise Name Reaching behind neck > reaching behnd back Reps/Minutes 10x Arm Circles Standing Exercise Name Arm Circles Reps/Minutes 5x fwd/bkwd Scapular Depression Standing Exercise Name Lat Pull Down Side bilateral Equipment Used Lev 1 TBand Reps/Minutes 10 x Scapular Retraction Standing Exercise Name Row Side bilateral Resistance Lev 1 T-Band Reps/Minutes 10 x 1 Self-Care/Home Management Treatment Education Patient Education Home Exercise Program Activities Self-Care/Home Management Activities Issued & reviewed 4 handouts for HEP of ROM & scapular/ shoulder strengthening with hand wgt (shoulder flex) and with T-Band (all motions), Pt issued Strap for ex with T- Band anchored in doorway and issued Lev 1 & Lev 2 long T- Band for scapular ex's. PT-OP-T Assessment and Plan Start: 03/02/19 19:36 Freq: Status: Active Protocol: Document 04/15/19 11:20 LRN (Rec: 04/15/19 12:17 LRN [id number]) Physical Therapy Assessment Goals Four Impairment Pt light duty at work. Fitness Trainer Goal (LTG) Pt will be able to return to work at prior level of function. LTG Duration 06/02/19 Three Impairment Decreased L shoulder strength Short Term Goal (STG) Improve L shoulder strength to generally 3/5 with pt able to self toilet and reach light objects from grocery shelves with mild discomfort (pain no greater than 2/10). STG Duration 04/03/19 (04/15/19: MET GOAL) Assisted Goal (LTG) Pt will be able to unload & put away 7-8 dishes and hang clothes in her closet with minimal discomfort (pain no greater than 1/10). LTG Duration 06/02/19 (04/15/19: Can put 2 dishes away) Two Impairment Decreased L shoulder AROM Short Term Goal (STG) Pt will be independent on L shoulder PROM & AROM stretch and strengthening ex's. STG Duration 03/18/19 (03/31/19: MET GOAL) Assisted Goal (LTG) Improve L shoulder AROM/PROM with pt able to reach up to high shelves and able to lift arms high enough to dress with pain no greater than 1/10. LTG Duration 04/03/19 (04/15/19: Progressing) One Impairment Lacks appropriate self care HEP. Assisted Goal (LTG) Pt will be independent in a self care HEP. LTG Duration 06/02/19 (04/15/19: Progressing) Progress Towards Goals Progress Towards Goals Progressing Toward Goals Progress Comments Goal 1: LTG: Progressing Goal 2: STG: MET LTG: Progressing Goal 3: STG: MET LTG: Progressing Goal 4: LTG: Not Met Assessment Summary Assessment Pt may be overworking her L shoulder to improve strength and was advised to progress slowly with strengthening to minimize pain between ex's. Her pain is at the anterior L shoulder; therefore reinforced pt knowledge of ROM precautions to prevent dislocation at L shoulder during ex's. Pt is weak with scapular stabilizers; therefore further strengthening is needed. Pt rehab might be hindered due to elective hip surgery, but pt has great attitude and is expected to continue to progress even after her hip surgery next week. Physical Therapy Plan Frequency and Duration Frequency of Treatment 2x/Week Plan of Care Start Date 03/04/19 Plan of Care End Date 06/02/19 Next Visit Focus/Plan Next Note Type Treatment Note Next Visit Plan Warm up exercise with UBE or tyson. Review issued HEP & add scapular protraction strengthening. Focus on strengthening of L shoulder ( RC, Scap stab). Pt having hip surgery next week. Pt to focus on L shoulder PROM/ AROM/ARROM at home with therapy 1-2x/week as pt is able to schedule and tolerate. Continue postural education and postural training with exercises. No ice to end because pt doesn't like cryotherapy.
--- NOTE | 2019-04-19 12:31 | PT.OTN ---
Current Diagnoses Muscle weakness (generalized) (04/19/19) Other symptoms and signs involving the musculoskeletal system (04/19/19) Unspecified injury of muscle(s) and tendon(s) of the rotator cuff of left shoulder, initial encounter (04/19/19) Unspecified injury of muscle(s) and tendon(s) of the rotator cuff of unspecified shoulder, initial encounter (04/19/19) Physical Therapy Treatment Note PT-OP-A Visit Information Start: 03/02/19 19:36 Freq: Status: Active Protocol: Document 04/19/19 11:22 LRN (Rec: 04/19/19 12:30 LRN [id number]) Out-Patient Physical Therapy Visit Information Visit Information Visit Type Treatment Note Visit Note 12 visits allowed Visit Start Time 11:22 Visit Stop Time 12:12 Total Visit Minutes 50 Visit Number 9 Number of ELASTIC ATTACHER OVERLOCK Visits 0 Evaluation Information Evaluation Date 03/04/19 Precautions Precautions LATEX ALLERGY OSTEOPOROSIS L shoulder replacement 04/06/12 R shoulder replacement 2014 R ankle replacement Chronic Back pain R TKA, R ANASTASIYA 02/06/2017 PT-OP-B Current Condition Start: 03/02/19 19:36 Freq: Status: Active Protocol: Document 03/04/19 11:26 LRN (Rec: 03/04/19 12:14 LRN [id number]) Current Condition History of Current Condition Onset Date 12/26/18 History of Current Condition Fell out of truck while at work. Held handle on R side, stepped down from truck the door jam yanked the L arm felt like it was torn from socket, she let go of holding strap and fell ~4ft to the ground landed on her L side. Prior Treatments and Tests Next day urgent care did X-ray of shoulder and found nothing broken. Recently had MRI done but results unknown. Records review shows pt was been seen for pain management 02/28/19, indicating moderate to severe multilevel Degenerative changes of the lumbar spine. MRI was recommended concerning potential for osteomyelitis. Developmental History Developmental History Both shoulders replaced. Treatment Goals Patient/Caregiver Goals Pt goal is to regain function and prior level of function. Prior Functional Status Baseline Function- ADL's Independent Baseline Function- Mobility Independent Baseline Function- Other No limitations. Could lift a 8 dishes into cupboards. Current Functional Impairments (Reported) Functional Limitations- ADL's R handed. Can't lift L arm up. Aches all the time. Doesn't use it because it hurts. Difficult with ADLS (dressing, toileting, getting groceries off top shelf, putting dishes away from top shelf, hanging clothes on closet is hard). Functional Limitations- Recreation/ Limited in sailboating. Hobbies Personal Factors Other Personal Factors That May Effect Lives alone. Osteoarthritis, Therapy/Recovery Multiple joint replacements ( Both shoulders have been replaced, L shoulder replacement 04/06/12; R shoulder replaced 10/23/2014. R ankle replacement, R TKA, R ANASTASIYA 02/06/2017). R thumb 2016 & L thumb 09/2015 surgery to remove 1 small bone of each hand. Osteoporsis, getting infusions, Bariatric surgery, Depression controlled w/ medications, chronic back pain , LATEX ALLERGY. On Oxycodone for 5 yrs. PT-OP-C Subjective Start: 03/02/19 19:36 Freq: Status: Active Protocol: Document 04/19/19 11:22 LRN (Rec: 04/19/19 12:30 LRN [id number]) OP-PT Subjective Patient Comments Patient Comments Had to take a Percocet because was off med for the surgery tomorrow. C/O bilateral forearm pain after stopping IBP type meds. Pain rated 6/ 10, (this morning 8/10). Has not spoken with L&I disease case manager, tried calling but couldn't get a hold of her. PT-OP-E Functional Tests Start: 03/02/19 19:36 Freq: Status: Active Protocol: Document 03/04/19 11:26 LRN (Rec: 03/04/19 12:14 LRN [id number]) Functional Tests Apley's Scratch Test Action 1- Left Behind shoulder Action 1- Right Behind the back Action 2- Left T1 Action 2- Right T4 Action 3- Left T10 Action 3- Right T12 PT-OP-J Posture/Palpation/Skin Start: 03/02/19 19:36 Freq: Status: Active Protocol: Document 03/04/19 11:26 LRN (Rec: 03/04/19 19:10 LRN [id number]) Posture Evaluation Position Standing Head/C-Spine Posture Side Bent Left T-Spine Posture Flattened L-Spine Posture Decreased Lordosis Shoulder Posture (L) Rounded,(R) Rounded,(L) Forward,(R) Forward,(L) Elevated Scapula Posture (L) Winged Knee Posture (L) Genu Valgus,(R) Genu Valgus Comments Posture Comments Dowagers Hump Palpation Assessment Location L shoulder Palpation Location UT, Rotator Cuff muscles Palpation Findings Soft Tissue Tightness,Muscle Guarding,Tenderness PT-OP-K Range of Motion Start: 03/02/19 19:36 Freq: Status: Active Protocol: Document 04/19/19 11:22 LRN (Rec: 04/19/19 12:30 LRN [id number]) Shoulder Goniometric Range of Motion Shoulder Left Passive Shoulder ROM WFL No Testing Position Supine Flexion 145 Abduction 120 External Rotation at 90 degrees 45 Abduction Internal Rotation 58 Right Passive Shoulder ROM WFL Yes Testing Position Supine Flexion 180 Abduction 180 External Rotation at 90 degrees 90 Abduction Internal Rotation 60 Right Active Shoulder ROM WFL Yes Testing Position Sitting Flexion 178 Abduction 178 Left Active Shoulder ROM WFL No Testing Position Sitting Flexion 140 Abduction 150 Shoulder ROM Limitations Shoulder ROM Limitations Muscle Weakness Comments Limited L shoulder mobility by : Poor joint mechanics and weakness. L shoulder active AB is measured within scapular plane . PT-OP-M Strength Start: 03/02/19 19:36 Freq: Status: Active Protocol: Document 04/19/19 11:22 LRN (Rec: 04/19/19 12:30 LRN [id number]) Shoulder Strength Shoulder Manual Muscle Testing Right Reason Not Measured WFL Comments Generally 5/5. Left Flexion 3- Fair- Extension 5 Normal Abduction (C5) 2+ Poor+ Adduction 2 Poor External Rotation 3+ Fair+ Internal Rotation 4- Good- PT-OP-Q Treatments Start: 03/02/19 19:36 Freq: Status: Active Protocol: Document 04/19/19 11:22 LRN (Rec: 04/19/19 12:30 LRN [id number]) Cardio Equipment Upper Body Ergometer (UBE) Duration (Minutes) 8 RPM 90 Height 5 Other fwd/bkwd Therapeutic Exercises Supine Exercises Shoulder IR/ER Supine Exercise Name Shoulder IR/ER stretch Comments ROM taken Shoulder ER Supine Exercise Name PROM Comments 45 deg's Shoulder Flex Supine Exercise Name Shoulder Flex PROM Side left Reps/Minutes 1' Comments Flex 145 deg's Sitting Exercises Scapular Protraction Sitting Exercise Name Scapular protraction Side bilateral Equipment Used Lev 2 T-Band Reps/Minutes 15x Alternate Arm lifts Sitting Exercise Name Alternate Arm Lifts in diagonal Side bilateral Equipment Used 1#, 0# Reps/Minutes 10x, 15x respectivley Horiz AB/AD Sitting Exercise Name Horiz AB/AD Side bilateral Resistance 1#, 0# Reps/Minutes 8x 15x, respectively Active shoulder ER/IR Sitting Exercise Name Active shoulder ER/IR Side bilateral Reps/Minutes 15 x 2 each Standing Exercises ER/IR Standing Exercise Name Reaching behind neck > reaching behnd back Reps/Minutes 10x Scapular Depression Standing Exercise Name Lat Pull Down Side bilateral Equipment Used Lev 1 TBand Reps/Minutes 10 x Scapular Retraction Standing Exercise Name Row Side bilateral Resistance Lev 2 T-Band Reps/Minutes 15 x 1 Self-Care/Home Management Treatment Education Patient Education Home Exercise Program Other Education Educated pt in proper posturing for the upper back and shoulders. Recommendations using pillows in the low back to help cue for proper sitting posture. Activities Self-Care/Home Management Activities Issued & reviewed HEP handouts : Scapular protraction strengthening in supine & standing. PT-OP-T Assessment and Plan Start: 03/02/19 19:36 Freq: Status: Active Protocol: Document 04/19/19 11:22 LRN (Rec: 04/19/19 12:30 LRN [id number]) Physical Therapy Assessment Goals Four Impairment Pt light duty at work. Senior Care Goal (LTG) Pt will be able to return to work at prior level of function. LTG Duration 06/02/19 Three Impairment Decreased L shoulder strength Short Term Goal (STG) Improve L shoulder strength to generally 3/5 with pt able to self toilet and reach light objects from grocery shelves with mild discomfort (pain no greater than 2/10). STG Duration 04/03/19 (04/15/19: MET GOAL) Senior Care Goal (LTG) Pt will be able to unload & put away 7-8 dishes and hang clothes in her closet with minimal discomfort (pain no greater than 1/10). LTG Duration 06/02/19 (04/15/19: Can put 2 dishes away) Two Impairment Decreased L shoulder AROM Short Term Goal (STG) Pt will be independent on L shoulder PROM & AROM stretch and strengthening ex's. STG Duration 03/18/19 (03/31/19: MET GOAL) Senior Care Goal (LTG) Improve L shoulder AROM/PROM with pt able to reach up to high shelves and able to lift arms high enough to dress with pain no greater than 1/10. LTG Duration 04/03/19 (04/15/19: Progressing) One Impairment Lacks appropriate self care HEP. Senior Care Goal (LTG) Pt will be independent in a self care HEP. LTG Duration 06/02/19 (04/19/19: Progressing) Assessment Summary Assessment Pt has improved with L shoulder mobility, but weakness persists. Pt appears to have a good understanding of her need to maintain proper posture with exercises and must work towards new postural habits. The pt needs further rehab for strengthening to return pt to her prior functional level. Physical Therapy Plan Frequency and Duration Frequency of Treatment 2x/Week Plan of Care Start Date 03/04/19 Plan of Care End Date 06/02/19 Next Visit Focus/Plan Next Note Type Treatment Note Next Visit Plan Request more therapy visits. Warm up exercise with UBE or tyson. Focus on strengthening of L shoulder ( RC, Scap stab). Pt having hip surgery tomorrow. Pt to focus on L shoulder PROM/AROM /ARROM at home with therapy 1- 2x/week as pt is able to schedule and tolerate. Continue postural training with exercises. No ice to end because pt doesn't like cryotherapy.
--- NOTE | 2019-05-03 12:31 | PT.OTN ---
Current Diagnoses Muscle weakness (generalized) (05/03/19) Other symptoms and signs involving the musculoskeletal system (05/03/19) Unspecified injury of muscle(s) and tendon(s) of the rotator cuff of left shoulder, initial encounter (05/03/19) Unspecified injury of muscle(s) and tendon(s) of the rotator cuff of unspecified shoulder, initial encounter (05/03/19) Physical Therapy Treatment Note PT-OP-A Visit Information Start: 03/02/19 19:36 Freq: Status: Active Protocol: Document 05/03/19 09:48 LRN (Rec: 05/03/19 10:38 LRN [id number]) Out-Patient Physical Therapy Visit Information Visit Information Visit Type Progress Note Visit Start Time 09:48 Visit Stop Time 10:38 Total Visit Minutes 50 Visit Number 10 Evaluation Information Evaluation Date 03/04/19 Precautions Precautions LATEX ALLERGY OSTEOPOROSIS L shoulder replacement 04/06/12 R shoulder replacement 2014 R ankle replacement Chronic Back pain R TKA, R ANASTASIYA 02/06/2017 PT-OP-B Current Condition Start: 03/02/19 19:36 Freq: Status: Active Protocol: Document 05/03/19 09:48 LRN (Rec: 05/03/19 10:38 LRN [id number]) Current Condition History of Current Condition Onset Date 12/26/18 Current Complaints Pain in L shoulder 06/02 History of Current Condition Fell out of truck while at work. Held handle on R side, stepped down from truck the door jam yanked the L arm felt like it was torn from socket, she let go of holding strap and fell ~4ft to the ground landed on her L side. Pt receiving PT from 03/04/19 to 04/19/19, she underwent L posterior ANASTASIYA surgery 05/19/19. Today returning to complete her L shoulder rehab. Prior Treatments and Tests Next day urgent care did X-ray of shoulder and found nothing broken. Recently had MRI done but results unknown. Records review shows pt was been seen for pain management 02/28/19, indicating moderate to severe multilevel Degenerative changes of the lumbar spine. MRI was recommended concerning potential for osteomyelitis. Developmental History Developmental History Both shoulders replaced. Treatment Goals Patient/Caregiver Goals Pt goal is to regain function and mobility of L arm to prior level of function. Prior Functional Status Baseline Function- ADL's Independent Baseline Function- Mobility Independent Baseline Function- Other No limitations. Could lift a 8 dishes into cupboards. Current Functional Impairments (Reported) Functional Limitations- ADL's Able to lift 2-3 plates above shoulder height. 10% difficulty with ADLS ( dressing, toileting, getting groceries off top shelf, putting dishes away from top shelf, hanging clothes in closet is hard but can hang one item at a time). Functional Limitations- Mobility/Gait Using a cane on R side. Functional Limitations- Recreation/ Limited in sailboating. Hobbies Personal Factors Other Personal Factors That May Effect Recent L ANASTASIYA - 05/19/19. Therapy/Recovery Lives alone. Osteoarthritis, Multiple joint replacements ( Both shoulders have been replaced, L shoulder replacement 04/06/12; R shoulder replaced 10/23/2014. R ankle replacement, R TKA, R ANASTASIYA 02/06/2017). R thumb 2016 & L thumb 09/2015 surgery to remove 1 small bone of each hand. Osteoporsis, getting infusions, Bariatric surgery, Depression controlled w/ medications, chronic back pain , LATEX ALLERGY. On Oxycodone for 5 yrs. PT-OP-C Subjective Start: 03/02/19 19:36 Freq: Status: Active Protocol: Document 05/03/19 09:48 LRN (Rec: 05/03/19 10:38 LRN [id number]) OP-PT Subjective Patient Comments Patient Comments Has been working on the L shoulder, somedays are better than others. Arthritic flare up 2 days ago and made everything hurt. PT-OP-E Functional Tests Start: 03/02/19 19:36 Freq: Status: Active Protocol: Document 03/04/19 11:26 LRN (Rec: 03/04/19 12:14 LRN [id number]) Functional Tests Apley's Scratch Test Action 1- Left Behind shoulder Action 1- Right Behind the back Action 2- Left T1 Action 2- Right T4 Action 3- Left T10 Action 3- Right T12 PT-OP-J Posture/Palpation/Skin Start: 03/02/19 19:36 Freq: Status: Active Protocol: Document 03/04/19 11:26 LRN (Rec: 03/04/19 19:10 LRN [id number]) Posture Evaluation Position Standing Head/C-Spine Posture Side Bent Left T-Spine Posture Flattened L-Spine Posture Decreased Lordosis Shoulder Posture (L) Rounded,(R) Rounded,(L) Forward,(R) Forward,(L) Elevated Scapula Posture (L) Winged Knee Posture (L) Genu Valgus,(R) Genu Valgus Comments Posture Comments Dowagers Hump Palpation Assessment Location L shoulder Palpation Location UT, Rotator Cuff muscles Palpation Findings Soft Tissue Tightness,Muscle Guarding,Tenderness PT-OP-K Range of Motion Start: 03/02/19 19:36 Freq: Status: Active Protocol: Document 05/03/19 09:48 LRN (Rec: 05/03/19 10:38 LRN [id number]) Shoulder Goniometric Range of Motion Shoulder Left Passive Shoulder ROM WFL No Testing Position Supine Flexion 145 Abduction 90 External Rotation at 90 degrees 65 Abduction Internal Rotation 58 Right Passive Shoulder ROM WFL Yes Testing Position Supine Flexion 180 Abduction 180 External Rotation at 90 degrees 90 Abduction Internal Rotation 60 Right Active Shoulder ROM WFL Yes Testing Position Sitting Flexion 178 Abduction 178 Left Active Shoulder ROM WFL No Testing Position Sitting Flexion 140 Abduction 170 Shoulder ROM Limitations Comments L shoulder active AB is within scapular plane PT-OP-M Strength Start: 03/02/19 19:36 Freq: Status: Active Protocol: Document 05/03/19 09:48 LRN (Rec: 05/03/19 10:38 LRN [id number]) Shoulder Strength Shoulder Manual Muscle Testing Right Reason Not Measured WFL Comments Generally 5/5. Left Flexion 3+ Fair+ Extension 5 Normal Abduction (C5) 3- Fair- Adduction 5 Normal External Rotation 3+ Fair+ Internal Rotation 4- Good- Horizontal Abduction 5 Normal Horizontal Adduction 5 Normal PT-OP-Q Treatments Start: 03/02/19 19:36 Freq: Status: Active Protocol: Document 05/03/19 09:48 LRN (Rec: 05/03/19 10:38 LRN [id number]) Cardio Equipment Upper Body Ergometer (UBE) Duration (Minutes) 8 RPM 90 Height 5 Other fwd/bkwd Therapeutic Exercises Supine Exercises Shoulder AB Supine Exercise Name Shoulder AB PROM Side bilateral Comments PROM taken Shoulder IR/ER Supine Exercise Name Shoulder IR/ER stretch Comments PROM taken Shoulder Flex Supine Exercise Name Shoulder Flex PROM Side left Reps/Minutes 1' Comments Flex 145 deg's Sitting Exercises Shoulder AROM Sitting Exercise Name Active shoulder flex & AB after tyson PROM Side bilateral Comments ROM & MMT msmts taken Tyson Sitting Exercise Name Shoulder Flex & AB - PROM & AAROM Side left Equipment Used Overhead Tyson Reps/Minutes 3' Comments 10 holds Active shoulder ER/IR Sitting Exercise Name Active shoulder ER/IR Side bilateral Comments MMT taken PT-OP-T Assessment and Plan Start: 03/02/19 19:36 Freq: Status: Active Protocol: Document 05/03/19 09:48 LRN (Rec: 05/03/19 10:38 LRN [id number]) Physical Therapy Assessment Rehab Potential Rehabilitation Potential Good Evaluation Complexity Number of Personal Factors/Comorbidities 3 or More Number of Body Systems Impaired 4 or More Clinical Presentation at Evaluation Evolving Impairments Impairments Activity Tolerance,Functional Activities,Pain,ROM,Strength Goals Four Impairment Pt light duty at work. Wing Scorer Goal (LTG) Pt will be able to return to work at prior level of function. LTG Duration 07/15/19 (05/03/19: NOT MET.) Three Impairment Decreased L shoulder strength Short Term Goal (STG) Improve L shoulder strength to generally 3/5 with pt able to self toilet and reach light objects from grocery shelves with mild discomfort (pain no greater than 2/10). STG Duration 04/03/19 (04/15/19: MET GOAL) Wing Scorer Goal (LTG) Pt will be able to unload & put away 7-8 dishes with both hands and hang clothes in her closet with minimal discomfort (pain no greater than 1/10). (05/03/19: Can put 2-3 dishes up using both hands an can hang one at time with LUE). LTG Duration 07/15/19 (05/03/19: Can put 2- 3 dishes away) Two Impairment Decreased L shoulder AROM Short Term Goal (STG) Pt will be independent on L shoulder PROM & AROM stretch and strengthening ex's. STG Duration 03/18/19 (03/31/19: MET GOAL) Wing Scorer Goal (LTG) Improve L shoulder AROM/PROM with pt able to reach up to high shelves and able to lift arms high enough to dress with pain no greater than 1/10. ( 05/03/19: Pt has not tested ability) LTG Duration 07/15/19 (04/15/19: Progressing) One Impairment Lacks appropriate self care HEP. Alf Goal (LTG) Pt will be independent in a self care HEP. LTG Duration 07/15/19 (04/19/19: Progressing) Assessment Summary Assessment Pt demonstrates improved passive L shoulder ER and active AB (in scapular plane). Her L shoulder strength and function has mildly improved since her last visit while on a home program following her L ANASTASIYA surgery. The pt is highly motivated to improve her L shoulder function and mobility. Due to scheduling difficulties the pt will be seen for 1x/week until openings are available, if further therapy is approved. The pt will benefit from skilled physical therapy to improve L shoulder mobility and function for return to work at her prior level of function. Physical Therapy Plan Frequency and Duration Frequency of Treatment 2x/Week Plan of Care Start Date 05/03/19 Plan of Care End Date 07/15/19 Therapeutic Interventions Therapeutic Interventions Home Exercise Program,Manual Therapy,Patient/Caregiver Education,Self-Care/Home Management,Soft Tissue Mobilization,Therapeutic Exercises Modalities Cold Pack/Ice Massage,Hot Packs Next Visit Focus/Plan Next Note Type Treatment Note Next Visit Plan Warm up exercise with UBE or tyson. Focus on strengthening of L shoulder ( RC, Scap stab). Pt to focus on L shoulder PROM/AROM and strengthening at home with therapy 1-2x/week as pt is able to schedule and tolerate. Continue postural training with exercises. No ice to end because pt doesn't like cryotherapy.
--- NOTE | 2019-05-03 12:32 | PT.OPPOC ---
Physical, Occupational & Speech Therapy At [facility] Current Diagnoses Muscle weakness (generalized) (05/03/19) Other symptoms and signs involving the musculoskeletal system (05/03/19) Unspecified injury of muscle(s) and tendon(s) of the rotator cuff of left shoulder, initial encounter (05/03/19) Unspecified injury of muscle(s) and tendon(s) of the rotator cuff of unspecified shoulder, initial encounter (05/03/19) Visit Care Team Role Provider Type Candelaria Mehta PA-C Primary Care Provider Advanced Learning Consultant Specialty: Medical Address: [address] [place] [address], [address], [address] Email: [email or web address] BERNARDO Kramer Attending Provider Advanced Learning Consultant Specialty: EM Address: [address] [place] [address], [id number] Email: Plan Of Care PT-OP-T Assessment and Plan Start: 03/02/19 19:36 Freq: Status: Active Protocol: Document 05/03/19 09:48 LRN (Rec: 05/03/19 10:38 LRN [id number]) Physical Therapy Assessment Rehab Potential Rehabilitation Potential Good Evaluation Complexity Number of Personal Factors/Comorbidities 3 or More Number of Body Systems Impaired 4 or More Clinical Presentation at Evaluation Evolving Impairments Impairments Activity Tolerance,Functional Activities,Pain,ROM,Strength Goals Four Impairment Pt light duty at work. Half-Way Goal (LTG) Pt will be able to return to work at prior level of function. LTG Duration 07/15/19 (05/03/19: NOT MET.) Three Impairment Decreased L shoulder strength Short Term Goal (STG) Improve L shoulder strength to generally 3/5 with pt able to self toilet and reach light objects from grocery shelves with mild discomfort (pain no greater than 2/10). STG Duration 04/03/19 (04/15/19: MET GOAL) Half-Way Goal (LTG) Pt will be able to unload & put away 7-8 dishes with both hands and hang clothes in her closet with minimal discomfort (pain no greater than 1/10). (05/03/19: Can put 2-3 dishes up using both hands an can hang one at time with LUE). LTG Duration 07/15/19 (05/03/19: Can put 2- 3 dishes away) Two Impairment Decreased L shoulder AROM Short Term Goal (STG) Pt will be independent on L shoulder PROM & AROM stretch and strengthening ex's. STG Duration 03/18/19 (03/31/19: MET GOAL) Bearing Ring Assembler Goal (LTG) Improve L shoulder AROM/PROM with pt able to reach up to high shelves and able to lift arms high enough to dress with pain no greater than 1/10. ( 05/03/19: Pt has not tested ability) LTG Duration 07/15/19 (04/15/19: Progressing) One Impairment Lacks appropriate self care HEP. Half-Way Goal (LTG) Pt will be independent in a self care HEP. LTG Duration 07/15/19 (04/19/19: Progressing) Assessment Summary Assessment Pt demonstrates improved passive L shoulder ER and active AB (in scapular plane). Her L shoulder strength and function has mildly improved since her last visit while on a home program following her L ANASTASIYA surgery. The pt is highly motivated to improve her L shoulder function and mobility. Due to scheduling difficulties the pt will be seen for 1x/week until openings are available, if further therapy is approved. The pt will benefit from skilled physical therapy to improve L shoulder mobility and function for return to work at her prior level of function. Physical Therapy Plan Frequency and Duration Frequency of Treatment 2x/Week Plan of Care Start Date 05/03/19 Plan of Care End Date 07/15/19 Therapeutic Interventions Therapeutic Interventions Home Exercise Program,Manual Therapy,Patient/Caregiver Education,Self-Care/Home Management,Soft Tissue Mobilization,Therapeutic Exercises Modalities Cold Pack/Ice Massage,Hot Packs Next Visit Focus/Plan Next Note Type Treatment Note Next Visit Plan Warm up exercise with UBE or tyson. Focus on strengthening of L shoulder ( RC, Scap stab). Pt to focus on L shoulder PROM/AROM and strengthening at home with therapy 1-2x/week as pt is able to schedule and tolerate. Continue postural training with exercises. No ice to end because pt doesn't like cryotherapy. Plan of Care Dates Plan of Care Start Date 05/03/19 Plan of Care End Date 07/15/19 Electronically Signed by: Genia Bunn, PT 05/03/19 1232 Please Sign and Return: I have reviewed this Plan of Care and certify that the skilled therapy services above are required to meet the patient?s needs. Physician Signature Date Printed Name and Credentials Clinical Instructor Signature Printed Name and Credentials
--- NOTE | 2019-05-05 11:05 | PT-OP ANOTE ---
Pt came at wrong time, then later canceled. Per tele, pt stated cancel due to not feeling well
--- NOTE | 2019-05-10 16:15 | PT.OTN ---
Current Diagnoses Muscle weakness (generalized) (05/10/19) Other symptoms and signs involving the musculoskeletal system (05/10/19) Unspecified injury of muscle(s) and tendon(s) of the rotator cuff of left shoulder, initial encounter (05/10/19) Unspecified injury of muscle(s) and tendon(s) of the rotator cuff of unspecified shoulder, initial encounter (05/10/19) Physical Therapy Treatment Note PT-OP-A Visit Information Start: 03/02/19 19:36 Freq: Status: Active Protocol: Document 05/10/19 14:17 LRN (Rec: 05/10/19 15:05 LRN [id number]) Out-Patient Physical Therapy Visit Information Visit Information Visit Type Treatment Note Visit Note 03/04 Visit Start Time 14:17 Visit Stop Time 14:59 Total Visit Minutes 42 Visit Number 11 Evaluation Information Evaluation Date 03/04/19 Precautions Precautions LATEX ALLERGY OSTEOPOROSIS L shoulder replacement 04/06/12 R shoulder replacement 2014 R ankle replacement Chronic Back pain R TKA, R ANASTASIYA 02/06/2017 PT-OP-B Current Condition Start: 03/02/19 19:36 Freq: Status: Active Protocol: Document 05/03/19 09:48 LRN (Rec: 05/03/19 10:38 LRN [id number]) Current Condition History of Current Condition Onset Date 12/26/18 Current Complaints Pain in L shoulder 06/02 History of Current Condition Fell out of truck while at work. Held handle on R side, stepped down from truck the door jam yanked the L arm felt like it was torn from socket, she let go of holding strap and fell ~4ft to the ground landed on her L side. Pt receiving PT from 03/04/19 to 04/19/19, she underwent L posterior ANASTASIYA surgery 05/19/19. Today returning to complete her L shoulder rehab. Prior Treatments and Tests Next day urgent care did X-ray of shoulder and found nothing broken. Recently had MRI done but results unknown. Records review shows pt was been seen for pain management 02/28/19, indicating moderate to severe multilevel Degenerative changes of the lumbar spine. MRI was recommended concerning potential for osteomyelitis. Developmental History Developmental History Both shoulders replaced. Treatment Goals Patient/Caregiver Goals Pt goal is to regain function and mobility of L arm to prior level of function. Prior Functional Status Baseline Function- ADL's Independent Baseline Function- Mobility Independent Baseline Function- Other No limitations. Could lift a 8 dishes into cupboards. Current Functional Impairments (Reported) Functional Limitations- ADL's Able to lift 2-3 plates above shoulder height. 10% difficulty with ADLS ( dressing, toileting, getting groceries off top shelf, putting dishes away from top shelf, hanging clothes in closet is hard but can hang one item at a time). Functional Limitations- Mobility/Gait Using a cane on R side. Functional Limitations- Recreation/ Limited in sailboating. Hobbies Personal Factors Other Personal Factors That May Effect Recent L ANASTASIYA - 05/19/19. Therapy/Recovery Lives alone. Osteoarthritis, Multiple joint replacements ( Both shoulders have been replaced, L shoulder replacement 04/06/12; R shoulder replaced 10/23/2014. R ankle replacement, R TKA, R ANASTASIYA 02/06/2017). R thumb 2016 & L thumb 09/2015 surgery to remove 1 small bone of each hand. Osteoporsis, getting infusions, Bariatric surgery, Depression controlled w/ medications, chronic back pain , LATEX ALLERGY. On Oxycodone for 5 yrs. PT-OP-C Subjective Start: 03/02/19 19:36 Freq: Status: Active Protocol: Document 05/10/19 14:17 LRN (Rec: 05/10/19 15:05 LRN [id number]) OP-PT Subjective Patient Comments Patient Comments Asked if the [employer] vault manager contacted us, told pt no. States her arm is getting better. Able to hang up clothes (5) with L hand. Reports falling down stairs due to LOB, hurt back and was not able to move for a few days. PT-OP-E Functional Tests Start: 03/02/19 19:36 Freq: Status: Active Protocol: Document 03/04/19 11:26 LRN (Rec: 03/04/19 12:14 LRN [id number]) Functional Tests Jazmineey's Scratch Test Action 1- Left Behind shoulder Action 1- Right Behind the back Action 2- Left T1 Action 2- Right T4 Action 3- Left T10 Action 3- Right T12 PT-OP-J Posture/Palpation/Skin Start: 03/02/19 19:36 Freq: Status: Active Protocol: Document 03/04/19 11:26 LRN (Rec: 03/04/19 19:10 LRN [id number]) Posture Evaluation Position Standing Head/C-Spine Posture Side Bent Left T-Spine Posture Flattened L-Spine Posture Decreased Lordosis Shoulder Posture (L) Rounded,(R) Rounded,(L) Forward,(R) Forward,(L) Elevated Scapula Posture (L) Winged Knee Posture (L) Genu Valgus,(R) Genu Valgus Comments Posture Comments Dowagers Hump Palpation Assessment Location L shoulder Palpation Location UT, Rotator Cuff muscles Palpation Findings Soft Tissue Tightness,Muscle Guarding,Tenderness PT-OP-K Range of Motion Start: 03/02/19 19:36 Freq: Status: Active Protocol: Document 05/03/19 09:48 LRN (Rec: 05/03/19 10:38 LRN [id number]) Shoulder Goniometric Range of Motion Shoulder Left Passive Shoulder ROM WFL No Testing Position Supine Flexion 145 Abduction 90 External Rotation at 90 degrees 65 Abduction Internal Rotation 58 Right Passive Shoulder ROM WFL Yes Testing Position Supine Flexion 180 Abduction 180 External Rotation at 90 degrees 90 Abduction Internal Rotation 60 Right Active Shoulder ROM WFL Yes Testing Position Sitting Flexion 178 Abduction 178 Left Active Shoulder ROM WFL No Testing Position Sitting Flexion 140 Abduction 170 Shoulder ROM Limitations Comments L shoulder active AB is within scapular plane PT-OP-M Strength Start: 03/02/19 19:36 Freq: Status: Active Protocol: Document 05/03/19 09:48 LRN (Rec: 05/03/19 10:38 LRN [id number]) Shoulder Strength Shoulder Manual Muscle Testing Right Reason Not Measured WFL Comments Generally 5/5. Left Flexion 3+ Fair+ Extension 5 Normal Abduction (C5) 3- Fair- Adduction 5 Normal External Rotation 3+ Fair+ Internal Rotation 4- Good- Horizontal Abduction 5 Normal Horizontal Adduction 5 Normal PT-OP-Q Treatments Start: 03/02/19 19:36 Freq: Status: Active Protocol: Document 05/10/19 14:17 LRN (Rec: 05/10/19 15:05 LRN [id number]) Cardio Equipment Upper Body Ergometer (UBE) Duration (Minutes) 8 RPM 70 Height 5 Other fwd/bkwd Therapeutic Exercises Sitting Exercises Shoulder AROM Sitting Exercise Name Active shoulder flex & AB after tyson PROM Side bilateral Scapular Protraction Sitting Exercise Name Scapular protraction Side bilateral Equipment Used Lev 2 T-Band Reps/Minutes 15x 2 Alternate Arm lifts Sitting Exercise Name Alternate Arm Lifts in diagonal Side bilateral Equipment Used 1#, 2# Reps/Minutes 15x, 15x respectivley Tricep ext Sitting Exercise Name Tricep Ext Side bilateral Resistance 2# Reps/Minutes 10x Comments Assist to hold arms in max shldr flex Elbow Curls Sitting Exercise Name Elbow Curls Side bilateral Resistance 2#, 3#, Equipment Used Hand weight Reps/Minutes 15 x 2 Tyson Sitting Exercise Name Shoulder Flex & AB - PROM & AAROM Side left Equipment Used Overhead Tyson Reps/Minutes 5' Comments 10 holds Standing Exercises ER/IR Standing Exercise Name Reaching behind neck > reaching behnd back Reps/Minutes 15x Scapular depressin/retraction Standing Exercise Name Scapular depressin/retraction (lat pull down) Side bilateral Reps/Minutes 10x 2 Comments Extra time needed to train pt in proper movement. Scapular Retraction Standing Exercise Name Row Side bilateral Resistance Lev 2 T-Band Reps/Minutes 15 x 2 PT-OP-T Assessment and Plan Start: 03/02/19 19:36 Freq: Status: Active Protocol: Document 05/10/19 14:17 LRN (Rec: 05/10/19 15:05 LRN [id number]) Physical Therapy Assessment Goals Four Impairment Pt light duty at work. Correction Goal (LTG) Pt will be able to return to work at prior level of function. LTG Duration 07/15/19 (05/03/19: NOT MET.) Three Impairment Decreased L shoulder strength Short Term Goal (STG) Improve L shoulder strength to generally 3/5 with pt able to self toilet and reach light objects from grocery shelves with mild discomfort (pain no greater than 2/10). STG Duration 04/03/19 (04/15/19: MET GOAL) Correction Goal (LTG) Pt will be able to unload & put away 7-8 dishes with both hands and hang clothes in her closet with minimal discomfort (pain no greater than 1/10). (05/03/19: Can put 2-3 dishes up using both hands an can hang one at time with LUE). LTG Duration 07/15/19 (05/09/19: Can put 5 dishes away, pain 6/10 and weak) Two Impairment Decreased L shoulder AROM Short Term Goal (STG) Pt will be independent on L shoulder PROM & AROM stretch and strengthening ex's. STG Duration 03/18/19 (03/31/19: MET GOAL) District Wire Chief Goal (LTG) Improve L shoulder AROM/PROM with pt able to reach up to high shelves and able to lift arms high enough to dress with pain no greater than 1/10. ( 05/03/19: Pt able to do with pain 3/10) LTG Duration 07/15/19 (05/10/19: Reaches 2nd to highest) One Impairment Lacks appropriate self care HEP. District Wire Chief Goal (LTG) Pt will be independent in a self care HEP. LTG Duration 07/15/19 (04/19/19: Progressing) Assessment Summary Assessment Good tolerance to strengthening. Pt is improving in strength & function. She can now lift more plates into her cabinet and can lift arms high enough for dressing, but she is limited in strength; therefore is experiencing pain with the functional activities. Physical Therapy Plan Frequency and Duration Frequency of Treatment 2x/Week Plan of Care Start Date 05/03/19 Plan of Care End Date 07/15/19 Next Visit Focus/Plan Next Note Type Treatment Note Next Visit Plan Reassess due to last visit, unless further authorization obtained. Warm up exercise with UBE or tyson. Reassess. If further therapy approved, focus on strengthening of L shoulder (RC, Scap stab). Pt to focus on L shoulder PROM/ AROM and strengthening at home with therapy 1x/week this week due to schedule full at time of scheduling. Continue postural training with exercises. No ice to end because pt doesn't like cryotherapy.
--- NOTE | 2019-06-27 14:19 | PT-OP ANOTE ---
Per telephone conversation the pt states she is not sure if L&I dropped her. She would like to continue therapy because her shoulder is not strong, and she did have a fall landing on concrete on her new ANASTASIYA; therefore she was set back physically. The pt will try contacting [facility] and will notify PT Dept next week regarding continuation of therapy.
--- NOTE | 2019-11-10 16:55 | PT.OPDS ---
Current Diagnoses Muscle weakness (generalized) (05/10/19) Other symptoms and signs involving the musculoskeletal system (05/10/19) Unspecified injury of muscle(s) and tendon(s) of the rotator cuff of left shoulder, initial encounter (05/10/19) Unspecified injury of muscle(s) and tendon(s) of the rotator cuff of unspecified shoulder, initial encounter (05/10/19) Visit Care Team Role Provider Type Candelaria Mehta PA-C Primary Care Provider Advanced Cable Assembler Specialty: Medical Address: [address] [place] [address], [id number] Email: BERNARDO Kramer Attending Provider [employer] Cable Assembler Specialty: EM Address: [address] [place] [address], [id number] Email: Visit Number Visit Number 11 Discharge Summary PT-OP-B Current Condition Start: 03/02/19 19:36 Freq: Status: Active Protocol: Document 05/03/19 09:48 LRN (Rec: 05/03/19 10:38 LRN [id number]) Current Condition History of Current Condition Onset Date 12/26/18 Current Complaints Pain in L shoulder 06/02 History of Current Condition Fell out of truck while at work. Held handle on R side, stepped down from truck the door jam yanked the L arm felt like it was torn from socket, she let go of holding strap and fell ~4ft to the ground landed on her L side. Pt receiving PT from 03/04/19 to 04/19/19, she underwent L posterior ANASTASIYA surgery 05/19/19. Today returning to complete her L shoulder rehab. Prior Treatments and Tests Next day urgent care did X-ray of shoulder and found nothing broken. Recently had MRI done but results unknown. Records review shows pt was been seen for pain management 02/28/19, indicating moderate to severe multilevel Degenerative changes of the lumbar spine. MRI was recommended concerning potential for osteomyelitis. Developmental History Developmental History Both shoulders replaced. Treatment Goals Patient/Caregiver Goals Pt goal is to regain function and mobility of L arm to prior level of function. Prior Functional Status Baseline Function- ADL's Independent Baseline Function- Mobility Independent Baseline Function- Other No limitations. Could lift a 8 dishes into cupboards. Current Functional Impairments (Reported) Functional Limitations- ADL's Able to lift 2-3 plates above shoulder height. 10% difficulty with ADLS ( dressing, toileting, getting groceries off top shelf, putting dishes away from top shelf, hanging clothes in closet is hard but can hang one item at a time). Functional Limitations- Mobility/Gait Using a cane on R side. Functional Limitations- Recreation/ Limited in sailboating. Hobbies Personal Factors Other Personal Factors That May Effect Recent L ANASTASIYA - 05/19/19. Therapy/Recovery Lives alone. Osteoarthritis, Multiple joint replacements ( Both shoulders have been replaced, L shoulder replacement 04/06/12; R shoulder replaced 10/23/2014. R ankle replacement, R TKA, R ANASTASIYA 02/06/2017). R thumb 2016 & L thumb 09/2015 surgery to remove 1 small bone of each hand. Osteoporsis, getting infusions, Bariatric surgery, Depression controlled w/ medications, chronic back pain , LATEX ALLERGY. On Oxycodone for 5 yrs. PT-OP-C Subjective Start: 03/02/19 19:36 Freq: Status: Active Protocol: Document 05/10/19 14:17 LRN (Rec: 05/10/19 15:05 LRN [id number]) OP-PT Subjective Patient Comments Patient Comments Asked if the [employer] territory sales manager contacted us, told pt no. States her arm is getting better. Able to hang up clothes (5) with L hand. Reports falling down stairs due to LOB, hurt back and was not able to move for a few days. PT-OP-E Functional Tests Start: 03/02/19 19:36 Freq: Status: Active Protocol: Document 03/04/19 11:26 LRN (Rec: 03/04/19 12:14 LRN [id number]) Functional Tests Jazmineey's Scratch Test Action 1- Left Behind shoulder Action 1- Right Behind the back Action 2- Left T1 Action 2- Right T4 Action 3- Left T10 Action 3- Right T12 PT-OP-J Posture/Palpation/Skin Start: 03/02/19 19:36 Freq: Status: Active Protocol: Document 03/04/19 11:26 LRN (Rec: 03/04/19 19:10 LRN [id number]) Posture Evaluation Position Standing Head/C-Spine Posture Side Bent Left T-Spine Posture Flattened L-Spine Posture Decreased Lordosis Shoulder Posture (L) Rounded,(R) Rounded,(L) Forward,(R) Forward,(L) Elevated Scapula Posture (L) Winged Knee Posture (L) Genu Valgus,(R) Genu Valgus Comments Posture Comments Dowagers Hump Palpation Assessment Location L shoulder Palpation Location UT, Rotator Cuff muscles Palpation Findings Soft Tissue Tightness,Muscle Guarding,Tenderness PT-OP-K Range of Motion Start: 03/02/19 19:36 Freq: Status: Active Protocol: Document 05/03/19 09:48 LRN (Rec: 05/03/19 10:38 LRN [id number]) Shoulder Goniometric Range of Motion Shoulder Left Passive Shoulder ROM WFL No Testing Position Supine Flexion 145 Abduction 90 External Rotation at 90 degrees 65 Abduction Internal Rotation 58 Right Passive Shoulder ROM WFL Yes Testing Position Supine Flexion 180 Abduction 180 External Rotation at 90 degrees 90 Abduction Internal Rotation 60 Right Active Shoulder ROM WFL Yes Testing Position Sitting Flexion 178 Abduction 178 Left Active Shoulder ROM WFL No Testing Position Sitting Flexion 140 Abduction 170 Shoulder ROM Limitations Comments L shoulder active AB is within scapular plane PT-OP-M Strength Start: 03/02/19 19:36 Freq: Status: Active Protocol: Document 05/03/19 09:48 LRN (Rec: 05/03/19 10:38 LRN [id number]) Shoulder Strength Shoulder Manual Muscle Testing Right Reason Not Measured WFL Comments Generally 5/5. Left Flexion 3+ Fair+ Extension 5 Normal Abduction (C5) 3- Fair- Adduction 5 Normal External Rotation 3+ Fair+ Internal Rotation 4- Good- Horizontal Abduction 5 Normal Horizontal Adduction 5 Normal PT-OP-T Assessment and Plan Start: 03/02/19 19:36 Freq: Status: Active Protocol: Document 11/10/19 16:46 LRN (Rec: 11/10/19 16:52 LRN [id number]) Physical Therapy Assessment Goals Four Impairment Pt light duty at work. Skilled Nursing Goal (LTG) Pt will be able to return to work at prior level of function. LTG Duration 07/15/19 (05/03/19: NOT MET.) Three Impairment Decreased L shoulder strength Short Term Goal (STG) Improve L shoulder strength to generally 3/5 with pt able to self toilet and reach light objects from grocery shelves with mild discomfort (pain no greater than 2/10). STG Duration 04/03/19 (04/15/19: MET GOAL) Executive Business Coach Goal (LTG) Pt will be able to unload & put away 7-8 dishes with both hands and hang clothes in her closet with minimal discomfort (pain no greater than 1/10). (05/03/19: Can put 2-3 dishes up using both hands an can hang one at time with LUE). LTG Duration 07/15/19 (05/09/19: Can put 5 dishes away, pain 6/10 and weak) Two Impairment Decreased L shoulder AROM Short Term Goal (STG) Pt will be independent on L shoulder PROM & AROM stretch and strengthening ex's. STG Duration 03/18/19 (03/31/19: MET GOAL) Skilled Nursing Goal (LTG) Improve L shoulder AROM/PROM with pt able to reach up to high shelves and able to lift arms high enough to dress with pain no greater than 1/10. ( 05/03/19: Pt able to do with pain 3/10) LTG Duration 07/15/19 (05/10/19: Reaches 2nd to highest) One Impairment Lacks appropriate self care HEP. Skilled Nursing Goal (LTG) Pt will be independent in a self care HEP. LTG Duration 07/15/19 (04/19/19: Progressing) Assessment Summary Assessment Pt was last seen 05/10/19, prior to COVID 19 pandemic. The pt was contacted to schedule, but did not call back 30+ days after the clinic opened. The pt will need a new referral to return to therapy at this time; therefore she will be discharged from therapy. The pt was unavailable for final assessment. Physical Therapy Plan Discharge Physical Therapy Discharge Reasons No Longer Attending PT Discharge Comments Pt did not return after re- opening the clinic following the COVID 19 Pandemic; therefore pt is being discharged from therapy.
== END 2019-11-11 14:11 ==
LOC: PHYS 14:15
PROVIDERS: PCP Physician Assistant; Visit Provider Nurse Practitioner
DX: S46.002A Unspecified injury of muscle(s) and tendon(s) of the rotator cuff of left shoulder, initial encounter (principal); S46.009A Unspecified injury of muscle(s) and tendon(s) of the rotator cuff of unspecified shoulder, initial encounter; M62.81 Muscle weakness (generalized); R29.898 Other symptoms and signs involving the musculoskeletal system
CPT/HCPCS: 97110; 97140; 97162; 97535

== ENCOUNTER → 2019-05-13 10:09 | Outpatient (CLI) | payer OTHER, SELFPAY ==
[2019-04-20 13:15] VITALS: BMI 26.8
[2019-05-13 11:19] LABS: Hematocrit 33.2 % (36-46); Hemoglobin 10.9 g/dL (12.0-16.0)
[2019-05-13 11:21] LABS: Alanine Aminotransferase 14 IU/L (<35); Albumin 3.6 g/dL (3.5-5.0); Albumin Globulin Ratio 1.3 (1.0-2.8); Alkaline Phosphatase 74 U/L (38-126); Aspartate Aminotransferase 25 IU/L (14-36); BUN Creatinine Ratio 15.6 (6-22); Bilirubin Total 0.3 mg/dL (0.2-1.3); Blood Urea Nitrogen 12 mg/dL (7-17); Calcium 9.2 mg/dL (8.4-10.2); Carbon Dioxide 26 mmol/L (22-32); Chloride 108 mmol/L (98-107); Cholesterol 181 mg/dL (140-199); Estimated Glomerular Filt Rate > 60.0 mL/min (>60); Globulin 2.8 g/dL (1.7-4.1); Glucose 85 mg/dL (80-110); HDL Cholesterol 68 mg/dL (40-60); HEMOLYSIS < 15 (0-50); LDL Cholesterol Calculated 90 mg/dL (<100); Potassium 3.6 mmol/L (3.4-5.1); Sodium 141 mmol/L (137-145); Total Protein 6.4 g/dL (6.3-8.2); Triglycerides 116 mg/dL (35-150)
[2019-05-13 11:28] LABS: Prealbumin 22.2 mg/dL (17.6-36.0)
[2019-05-13 11:55] LABS: Ferritin 20 ng/mL (11-264)
[2019-05-13 12:19] LABS: HEMOLYSIS < 15 (0-50); Iron 32 ug/dL (37-170)
[2019-05-13 12:29] LABS: Percent Iron Saturation 9 % (15-50); Total Iron Binding Capacity 347 ug/dL (265-497); Transferrin 289 mg/dL (206-381)
== END ==
LOC: LAB 10:10
PROVIDERS: Family Provider Physician Assistant; PCP Student in an Organized Health Care Education/Training Program; Referring Provider Student in an Organized Health Care Education/Training Program; Visit Provider Student in an Organized Health Care Education/Training Program
DX: Z13.220 Encounter for screening for lipoid disorders (principal); D50.9 Iron deficiency anemia, unspecified; E46 Unspecified protein-calorie malnutrition; E55.9 Vitamin D deficiency, unspecified; Z79.899 Other long term (current) drug therapy; Z98.84 Bariatric surgery status
CPT/HCPCS: 36415; 80053; 80061; 82306; 82728; 83540; 83550; 84134; 85014; 85018; 85045

== ENCOUNTER → 2019-06-10 12:03 | Outpatient (CLI) | payer OTHER, SELFPAY ==
[2019-04-20 13:15] VITALS: BMI 26.8
[2019-06-10 13:34] LABS: Hematocrit 34.5 % (36-46); Hemoglobin 11.3 g/dL (12.0-16.0); Mean Corpuscular HGB Conc 32.7 % (30-36); Mean Corpuscular Hemoglobin 27.4 PG (26-34); Mean Corpuscular Volume 83.7 fL (80-100); Platelet Count 312 X10^3/uL (150-400); Red Blood Cell Count 4.12 X10^6/uL (4.0-5.2); Red Cell Distribution Width 14.4 % (11.6-14.8); White Blood Cell Count 6.7 X10^3/uL (4.5-11.0)
[2019-06-10 13:51] LABS: Reticulocyte Count, Percent 0.5 % (1.06-2.63)
[2019-06-10 14:45] LABS: HEMOLYSIS < 15 (0-50); Iron 27 ug/dL (37-170)
[2019-06-10 14:55] LABS: Percent Iron Saturation 7 % (15-50); Total Iron Binding Capacity 392 ug/dL (265-497); Transferrin 326 mg/dL (206-381)
[2019-06-10 15:21] LABS: Ferritin 12 ng/mL (11-264)
[2019-06-10 16:02] LABS: Vitamin D 25 Hydroxy (D3) 25.6 ng/mL (30.0-100.0)
== END ==
PROVIDERS: Family Provider Physician Assistant; PCP Student in an Organized Health Care Education/Training Program; Referring Provider Student in an Organized Health Care Education/Training Program; Visit Provider Student in an Organized Health Care Education/Training Program
DX: D50.9 Iron deficiency anemia, unspecified (principal); E55.9 Vitamin D deficiency, unspecified
CPT/HCPCS: 36415; 82306; 82728; 83540; 83550; 85027; 85045

== ENCOUNTER → 2019-08-09 09:59 | Oncology outpatient (ONC) | payer OTHER, SELFPAY ==
[2019-04-20 13:15] VITALS: BMI 26.8
[2019-08-09 10:55] VITALS: BP 135/78; PULSE 66; RESP 18; TEMP 37; O2SAT 100
[2019-08-09] MEDS: IRON SUCROSE 200 MG in SODIUM CHLORIDE 0.9% 100 ML 440 ML IV (10:59)
== END ==
LOC: ONC 10:02
PROVIDERS: Family Provider Physician Assistant; PCP Student in an Organized Health Care Education/Training Program; Referring Provider Student in an Organized Health Care Education/Training Program; Visit Provider Student in an Organized Health Care Education/Training Program
DX: D50.9 Iron deficiency anemia, unspecified (principal)
CPT/HCPCS: 96365; J1756

== ENCOUNTER → 2019-10-03 13:46 | Outpatient (CLI) | payer OTHER, SELFPAY ==
[2019-09-08 11:03] VITALS: BMI 26.8
[2019-10-04 07:43] LABS: COVID19 Sendout Not Detected (Not Detect)
== END ==
PROVIDERS: Family Provider Physician Assistant; PCP Student in an Organized Health Care Education/Training Program; Visit Provider Physician Assistant
DX: Z11.59 Encounter for screening for other viral diseases (principal)
CPT/HCPCS: 87635

== ENCOUNTER 2019-10-06 13:52 | Outpatient (CLI) | payer OTHER, SELFPAY ==
[2019-09-08 11:03] VITALS: BMI 26.8
[2019-10-06] VITALS (7 sets, daily range): BP systolic 121–154; BP diastolic 70–89; PULSE 64–79; RESP 13–16; TEMP 36.2; O2SAT 98–100
--- NOTE | 2019-10-06 13:53 | DI.RAD.S_ITS ---
PROCEDURE: PAIN L/S FACET INJ/BLK 1ST POLO COMPARISON: None. INDICATIONS: SPONDYLOSIS FINDINGS: 6 intraoperative fluoroscopy images demonstrate needle placement at L3, L4, and L5 bilaterally. IMPRESSION: Fluoroscopy guidance for needle placement. Dictated by: Holden Larry M.D. on 10/06/2019 at 16:17 Approved by: Holden Larry M.D. on 10/06/2019 at 16:17
--- NOTE | 2019-10-06 14:22 | PC.NURSE ---
Elizabeth is A&O able to make needs known. rates her lower back pain 08/02. Green pain log and post injection instructions reviewed. Has no questions or concerns.
[2019-10-06] MEDS: MIDAZOLAM 5 MG/5 ML VIAL IV (14:53)
[2019-10-06] MEDS: fentaNYL 100 MCG/2 ML INJ 50 MCG IV (14:54)
[2019-10-06] MEDS: LIDOCAINE 1% 20 ML 10 ML INJ (15:00)
[2019-10-06] MEDS: IOPAMIDOL 15 ML VIAL 3 ML INJ (15:00)
[2019-10-06] MEDS: BUPIVACAINE 0.5% (PF) VIAL 5 ML INJ (15:00)
--- NOTE | 2019-10-06 15:06 | PM.PROC.IR.1 ---
Date/Time/Diagnoses Date of procedure: 10/06/19 Time of procedure: 15:06 Pre-procedure diagnosis: 1. FACET ARTHROPATHY Post-procedure diagnosis: same Procedure Notes Procedure: 1. BILATERAL L3, L4 AND L5 DIAGNOSTIC MB BLOCKS Indications: Elizabeth is referred by for treatment of Bilateral Axial LBP. Physician: Sunday Strauss Total Fluoroscopy time (seconds): 13 Total sedation minutes: 13 Complications: none Procedure in detail & Post-procedure care: DESCRIPTION OF PROCEDURE Fluoroscopically guided, contrast-controlled bilateral L3, L4 AND L5 medial branch blocks with 0.5cc of 0.5% Marcaine. Following review of allergy and review of potential side effects and complications, including, but not necessarily limited to, infection, allergic reaction, local tissue breakdown, nerve injury, paralysis, stroke and possible , the patient indicated that the patient understood and agreed to proceed. An informed consent document was signed by the patient, witnessed by a nurse, and placed in the patient's chart. After review of previous anaesthesic history and IV conscious sedation the patient was deemed safe to proceed with today's procedure with IV conscious sedation as ASA class II designation. Safety time-out was performed to confirm patient ID, procedure to be performed and site of procedure. IV sedation was accomplished with a combination of 4mg of Versed and 50mcg of Fentantyl was administered by the RN after DO order, titrated to patient comfort during the course of the procedure while the patient remained responsive to all verbal commands In the prone position, following sterile prep and drape of the lumbar region, the right L3, L4 AND L5 anatomical location of the medial branch of the dorsal ramus was identified fluoroscopically. Subsequently an anesthetic skin wheal using 1% lidocaine solution was initiated at each of the anatomical spots. Subsequently then a 22-gauge 3.5-inch spinal needle was atraumatically introduced and advanced under fluoroscopic guidance at each of the corresponding sites at the right L3, L4 and L5 MB. After negative aspiration, 0.2cc of Isovue 200 was injected, confirming placement without vascular or intrathecal uptake. Subsequently then 0.5cc of 0.5% Marcaine solution was injected at each of the corresponding sites at the right L3, L4 and L5 medial branch locations. The identical procedure was replicated on the left. The patient tolerated the procedure well without signs or symptoms of complications. The patient tolerated the procedure well without signs or symptoms of complications prior to transfer to the recovery area continued monitoring without incident. Post-procedure, the patient was monitored initiating provocative activities to measure the amount of relief from block of the facetogenic pain. The patient reported a VAS of 7 prior to the procedure and a post-procedure VAS of 1. It has been a pleasure to assist in the diagnostic and therapeutic care of your patient. POST OP INSTRUCTIONS The patient was provided with a Pain Log to complete over the next several hours and subsequent days prior to the patient's follow up with the ordering physician. If the patient has continuous improvement coach relief to the solution applied, then they may be a candidate for medial branch rhizotomy. The patient is aware, was provided, once again, with a Pain Log and will follow up with the referring physician for review and clinical correlation
--- NOTE | 2019-10-06 15:58 | PC.NURSE ---
Fentanyl and versed given by this RN all other medications scanned given by Dr Strauss. Patient was stable and care transferred to Jared REYES
== END 2019-10-06 15:41 | disposition home or self-care (01) ==
LOC: RAD 13:53
PROVIDERS: Family Provider Physician Assistant; PCP Student in an Organized Health Care Education/Training Program; Referring Provider Student in an Organized Health Care Education/Training Program; Visit Provider Physical Medicine & Rehabilitation
DX: M47.816 Spondylosis without myelopathy or radiculopathy, lumbar region (principal); M54.5 Low back pain
CPT/HCPCS: 64493; 64494; 99152; J2250; J3010

== ENCOUNTER → 2019-11-17 09:49 | Outpatient (CLI) | payer OTHER, SELFPAY ==
[2019-09-08 11:03] VITALS: BMI 26.8
--- NOTE | 2019-11-17 09:52 | DI.RAD.S_ITS ---
PROCEDURE: XR KNEE LT 3V INDICATIONS: Knee pain TECHNIQUE: 3 views of the knee were acquired. COMPARISON: [facility], CR, XR KNEE LT 3V, 01/12/2019, 13:19. FINDINGS: Bones: No fractures or dislocations. No suspicious bony lesions. Severe tricompartmental osteoarthritis. Soft tissues: No joint effusion. Multiple large ossifications noted anterior to the distal femur and superior to the patella concerning for large ossified intra-articular loose bodies. IMPRESSION: 1. Severe tricompartmental osteoarthritis. 2. Possible large ossified intra-articular loose bodies. Recommend MRI of the left knee if clinically indicated. Dictated by: Ember Sheppard MD, PhD on 11/17/2019 at 17:17 Approved by: Ember Sheppard MD, PhD on 11/17/2019 at 17:25
== END ==
PROVIDERS: Family Provider Student in an Organized Health Care Education/Training Program; PCP Student in an Organized Health Care Education/Training Program; Referring Provider Student in an Organized Health Care Education/Training Program; Visit Provider Student in an Organized Health Care Education/Training Program
DX: M25.562 Pain in left knee (principal); M17.12 Unilateral primary osteoarthritis, left knee
CPT/HCPCS: 73562

== ENCOUNTER → 2020-02-10 11:11 | Outpatient (CLI) | payer OTHER, SELFPAY ==
[2020-02-01 14:51] VITALS: BMI 26.8
[2020-02-10 12:03] LABS: Add Manual Diff / Slide Review NO; Basophils Absolute Auto 0 /uL (0-100); Basophils Percent Auto 0.8 % (0-2); Eosinophils Absolute Auto 200 /uL (0-450); Eosinophils Percent Auto 3.8 % (2-4); Hematocrit 35.9 % (36-46); Hemoglobin 11.3 g/dL (12.0-16.0); Lymphocytes Absolute Auto 1500 /uL (1100-4500); Lymphocytes Percent Auto 26.1 % (25-40); Mean Corpuscular HGB Conc 31.6 % (30-36); Mean Corpuscular Hemoglobin 26.1 PG (26-34); Mean Corpuscular Volume 82.5 fL (80-100); Monocytes Absolute Auto 400 /uL (0-900); Monocytes Percent Auto 7.8 % (3-14); Neutrophils Absolute Auto 3500 /uL (1500-7000); Neutrophils Percent Auto 61.5 % (50-75); Platelet Count 318 X10^3/uL (150-400); Red Blood Cell Count 4.35 X10^6/uL (4.0-5.2); Red Cell Distribution Width 14.7 % (11.6-14.8); White Blood Cell Count 5.7 X10^3/uL (4.5-11.0)
[2020-02-10 12:10] LABS: Hemoglobin A1C% w Est Avg Glu 5.3 % (4.0-6.0)
[2020-02-10 12:31] LABS: BUN Creatinine Ratio 21.5 (6-22); Blood Urea Nitrogen 17 mg/dL (7-17); Carbon Dioxide 29 mmol/L (22-32); Chloride 109 mmol/L (98-107); Estimated Glomerular Filt Rate > 60.0 mL/min (>60); Glucose 77 mg/dL (80-110); HEMOLYSIS < 15 (0-50); Potassium 4.4 mmol/L (3.4-5.1); Sodium 140 mmol/L (137-145)
== END ==
PROVIDERS: Family Provider Student in an Organized Health Care Education/Training Program; PCP Student in an Organized Health Care Education/Training Program; Referring Provider Orthopaedic Surgery; Visit Provider Orthopaedic Surgery
DX: Z01.818 Encounter for other preprocedural examination (principal); R73.9 Hyperglycemia, unspecified; Z01.812 Encounter for preprocedural laboratory examination
CPT/HCPCS: 36415; 80048; 83036; 85025; 93005; 93010

== ENCOUNTER 2020-02-22 09:00 | Outpatient (RCR) | payer OTHER, SELFPAY ==
[2019-09-08 11:03] VITALS: BMI 26.8
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
== END 2020-03-02 13:23 ==
LOC: PHYS 09:00
PROVIDERS: Family Provider Student in an Organized Health Care Education/Training Program; PCP Student in an Organized Health Care Education/Training Program; Referring Provider Student in an Organized Health Care Education/Training Program; Visit Provider Student in an Organized Health Care Education/Training Program
DX: F07.81 Postconcussional syndrome (principal); M54.2 Cervicalgia
CPT/HCPCS: 97110; 97162; 97535

== ENCOUNTER → 2020-03-03 14:48 | Outpatient (CLI) | payer OTHER, SELFPAY ==
[2020-02-01 14:51] VITALS: BMI 26.8
[2020-03-03 15:41] LABS: COVID19 -Nasal RAPID Negative (Negative)
== END ==
PROVIDERS: Family Provider Student in an Organized Health Care Education/Training Program; PCP Physician Assistant; Visit Provider Nurse Practitioner
DX: Z20.822 Contact with and (suspected) exposure to COVID-19 (principal)
CPT/HCPCS: 87635

== ENCOUNTER 2020-03-05 08:06 | Day surgery (SDC) | payer OTHER, SELFPAY ==
[2020-02-01 14:51] VITALS: BMI 26.8
[2020-02-28 09:46] VITALS: BMI 25.5
[2020-03-05] VITALS (14 sets, daily range): BP systolic 106–148; BP diastolic 58–87; PULSE 58–91; RESP 13–18; TEMP 35.8–37.1; O2SAT 96–99; BMI 24.9
--- NOTE | 2020-03-05 06:00 | DI.RAD.S_ITS ---
PROCEDURE: XR KNEE LT 1TO2V INDICATIONS: post op TKA TECHNIQUE: 2 view(s) of the knee acquired. COMPARISON: [facility], CR, XR KNEE LT 3V, 11/17/2019, 9:48. FINDINGS: Bones: Patient is status post knee joint arthroplasty. Hardware components are in expected positions. Visualized bony structures are intact. Soft tissues: Overlying postoperative changes are noted. IMPRESSION: Postsurgical arthroplasty changes as above. Dictated by: Carlita Mann M.D. on 03/05/2020 at 16:35 Approved by: Carlita Mann M.D. on 03/05/2020 at 16:35
[2020-03-05] MEDS: PREGABALIN 75 MG CAPSULE PO (08:45)
[2020-03-05] MEDS: CELECOXIB 200 MG CAPSULE PO (08:45)
[2020-03-05] MEDS: ACETAMINOPHEN 325 MG TABLET 975 MG PO (08:45)
[2020-03-05] MEDS: LACTATED RINGERS 1,000 ML 42 ML IV (09:16)
--- NOTE | 2020-03-05 09:35 | PM.PREOP ---
Pre-operative Note COVID-19 COVID-19 status: Negative Result date/Date tested (Pos, Neg/Pending): 03/03/20 Interval Note History & Physical reviewed/Exam performed by Physician: Yes Changes to H&P: Yes H&P completed within 30 days and has changed as indicated here:: Patient reports a panic attack with some chest pain Thursday morning. She will be evaluated by Anesthesia this morning to determine whether we can proceed with surgery.
[2020-03-05] MEDS: CEFAZOLIN 2 GM/100 ML FROZ.PIGGY IV (10:37)
--- NOTE | 2020-03-05 10:58 | SUR.OPER ---
Supine on padded OR bed. Pillow under head, arms secured on padded armboards <90 degree abduction. Safety belt across torso. Non-operative leg secured with tape over blanket over lower leg. Operative leg secured in DeMayo/[place]on positioner.
[2020-03-05] MEDS: BUPIVACAINE LIPOSOME 266 MG/20 ML VIAL INJ (11:47)
[2020-03-05] MEDS: TRANEXAMIC ACID 1,000 MG VIAL 2000 MG INJ (11:48)
[2020-03-05] MEDS: MORPHINE 4 MG/ML INJ INJ (11:48)
[2020-03-05] MEDS: BUPIVACAINE 0.25% W/ EPI (PF) 10 ML VIAL 40 ML INJ (11:51)
--- NOTE | 2020-03-05 12:20 | P.OP_ITS ---
Operative Date/Time/Diagnoses Date of procedure: 03/05/20 Time of procedure: 12:20 Pre-op diagnosis: Left knee osteoarthritis with loose bodies Post-op diagnosis: same Procedure & Clinicians Procedure: Left total knee replacement Same procedure as scheduled: Yes Indications: The patient has had progressively worsening left knee pain with rad iographic changes consistent with arthritis. Non-operative management has failed and the patient has requested total knee replacement. The risks, benefits and alternatives to surgery were discussed with the patient prior to proceeding. Risks discussed included, but were not limited to, failure to relieve pain, stiffness, infection, nerve damage, deep venous thrombosis, pulmonary embolism, stroke, coma, heart attack, permanent paralysis and , as well as the potential need for eventual revision of the prosthetic. Surgeon: Arley Ruiz Head Of Training And Development: Echo Chaparro Click Yes if Unassisted: No Anesthesia Type: Spinal and Local Operative Notes Findings: Severe tricompartmental osteoarthritis, worst in the lateral compartment with valgus deformity and multiple very large loose bodies. Closure Type: primary Specimen(s): none sent Prosthetic devices, grafts, tissues, transplants, or devices: Implants used in this procedure were manufactured by the [employer] and included the BCS II Journey total knee replacement with a size 4 left Oxinium femoral component, a size 4 left non porous tibial base plate, a 9 mm cross- linked polyethylene tibial insert and a 32 mm oval Stephanie II patellar component. Applied: implant(s) Estimated Blood Loss (mL): 25 Blood products transfused: none Tourniquet time (min): 52 Procedure in detail: The patient was seen in the pre-operative area, where the left knee was identified as the operative site and this was marked with my initials. The patient received pre-operative antibiotics, and was taken to the operating room and placed on the operative table in the supine position. After satisfactory anesthesia, a parking enforcement technician out was performed. The left leg was encircled with a tourniquet about the proximal thigh, and the leg was prepared from the toes to the tourniquet with ChloroPrep in the usual fashion and draped through sterile drapes. The leg was elevated and exsanguinated with Eschmark bandage and the tourniquet inflated to 250 mmHg pressure. The knee was approached through an approximately 18 cm incision centered over the patella and carried into the knee through a medial parapatellar arthrotomy. The anterior osteophytes and soft tissues were removed. The rotational landmarks of [place]'s line and the transepicondylar axis were marked on the femur with electrocautery, and intramedullary guide holes for the femur and tibia were created. The distal femoral cut was made in 6 degrees of valgus using the intramedullary guide at the primary cut setting. The proximal tibial cut was then made using the intramedullary guide, taking 7 mm of bone off the less involved medial side. The extension gap was checked and the rotation of the femoral component confirmed with the gap balancing blocks. The anterior, post erior and chamfer cuts were then made. The posterior osteophytes and soft tissues were then removed. The posterior capsule was injected with part of a mixture of 40 ml 0.25% Marcaine mixed with 20 ml Exparel and 4 mg of morphine for post-operative pain control. The remainder of this mixture was injected into the capsule and subcutaneous tissues during cement curing. The tibia was prepared with the rotation set by an extra medullary guide. Trial tibial and femoral components were then placed and the intercondylar notch cut through the femoral trial. Range of motion was 0-135 degrees, with good stability throughout the range. The patella was then cut to accommodate the patellar prosthetic. There was no need for a lateral release. The trials were then removed, and the femoral hole plugged with a bone plug. The bone was prepared with pulsatile lavage, and dried with a sponge. Cement was applied and the final prosthetics placed. Excess cement was removed during and after cement curing. After confirming there was no extruded cement posteriorly, the final tibial insert was placed. The knee was copiously irrigated and the tourniquet deflated. Hemostasis was obtained. The capsule was closed with interrupted # 2 polyester sutures. The subcutaneous layer was closed with 3-0 Vicryl, and the skin with a running 3-0 V-Lock suture and SteriStrips. An Aquacel Ag dressing was applied and the patient was taken to recovery having tolerated the procedure well. Complications: none Post-operative Condition: stable Disposition: PACU Plan for aftercare: The patient will be maintained on a standard total knee replacement protocol with weight bearing as tolerated. The patient will receive aspirin and sequential compression devices for DVT prophylaxis. The patient will be discharged home when safe for the home environment.
[2020-03-05] MEDS: LACTATED RINGERS 1,000 ML 100 ML IV ×2 (13:55→20:58)
--- NOTE | 2020-03-05 14:08 | PC.NURSE ---
Patient alert, oriented, denies pain and nausea. CMS+ to LLE, scd's on, patient oriented to room and call light. Last void per patient was at 0700.
[2020-03-05] MEDS: ACETAMINOPHEN 325 MG TABLET 650 MG PO ×2 (14:44→20:47)
[2020-03-05] MEDS: hydrOXYzine pamoate 25 MG CAPSULE PO ×2 (15:30→23:48)
--- NOTE | 2020-03-05 16:51 | PT.IIE ---
Current Diagnoses Unilateral primary osteoarthritis, left knee (03/05/20) Surgery Performed Operation Date: 03/05/20 10:15 Actual Procedures p Total Knee Arthroplasty(Left) - Arley Ruiz MD Surgical History (Last Updated 02/28/20 @ 09:52 by Agnes Pfeiffer RN) History of ankle surgery History of arthroplasty of left shoulder History of arthroplasty of right shoulder History of lumbar laminectomy History of total left hip arthroplasty (04/20/19) Hx of bariatric surgery (2010) Hx of cholecystectomy (Unknown) Hx of lumbar discectomy (11/2015) Hx of thumb surgery Hx of total knee arthroplasty (03/2015) S/P epidural steroid injection S/P epidural steroid injection S/P total hip arthroplasty (01/2017) Status post total hip replacement, right Medical History (Last Updated 02/28/20 @ 10:13 by Agnes Pfeiffer RN) Concussion (08/28/19) DDD (degenerative disc disease), cervical (Unknown) Degeneration of intervertebral disc of cervical region (07/04/10) Depression Facet arthropathy, lumbar Generalized osteoarthritis of multiple sites (07/04/10) Herpes Herpes simplex type 2 infection Hip pain History of bariatric surgery (05/23/11) Hyperlipemia (Unknown) Hypertension (Unknown) Hypoglycemia Hypothyroidism (07/04/10) Left shoulder pain Morbid obesity (07/04/10) Occipital neuralgia of right side Osteopenia (~01/2016) Restless leg syndrome (Unknown) Scoliosis (and kyphoscoliosis), idiopathic Sleep apnea Physical Therapy Inpatient Evaluation/Re-Eval M1 PT/OT-IP Prior Functional Status Start: 03/05/20 15:59 Freq: NEEDED Status: Active Protocol: Document 03/05/20 16:33 AW (Rec: 03/05/20 16:51 AW [id number]) Medical Review Prior Functional Status Medical History Reviewed Yes Communication WNL. Pt is an effective verbal communicator. Mobility and Gait Pt states she is independent with household mobility and uses a cane occasionally out of the house for uneven surfaces. Activities of Daily Living and IADL's Pt is independent with all I/ ADL's. She is an active grain combine driver . Social History Household Members other Living Arrangements Mobile home Number of Floors (Floors) One Floor Number of Stairs To Enter/Railing? Pt has ramped entry. Home Environment Standard Height Toilet,Tub/ Shower Home Equipment Front Wheel Walker,Straight Cane,Raised Toilet Seat w/ Armrests,Shower Seat without Backrest,Hand Held Shower,Grab Bars In Shower Additional Social History Comment Pt resides in a senior citizen mobile home park in [place]. She rents out a room to a friend named Giovana. Roommate works during the day but will be able to assist at night. M2 PT-IP Current Condition Start: 03/05/20 15:59 Freq: NEEDED Status: Active Protocol: Document 03/05/20 16:33 AW (Rec: 03/05/20 16:51 AW [id number]) Physical Therapy Current Condition Current Condition Evaluation Date 03/05/20 Treatment Diagnosis L TKA; difficulty in walking Onset Date 03/05/20 Weight Bearing Status Weight Bearing Status Weight Bear as Tolerated M3 PT-IP Subjective Start: 03/05/20 15:59 Freq: NEEDED Status: Active Protocol: Document 03/05/20 16:33 AW (Rec: 03/05/20 16:51 AW [id number]) Subjective Physical Therapy Visit Type Type Initial Evaluation Visit Start Time 16:12 Visit Stop Time 16:33 Total Visit Minutes 21 Physical Therapy Visit Comments Patient Comments Pt is willing to work with PT Patient Goals Return home with roommate assist. Therapy Pain Assessment Pain When Pain Assessed During Mobility Pain Present Pain Present Pain Reported Location left knee Intensity 6 Scale Used Numeric (0 - 10) Pain Management Techniques Apply Cold,Timing of Activity with Medications M4 PT-IP Mobility and Gait Start: 03/05/20 15:59 Freq: NEEDED Status: Active Protocol: Document 03/05/20 16:33 AW (Rec: 03/05/20 16:51 AW [id number]) PT-Bed Mobility Assessment Supine to Sit Supine to Sit Standby Assistance Scooting Scooting to Edge of Bed Standby Assistance PT-Transfer Assessment Sit to and From Stand Sit to and from Stand Contact Guard Assistance,1 Person Assistance,Use of Upper Extremities Equipment Transfer Assistive Device Gait Belt,Front Wheeled Walker Orthotic/Prosthetic Devices or Brace: No Transfers Transfer Destination Chair,Toilet Transfer Technique Stand Step Pivot Transfer Ability Level of Assist Contact Guard Assistance,1 Person Assistance,Use of Upper Extremities Comments Mobility Comments Pt completed bed mobility SBA and sat EOB for assessment. BP in sitting was 118/62 HR 63. Pt stood from the bed with FWW CGA and walked to the toilet CGA where she was able to transfer CGA and manage her own pericare. Pt stood from the toilet and walked to the sink CGA where she stood with good balance, reaching across and outside her CELIO with SBA to wash her hands. Pt donned her face mask and ambulated a total of 50 feet but began to complain of nausea and lightheadedness at around 40 feet. She transferred to the chair CGA. BP was 159/84 HR 66 . PT discussed pt's symptoms with nursing who arrived to assess. Gait Assessment Gait Gait Assistance Required: Contact Guard Assist Distance (Feet) 50 Able to Maintain Weight Bearing Status Yes During Gait Assistive Devices Assistive Device Gait Belt,Front Wheeled Walker Orthotic/Prosthetic Devices or Brace: No Gait Deviations General Gait Pattern Antalgic,Decreased Stride Length,Decreased Feet Clearance,Flexed Trunk,Step-to Gait Factors Limiting Gait Function Factors Limiting Gait Function Decreased Sensation,Decreased Strength,Limited Range of Motion,Pain Comments Gait Comments See mobility comments for details. WB on the FWW was minimal and pt responded well to cues to push vs slat pickler the walker. Stair Climbing Assessment Comments Stair Climbing Comments Not assessed. PT-Balance Assessment Sitting Balance and Reactions Static Sitting Balance Ability Good Dynamic Sitting Balance Ability Good Standing Balance and Reactions Static Standing Balance Ability Good Dynamic Standing Balance Ability Good Device Used fww M5 PT-IP Objective Assessments Start: 03/05/20 15:59 Freq: NEEDED Status: Active Protocol: Document 03/05/20 16:33 AW (Rec: 03/05/20 16:51 AW [id number]) Orientation Orientation/Cognition Level of Alertness Alert Orientation Name,Day of Week,Place, Situation Language Function Ability No Deficits Noted Safety Awareness Understands Safety Issues Memory Description No Deficits Noted Gross Range of Motion Lower Extremity ROM Assessment Left Impaired Strength Lower Extremity Strength Assessment Left Impaired Hip 4-/5 Knee 3 Comments Strength Comments RLE grossly 4+/5 Coordination Assessment Gross Coordination Gross Coordination WNL Sensation Assessment Sensation Gross Sensation Right LE Impaired,Left LE Impaired Light Touch Impaired Sensation Description Numbness Comments Sensation Comments Numbness reported in saddle region and posterior buttocks/ thighs. Muscle Tone Muscle Tone WNL Yes M6 PT-IP Treatment Start: 03/05/20 15:59 Freq: NEEDED Status: Active Protocol: Document 03/05/20 16:33 AW (Rec: 03/05/20 16:51 AW [id number]) Physical Therapy Treatment Exercises Exercises Ankle Pumps,Quad Sets,Heel Slides Education Education Provided Precautions,Weight Bearing Status,Post-Op Packet,Safety Other Treatments Other Treatment Performed Provided education on role of PT, plan of care, and safe use of FWW. M7 PT-IP Assessment and Plan Start: 03/05/20 15:59 Freq: NEEDED Status: Active Protocol: Document 03/05/20 16:33 AW (Rec: 03/05/20 16:51 AW [id number]) PT Summary Assessment and Plan Potential Rehabilitation Potential Excellent Status of Condition at Evaluation Evolving Summary Impairments Pain,ROM,Strength,Balance, Sensation,Transfers,Gait Assessment Summary Elizabeth is a 69 yo woman seen for PT evaluation on POD0 following L TKA. She has history of R TKA and B TSA. She is independent in all regards at baseline. CLOF: Pt required CGA for all mobilities and was limited by nausea and lightheadedness. PT anticipates she will be safe to discharge home with assist and outpatient PT once medically cleared. Goals Bed Mobility Goal Independent Transfer Goal Independent Gait Goal Independent,Front Wheel Walker Gait Distance 150 Days to Meet Goals 3 Frequency of Treatment Frequency Of Treatment Twice a Day Treatment Plan Physical Therapy Treatment Plan Bed Mobility Training,Transfer Training,Gait Training, Therapeutic Exercise,Balance Retraining,Post Op Education, Discharge Planning,Hot or Cold Pack,Neuromuscular Re-ed Other Recommendations and Next Treatment review ther ex; progress gait Focus training with fww Recommendations To Nursing Amount of Assist Needed 1 Person Assist Discharge Recommendations PT Discharge Recommendations Home with Assistance, Outpatient PT Transportation Needs at Discharge Private Vehicle
[2020-03-05] MEDS: PRAMIPEXOLE 0.25 MG TABLET 0.125 MG PO (17:48)
[2020-03-05] MEDS: ONDANSETRON 4 MG/2 ML INJ IV (17:59)
--- NOTE | 2020-03-05 18:21 | PC.NURSE ---
Addendum entered by Zulema Krueger R.N. 03/05/20 21:47: Satisfactory post op course. Relatively uneventful evening. Call light w/in reach, bed alarm on for pt safety. Continue w/plan of care. Original Note: Pt resting at intervals. Med w/vistaril for itching. @ 1535 w/good relief. Med [id number] w/zofran for nausea w/good relief. Left knee dsg Renan wrap/aquacell CDI. SCD in place. Call light w/in reach, pt calls appropriately for needs.
[2020-03-05] MEDS: DOCUSATE 100 MG CAPSULE PO (20:47)
[2020-03-05] MEDS: ASPIRIN EC 81 MG TABLET PO (20:47)
[2020-03-05] MEDS: diphenhydrAMINE 25 MG TABLET 50 MG PO (20:47)
[2020-03-05] MEDS: HYDROMORPHONE 2 MG TABLET PO (23:48)
[2020-03-06 03:58] VITALS: BP 100/60; PULSE 57; RESP 16; TEMP 35.7
[2020-03-06 05:49] LABS: Hematocrit 32.6 % (36-46); Hemoglobin 10.4 g/dL (12.0-16.0)
[2020-03-06] MEDS: HYDROMORPHONE 2 MG TABLET PO (06:11)
--- NOTE | 2020-03-06 07:46 | PM.DS.1 ---
History of Present Illness History of Present Illness Date Patient Seen: 03/06/20 Time Patient Seen: 07:46 Chief complaint: Left Total Knee Arthroplasty *OPB* Narrative: The history and physical is contained in the chart in the previously completed note. Please refer to that note for this information. Discharge Providers Provider Discharge Date: 03/06/20 Primary care physician: José Luis Hammonds MD Consults: 03/05/20 13:06 Consult to Discharge Planning Routine Comment: Consult to Physical Therapy Evaluate & Treat Comment: Physician Instructions: postop TKA protocol Discharge provider: Arley Ruiz MD Summary Hospital Course Discharge Diagnosis: 1. Left knee osteoarthritis with loose bodies 2. Post hemorrhagic anemia Hospital Course: The patient was admitted to the hospital and taken directly to the operating room on March 05, 2020. She underwent a left total knee replacement without significant complications. Postoperative course was marked by itching with her postoperative pain medications but otherwise she was comfortable. On postoperative day 1 she is ready for discharge. Status at Discharge Cognitive/behavioral status at discharge: oriented Functional status at discharge: uses cane/walker Overall status at discharge: patient is progressing back to baseline Time Spent with Patient Time spent: Less than 30 minutes Exam Vital Signs (past 8 hours): - 03/06/20 03:58 Temperature 96.2 F L Pulse Rate 57 L Respiratory Rate 16 Blood Pressure 100/60 Oxygen Delivery Method Room Air Oxygen Flow Rate 0 Narrative Exam Narrative: Left knee wound is dressed with no drainage on the bandage. There is mild swelling. Calf is soft. Light touch and motion are intact in the left lower extremity Objective Labs Result Diagrams: 03/06/20 05:00 Labs: Laboratory Results - last 24 hr 03/06/20 05:00 Hgb 10.4 L Hct 32.6 L PFSH Medical History (Updated 02/28/20 @ 10:13 by Agnes Pfeiffer RN) Concussion (08/28/19) DDD (degenerative disc disease), cervical (Unknown) Degeneration of intervertebral disc of cervical region (07/04/10) Depression Facet arthropathy, lumbar Generalized osteoarthritis of multiple sites (07/04/10) Herpes Herpes simplex type 2 infection Hip pain History of bariatric surgery (05/23/11) Hyperlipemia (Unknown) Hypertension (Unknown) Hypoglycemia Hypothyroidism (07/04/10) Left shoulder pain Morbid obesity (07/04/10) Occipital neuralgia of right side Osteopenia (~01/2016) Restless leg syndrome (Unknown) Scoliosis (and kyphoscoliosis), idiopathic Sleep apnea Surgical History (Updated 02/28/20 @ 09:52 by Agnes Pfeiffer RN) History of ankle surgery History of arthroplasty of left shoulder History of arthroplasty of right shoulder History of lumbar laminectomy History of total left hip arthroplasty (04/20/19) Hx of bariatric surgery (2010) Hx of cholecystectomy (Unknown) Hx of lumbar discectomy (11/2015) Hx of thumb surgery Hx of total knee arthroplasty (03/2015) S/P epidural steroid injection S/P epidural steroid injection S/P total hip arthroplasty (01/2017) Status post total hip replacement, right Family History Father Congestive heart failure Heart disease Mother Hypertension Heart disease Grandfather Stroke Social History household members: other occupational status: employed Smoking Status: Never smoker second hand exposure: No alcohol intake: current substance use type: does not use Discharge Assessment & Plan Assessment and Plan Assessment: Stable postoperative day 1 status post left total knee replacement. There is a mild post hemorrhagic anemia which is asymptomatic. Plan of Treatment: Discharged home today. Follow up my office in 2 weeks. Prescriptions for oxycodone and hydroxyzine have been sent to the pharmacy. She will be instructed on the use of aspirin for DVT prophylaxis and Tylenol for additional pain control. Discharge Plan Discharge Plan Patient Disposition: Home Discharge orders & Medications Discharge Orders: Discharge (Order); Ordered 03/06/20 Ordered By: Arley Ruiz Prescriptions: New acetaminophen 325 mg Tablet 650 mg PO TID 30 Days Qty: 180 RF: 0 aspirin 81 mg Tablet,Delayed Release (Dr/Ec) 81 mg PO BID 42 Days Qty: 84 RF: 0 oxycodone 5 mg Tablet 5 mg PO Q4HR PRN (Reason: Pain, Moderate (4-6)) Qty: 40 RF: 0 hydroxyzine pamoate 25 mg Capsule 25 mg PO Q6HR PRN (Reason: Nausea) Qty: 30 RF: 0 Continued pramipexole [Mirapex] 0.25 mg tablet 0.25 - 0.5 mg PO PM Qty: 180 RF: 3 tizanidine 4 mg tablet 4 mg PO BEDTIME PRN (Reason: muscle spasm) Qty: 30 RF: 5 Hold Instructions: Home Medication placed on hold at Doctor's office estradiol 0.01 % (0.1 mg/gram) cream See Rx Instructions VAG BEDTIME Qty: 42.5 RF: 2 polysaccharide iron complex [iFerex 150] 150 mg iron capsule 150 mg PO BEDTIME Qty: 90 RF: 3 cholecalciferol (vitamin D3) 1,000 unit capsule 1,000 unit PO DAILY RF: 0 urea 40 % cream 1 applictn TOP BID PRN (Reason: skin irritation) Qty: 85 RF: 1 valacyclovir 500 mg tablet 500 mg PO DAILY Qty: 90 RF: 0 diclofenac sodium 3 % gel 1 applictn TOP BID PRN (Reason: Pain in hands) RF: 0 valacyclovir 1 gram tablet 1,000 mg PO DAILY PRN (Reason: Herpes breakout) RF: 0 celecoxib [Celebrex] 200 mg capsule 200 mg PO DAILY Qty: 180 RF: 1 Hold Instructions: Home Medication placed on hold at Doctor's office Discontinued acetaminophen-codeine 300-30 mg tablet 1 tab PO BID PRN (Reason: pain) Qty: 60 RF: 2 diphenhydramine HCl [Benadryl] 25 mg Capsule 50 mg PO BEDTIME RF: 0 No Action (DME) glucose meter Qty: 1 RF: 0 (DME) Glucose: Test Strips See Rx Instructions .Route .MEDSUPPLY Qty: 100 RF: 3 (DME) Lancet: Device See Rx Instructions .Route .MEDSUPPLY Qty: 100 RF: 3 Follow up/Referrals: José Luis Hammonds MD [Primary Care Provider] - Arley Ruiz MD [Physician] - 2 Weeks Diet/Activity/Treatments Diet: Diet as Tolerated and Regular Activity: You may bear weight as tolerated on your left leg. Cold/Heat Therapy: Apply ice for 15 minutes every hour as needed to the left knee for pain control. Skin/Wound/Dressing Care Report to your healthcare provider any signs of infection, such as:: chills, fever, night sweats, increased pain, unusual drainage and unusual redness Dressing: You may remove the Renan wrap 3 days after surgery and shower normally. Leave the deeper dressing in place until follow-up. If the deeper dressing becomes saturated with either water or blood, please call the office to have it evaluated. Visit Report/Discharge Packet Instructions: DI for Knee Replacement Stand Alone Forms: Surgery Discharge Discharge Data Primary Care Provider: José Luis Hammonds Attending Provider: Arley Ruiz Quality VTE Deep Vein Thrombosis/Pulmonary Embolism Present on Admission: No
[2020-03-06 08:24] VITALS: BP 112/63; PULSE 59; RESP 16; TEMP 36.4; O2SAT 97
[2020-03-06] MEDS: ACETAMINOPHEN 325 MG TABLET 650 MG PO (09:19)
[2020-03-06] MEDS: OXYCODONE IR 5 MG TABLET PO (09:20)
[2020-03-06] MEDS: hydrOXYzine pamoate 25 MG CAPSULE PO (09:20)
[2020-03-06] MEDS: DOCUSATE 100 MG CAPSULE PO (09:20)
[2020-03-06] MEDS: ASPIRIN EC 81 MG TABLET PO (09:20)
[2020-03-06] MEDS: CHOLECALCIFEROL (VITAMIN D3) 1,000 UNIT TABLET 1000 UNIT PO (09:20)
[2020-03-06] MEDS: CELECOXIB 200 MG CAPSULE PO (09:20)
--- NOTE | 2020-03-06 09:50 | PT.IPTN ---
Current Diagnoses Unilateral primary osteoarthritis, left knee (03/05/20) Surgery Performed Operation Date: 03/05/20 10:15 Actual Procedures p Total Knee Arthroplasty(Left) - Arley Ruiz MD Physical Therapy Treatment Note M2 PT-IP Current Condition Start: 03/05/20 15:59 Freq: NEEDED Status: Active Protocol: Document 03/06/20 10:08 MA (Rec: 03/06/20 10:22 MA [id number]) Physical Therapy Current Condition Current Condition Evaluation Date 03/05/20 Treatment Diagnosis L TKA; difficulty in walking Onset Date 03/05/20 Weight Bearing Status Weight Bearing Status Weight Bear as Tolerated M3 PT-IP Subjective Start: 03/05/20 15:59 Freq: NEEDED Status: Active Protocol: Document 03/06/20 10:08 MA (Rec: 03/06/20 10:22 MA [id number]) Subjective Physical Therapy Visit Type Type Treatment Note Visit Start Time 09:34 Visit Stop Time 09:49 Total Visit Minutes 15 Physical Therapy Visit Comments Patient Comments Pt is willing to work with PT Patient Goals Return home with roommate assist. Therapy Pain Assessment Pain When Pain Assessed During Mobility Pain Present Pain Present Allowed to Sleep Location left knee Intensity 6 Scale Used Numeric (0 - 10) Pain Management Techniques Re-positioning,Timing of Activity with Medications M4 PT-IP Mobility and Gait Start: 03/05/20 15:59 Freq: NEEDED Status: Active Protocol: Document 03/06/20 10:08 MA (Rec: 03/06/20 10:22 MA [id number]) PT-Bed Mobility Assessment Supine to Sit Supine to Sit Standby Assistance Scooting Scooting to Edge of Bed Standby Assistance PT-Transfer Assessment Sit to and From Stand Sit to and from Stand Contact Guard Assistance,1 Person Assistance,Use of Upper Extremities Equipment Transfer Assistive Device Gait Belt,Front Wheeled Walker Orthotic/Prosthetic Devices or Brace: No Comments Mobility Comments Pt was SBA for all bed mobility and CGA for sit<> stand from EOB. She ambulated 60 feet down hallway and retrurned to EOB, CGA with personal FWW. She had no nausea or lightheadedness today. At EOB performed ankle pumps while seated. Pt declined sitting in chair stating she would do it for lunch but needed a nap first. Was returned to supine where INDUSTRIAL LOCOMOTIVE OPERATOR had pt practice reviewing quad sets, heel slides, and ankle pumps. Gait Assessment Gait Gait Assistance Required: Contact Guard Assist Distance (Feet) 60 Able to Maintain Weight Bearing Status Yes During Gait Assistive Devices Assistive Device Gait Belt,Front Wheeled Walker Orthotic/Prosthetic Devices or Brace: No Gait Deviations General Gait Pattern Antalgic,Decreased Stride Length,Decreased Feet Clearance,Flexed Trunk,Step-to Gait Factors Limiting Gait Function Factors Limiting Gait Function Decreased Sensation,Decreased Strength,Limited Range of Motion,Pain Comments Gait Comments See mobility comments Stair Climbing Assessment Comments Stair Climbing Comments Not assessed. Pt has ramp at home PT-Balance Assessment Sitting Balance and Reactions Static Sitting Balance Ability Good Dynamic Sitting Balance Ability Good Standing Balance and Reactions Static Standing Balance Ability Good Dynamic Standing Balance Ability Good Device Used fww M5 PT-IP Objective Assessments Start: 03/05/20 15:59 Freq: NEEDED Status: Active Protocol: Document 03/05/20 16:33 AW (Rec: 03/05/20 16:51 AW [id number]) Orientation Orientation/Cognition Level of Alertness Alert Orientation Name,Day of Week,Place, Situation Language Function Ability No Deficits Noted Safety Awareness Understands Safety Issues Memory Description No Deficits Noted Gross Range of Motion Lower Extremity ROM Assessment Left Impaired Strength Lower Extremity Strength Assessment Left Impaired Hip 4-/5 Knee 3 Comments Strength Comments RLE grossly 4+/5 Coordination Assessment Gross Coordination Gross Coordination WNL Sensation Assessment Sensation Gross Sensation Right LE Impaired,Left LE Impaired Light Touch Impaired Sensation Description Numbness Comments Sensation Comments Numbness reported in saddle region and posterior buttocks/ thighs. Muscle Tone Muscle Tone WNL Yes M6 PT-IP Treatment Start: 03/05/20 15:59 Freq: NEEDED Status: Active Protocol: Document 03/06/20 10:08 MA (Rec: 03/06/20 10:22 MA [id number]) Physical Therapy Treatment Exercises Exercises Ankle Pumps,Quad Sets,Heel Slides,Passive Knee Extension Hang Education Education Provided Precautions,Weight Bearing Status,Post-Op Packet,Safety Other Treatments Other Treatment Performed Provided education on importance of out-pt PT since pt states she may go stay in [place] with new boyfriend during recovery. M7 PT-IP Assessment and Plan Start: 03/05/20 15:59 Freq: NEEDED Status: Active Protocol: Document 03/06/20 10:08 MA (Rec: 01/12/21 10:22 MA [id number]) PT Summary Assessment and Plan Potential Rehabilitation Potential Excellent Status of Condition at Evaluation Stable Summary Impairments Pain,ROM,Strength,Balance, Sensation,Transfers,Gait Assessment Summary Pt shows good carryover of training from previous session . She was able to walk 60 feet with no lightheadedness today with 6/10 pain in L knee, requesting to turn around at 30 feet due to pain. Once returned to bed, pt performed quad sets, heel slides, and ankle pumps well without any cues. Reviewed post-op PT packet with pt and educated her on importance of continuing with out-pt PT. Pt will be safe to discharge home with assist and outpatient PT once medically cleared. Goals Bed Mobility Goal Independent Transfer Goal Independent Gait Goal Independent,Front Wheel Walker Gait Distance 150 Days to Meet Goals 3 Frequency of Treatment Frequency Of Treatment Twice a Day Treatment Plan Physical Therapy Treatment Plan Bed Mobility Training,Transfer Training,Gait Training, Therapeutic Exercise,Balance Retraining,Post Op Education, Discharge Planning,Hot or Cold Pack,Neuromuscular Re-ed Other Recommendations and Next Treatment progress gait training with Focus fww Recommendations To Nursing Amount of Assist Needed 1 Person Assist Discharge Recommendations PT Discharge Recommendations Home with Assistance, Outpatient PT Transportation Needs at Discharge Private Vehicle
--- NOTE | 2020-03-06 10:35 | CM.DANOTE ---
DCP: Case received, EMR reviewed and met with patient. Introduced self and role. Was able to obtain information regarding patient's baseline activity status and living situation prior to surgery. DCP assessment completed with information currently available. Patient is a 69 year old female who admitted yesterday morning to the care of the orthopedic team. PCP: Dr. Hammonds. Payer: confirmed: [facility]. Patient came to the hospital for a surgical procedure. She had a left total knee arthroplasty. Patient has history of osteoarthritis of her left knee. Met with patient in her room. She was sitting up in bed, alert and oriented. Patient indicated that she lives alone, but has someone who rents her apartment named Giovana, who will assist her at home. Patient stated, she has helped me out before when I had my other surgery done. Patient uses a cane occasionally at baseline. She resides in [facility]. P: Patient has discharge orders for home today. She will be working with P.T. again before she discharges. Marie Edmondson RN/Traffic Personnel Supervisor
--- NOTE | 2020-03-06 11:26 | PC.NURSE ---
Pt moving well, pain mild to moderate with PO pain meds; LS clear, IS 1500, Renan drsg intact; tolerating diet, no nausea; cleared from PT this morning, but patient requests one more session after lunch; d/c instructions reviewed, including s/sx infection, f/u appt, rx medications
--- NOTE | 2020-03-06 12:46 | PT.IPTN ---
Current Diagnoses Unilateral primary osteoarthritis, left knee (03/05/20) Surgery Performed Operation Date: 03/05/20 10:15 Actual Procedures p Total Knee Arthroplasty(Left) - Arley Ruiz MD Physical Therapy Treatment Note M2 PT-IP Current Condition Start: 03/05/20 15:59 Freq: NEEDED Status: Active Protocol: Document 03/06/20 12:47 MA (Rec: 03/06/20 13:00 MA [id number]) Physical Therapy Current Condition Current Condition Evaluation Date 03/05/20 Treatment Diagnosis L TKA; difficulty in walking Onset Date 03/05/20 Weight Bearing Status Weight Bearing Status Weight Bear as Tolerated M3 PT-IP Subjective Start: 03/05/20 15:59 Freq: NEEDED Status: Active Protocol: Document 03/06/20 12:47 MA (Rec: 03/06/20 13:00 MA [id number]) Subjective Physical Therapy Visit Type Type Treatment Note Visit Start Time 12:32 Visit Stop Time 12:46 Total Visit Minutes 14 Number of SHADOW GRAPH WEIGHT OPERATOR Visits 2 Physical Therapy Visit Comments Patient Comments Pt is willing to work with PT and would like to go for a longer walk and get dressed before d/c Patient Goals Return home with roommate assist. Therapy Pain Assessment Pain When Pain Assessed During Mobility Pain Present Pain Present Allowed to Sleep Location left knee Intensity 6 Scale Used Numeric (0 - 10) Pain Management Techniques Re-positioning,Timing of Activity with Medications M4 PT-IP Mobility and Gait Start: 03/05/20 15:59 Freq: NEEDED Status: Active Protocol: Document 03/06/20 12:47 MA (Rec: 03/06/20 13:00 MA [id number]) PT-Transfer Assessment Sit to and From Stand Sit to and from Stand Standby Assistance,Use of Upper Extremities Equipment Transfer Assistive Device Gait Belt,Front Wheeled Walker Orthotic/Prosthetic Devices or Brace: No Transfers Transfer Destination Chair Transfer Technique Stand Step Pivot Transfer Ability Level of Assist Standby Assistance,1 Person Assistance,Use of Upper Extremities Comments Mobility Comments Pt was found seated EOB with nurse present. Pt requests getting dressed before starting to walk in hallway this afternoon. Pt was able to transfer to chair and dress herself independently while seated in bedside chair, SBA when getting up to pull pants up. Pt needed Min A for donning L shoe. Gait Assessment Gait Gait Assistance Required: Standby Assistance Distance (Feet) 270 Able to Maintain Weight Bearing Status Yes During Gait Assistive Devices Assistive Device Gait Belt,Front Wheeled Walker Orthotic/Prosthetic Devices or Brace: No Gait Deviations General Gait Pattern Antalgic,Decreased Stride Length,Decreased Feet Clearance,Flexed Trunk Factors Limiting Gait Function Factors Limiting Gait Function Decreased Sensation,Decreased Strength,Limited Range of Motion,Pain Comments Gait Comments Pt was able to ambulate to end of hallway and back to room 270 ft SBA with FWW, step- through gait pattern. Pt tends to rely heavily on UEs and needs one standing rest break stating, my shoulders get tired. Cues to relax shds and put less weight through UEs helped. Stair Climbing Assessment Comments Stair Climbing Comments Not assessed. Pt has ramp at home PT-Balance Assessment Sitting Balance and Reactions Static Sitting Balance Ability Normal Dynamic Sitting Balance Ability Normal Standing Balance and Reactions Static Standing Balance Ability Good Dynamic Standing Balance Ability Good Device Used fww M5 PT-IP Objective Assessments Start: 03/05/20 15:59 Freq: NEEDED Status: Active Protocol: Document 03/05/20 16:33 AW (Rec: 03/05/20 16:51 AW [id number]) Orientation Orientation/Cognition Level of Alertness Alert Orientation Name,Day of Week,Place, Situation Language Function Ability No Deficits Noted Safety Awareness Understands Safety Issues Memory Description No Deficits Noted Gross Range of Motion Lower Extremity ROM Assessment Left Impaired Strength Lower Extremity Strength Assessment Left Impaired Hip 4-/5 Knee 3 Comments Strength Comments RLE grossly 4+/5 Coordination Assessment Gross Coordination Gross Coordination WNL Sensation Assessment Sensation Gross Sensation Right LE Impaired,Left LE Impaired Light Touch Impaired Sensation Description Numbness Comments Sensation Comments Numbness reported in saddle region and posterior buttocks/ thighs. Muscle Tone Muscle Tone WNL Yes M6 PT-IP Treatment Start: 03/05/20 15:59 Freq: NEEDED Status: Active Protocol: Document 03/06/20 12:47 MA (Rec: 03/06/20 13:00 MA [id number]) Physical Therapy Treatment Education Education Provided Post-Op Packet,Safety Other Treatments Other Treatment Performed Reminded pt of post-op packet with exercises and to make out -pt PT appointment once discharged M7 PT-IP Assessment and Plan Start: 03/05/20 15:59 Freq: NEEDED Status: Active Protocol: Document 03/06/20 12:47 MA (Rec: 03/06/20 13:00 MA [id number]) PT Summary Assessment and Plan Potential Rehabilitation Potential Excellent Status of Condition at Evaluation Stable Summary Impairments Pain,ROM,Strength,Balance, Sensation,Gait Assessment Summary Pt was able to complete increased distance during gait training this afternoon. She is safe to d/c home with assistance and outpatient PT Goals Bed Mobility Goal Independent Transfer Goal Independent Gait Goal Independent,Front Wheel Walker Gait Distance 150 Days to Meet Goals 3 Frequency of Treatment Frequency Of Treatment Twice a Day Treatment Plan Physical Therapy Treatment Plan Bed Mobility Training,Transfer Training,Gait Training, Therapeutic Exercise,Balance Retraining,Post Op Education, Discharge Planning,Hot or Cold Pack,Neuromuscular Re-ed Recommendations To Nursing Amount of Assist Needed Standby Assistance,1 Person Assist Discharge Recommendations PT Discharge Recommendations Home with Assistance, Outpatient PT Transportation Needs at Discharge Private Vehicle
== END 2020-03-06 14:00 | disposition home or self-care (01) ==
LOC: OR 08:07 → AC 08:08
PROVIDERS: Family Provider Student in an Organized Health Care Education/Training Program; PCP Student in an Organized Health Care Education/Training Program; Referring Provider Orthopaedic Surgery; Visit Provider Orthopaedic Surgery
PROC: 0SRD0JZ Replacement of Left Knee Joint with Synthetic Substitute, Open Approach (ICD-10-PCS; CPT 27447; principal; 2020-03-05 10:15)
DX: M17.12 Unilateral primary osteoarthritis, left knee (principal); M23.42 Loose body in knee, left knee; D50.0 Iron deficiency anemia secondary to blood loss (chronic)
CPT/HCPCS: 27447; 73560; 85014; 85018; 97116; 97161; C1776; C9290; J0690; J2250; J2270; J2274; J2405; J2704

== ENCOUNTER → 2020-05-09 13:22 | Outpatient (CLI) | payer MEDICARE, SELFPAY ==
[2020-03-05 13:13] VITALS: BMI 24.9
[2021-02-12] MEDS: COVID-19 VACC #1, MRNA(MOD) 100 MCG/0.5 ML VIAL IM (12:12)
== END ==
PROVIDERS: Family Provider Student in an Organized Health Care Education/Training Program; PCP Student in an Organized Health Care Education/Training Program; Visit Provider Internal Medicine
DX: Z23 Encounter for immunization (principal)
CPT/HCPCS: 0011A; 0031A; 91301; 91303

== ENCOUNTER → 2020-06-06 12:56 | Outpatient (CLI) | payer MEDICARE, SELFPAY ==
[2020-03-05 13:13] VITALS: BMI 24.9
[2020-06-06 11:28] VITALS: BMI 24.9
[2020-06-06] MEDS: COVID-19 VACC #2, MRNA(MOD) 100 MCG/0.5 ML VIAL IM (13:13)
== END ==
PROVIDERS: Family Provider Student in an Organized Health Care Education/Training Program; PCP Student in an Organized Health Care Education/Training Program; Visit Provider Internal Medicine
DX: Z23 Encounter for immunization (principal)
CPT/HCPCS: 0012A; 91301

== ENCOUNTER → 2020-08-06 13:33 | Outpatient (CLI) | payer OTHER, SELFPAY ==
[2020-06-06 11:28] VITALS: BMI 24.9
--- NOTE | 2020-08-06 13:34 | DI.RAD.S_ITS ---
PROCEDURE: XR CERVICAL SPINE 4V OR 5V INDICATIONS: neck pain with LEONE TECHNIQUE: 5 views of the cervical spine acquired. COMPARISON: [facility], CR, CERVICAL SPINE 2 OR 3 VIEWS, 10/25/2014, 16:24. [facility], CT, CT CERVICAL SPINE WITHOUT CONTRAST, 08/30/2019, 12:07. FINDINGS: Bones: Straightening of the normal lordotic curvature. Grade 1/2 anterolisthesis of C3 on C4. Chronic osseous fusion of the C4-C5 and C5-C6 vertebral bodies. There is moderate narrowing of the C6-C7 disc space which is grossly unchanged. Fracture fragments versus heterotopic ossification adjacent to the C7 and T1 spinous processes, chronic. Mild to moderate narrowing of the C2-C3 and C3-C4 disc spaces Soft tissues: No prevertebral soft tissue swelling. IMPRESSION: Chronic osseous fusion of the C4-C6 vertebral bodies. This is new at the level of C4-C5 since 10/25/14. Mild to moderate narrowing of the remaining cervical disc spaces most pronounced at the inferior unfused segment although no interval change. Straightening of the normal lordotic curvature. Multilevel spondylolisthesis as above. Dictated by: Zak Back M.D. on 08/06/2020 at 14:26 Approved by: Zak Back M.D. on 08/06/2020 at 14:31
== END ==
PROVIDERS: Family Provider Student in an Organized Health Care Education/Training Program; PCP Student in an Organized Health Care Education/Training Program; Referring Provider Physical Medicine & Rehabilitation; Visit Provider Physical Medicine & Rehabilitation
DX: M54.81 Occipital neuralgia (principal); M43.12 Spondylolisthesis, cervical region; M48.02 Spinal stenosis, cervical region; M41.20 Other idiopathic scoliosis, site unspecified; M47.812 Spondylosis without myelopathy or radiculopathy, cervical region; F07.81 Postconcussional syndrome; Z98.1 Arthrodesis status
CPT/HCPCS: 64405; 64450; 72050; 99214; J1100

== ENCOUNTER → 2020-10-10 14:36 | Outpatient (CLI) | payer OTHER, SELFPAY ==
[2020-06-06 11:28] VITALS: BMI 24.9
--- NOTE | 2020-10-10 14:37 | DI.RAD.S_ITS ---
PROCEDURE: XR ANKLE RT 2V INDICATIONS: Right ankle pain TECHNIQUE: 3 views of the ankle were acquired. COMPARISON: [facility], , ANKLE 3 VIEWS RIGHT, 02/03/2017, 17:34. FINDINGS: Bones: No fractures or dislocations. Stable positioning of lateral fixation plate and multiple associated fixation screws. Stable appearance of tibiotalar joint prosthesis. 2 surgical screws again also seen traversing the anterior process of the talus and anterior calcaneus and the posterior screw traversing the calcaneus and subtalar joint. No periprosthetic fractures or evidence of loosening/infection. Bones are osteopenic. Soft tissues: No tibiotalar joint effusion. Achilles tendon appears normal. IMPRESSION: Stable postsurgical sequelae and bony alignment. Dictated by: River Amezcua [facility] Interpreted: Clement Wright MD on 10/10/2020 at 15:18 Transcribed by: ALYSSIA on 10/10/2020 at 15:21 Approved by: Clement Wright M.D. on 10/10/2020 at 17:23
== END ==
PROVIDERS: Family Provider Student in an Organized Health Care Education/Training Program; PCP Student in an Organized Health Care Education/Training Program; Referring Provider Student in an Organized Health Care Education/Training Program; Visit Provider Student in an Organized Health Care Education/Training Program
DX: M25.571 Pain in right ankle and joints of right foot (principal)
CPT/HCPCS: 73600

== ENCOUNTER 2020-11-27 07:24 | Outpatient (CLI) | payer OTHER, SELFPAY ==
[2020-06-06 11:28] VITALS: BMI 24.9
[2020-11-27] VITALS (14 sets, daily range): BP systolic 119–162; BP diastolic 63–79; PULSE 58–77; RESP 9–22; TEMP 36.4; O2SAT 94–100
--- NOTE | 2020-11-27 07:26 | DI.RAD.S_ITS ---
PROCEDURE: PAIN L/S MED/LAT N RFA BILAT INDICATIONS: SPONDYLOSIS COMPARISON: [facility], XA, PAIN L/S FACET INJ/BLK 1ST POLO, 10/06/2019, 13:49. FINDINGS: Fluoroscopic spot filming was performed to verify placement of spinal needles at the L3, L4, and L5 levels on both sides, as labeled on the films. IMPRESSION: Intraprocedural examination within normal limits. Dictated by: Jerardo Guerrero M.D. on 11/27/2020 at 8:45 Approved by: Jerardo Guerrero M.D. on 11/27/2020 at 8:46
[2020-11-27] MEDS: fentaNYL 100 MCG/2 ML INJ 50 MCG IV (08:20)
[2020-11-27] MEDS: MIDAZOLAM 5 MG/5 ML VIAL IV (08:20)
[2020-11-27] MEDS: BUPIVACAINE 0.5% (PF) VIAL 5 ML INJ (08:32)
[2020-11-27] MEDS: LIDOCAINE 1% 20 ML 10 ML INJ (08:32)
--- NOTE | 2020-11-27 09:01 | P.PCN_ITS ---
Date/Time/Diagnoses Date of procedure: 11/27/20 Time of procedure: 09:01 Pre-procedure diagnosis: 1. RECALCITRANT FACET ARTHROPATHY Post-procedure diagnosis: same Procedure Notes Procedure: 1. BILATERAL L3, L4 AND L5 MEDIAL BRANCH RADIOFREQUENCY NEUROTOMY Indications: Elizabeth is referred by Dr. Hammonds for treatment of facet arthropathy. Physician: Sunday Strauss Total Fluoroscopy time (seconds): 18 Total sedation minutes: 33 Complications: none Procedure in detail & Post-procedure care: DESCRIPTION OF PROCEDURE Bilateral L3, L4 and L5 medial branch radiofrequency neurotomy The patient is well known to this clinic having undergone previous facet injections with good but temporary relief. The patient has experienced appropriate, concordant relief with previous facet and median branch blocks but the patient's pain has been recalcitrant to further conservative measures. Therefore, based upon the patient's relief and persistent symptoms, the patient is considered an appropriate candidate for facet rhizotomy. All of the patient's questions regarding the risks versus benefits of the procedure, including, but not limited to, bleeding, infection, temporary as well as lasting nerve injury, paralysis, stroke, and , as well treatment alternatives were answered to satisfaction. After obtaining informed consent, denial of pertinent drug allergies, as well as being made aware of the potential risks of bleeding, infection, spinal cord trauma, paralysis, temporary and permanent nerve damage, seizure, stroke, and possible , the patient was brought to the fluoroscopy suite and positioned prone on the fluoroscopy table. The lumbar region was prepped with Betadine and covered with a fenestrated drape in the usual sterile fashion. Appropriate monitors applied including pulse oximeter, pulse, and blood pressure for regular monitoring throughout the procedure. After review of previous anaesthesic history and IV conscious sedation the patient was deemed safe to proceed with today's procedure with IV conscious sedation as ASA class II designation. Safety time-out was performed to confirm patient ID, procedure to be performed and site of procedure. IV sedation was accomplished with a combination of 3mg of Versed and 50mcg of Fentanyl administered by the RN after DO order, titrated to patient comfort during the course of the procedure while the patient remained responsive to all verbal commands. After local infiltration using 1% lidocaine, under fluoroscopic guidance, a 10- cm RF insulated needle with a 10-mm active tip was positioned parallel to the junction of the right the superior articulating process where the L5 medial branch resides. Needle placement was confirmed with motor stimulation of .5v on the right which produced local stimulation without radicular component. The stimulation was then increased to 2v with, once again, only local multifidus stimulation without radicular component. The needle was then removed and the identical procedure was performed along the length of the right L4 medial branch with motor stimulation at .7v on the right. The identical procedure was once again performed along the length of the right L3 and medial branch with motor stimulation of .5v on the right. The medial branches were then anesthetised with 0.5% marcaine. This was then followed by two discreet lesions performed at 80 degrees Celsius for 90 seconds each. The identical procedures were repeated on the left. The patient tolerated the procedure well without signs or symptoms of complications prior to transfer to the recovery area continued monitoring without incident. The patient was then transferred to the recovery area where they were observed for an appropriate period of time after the injection. The patient reported a VAS score of 9 prior to the procedure and a post-procedure VAS of 0. POST OP INSTRUCTIONS The patient was provided a Pain Log to continue to record the patient's response to the target-specific procedure prior to the patient's follow-up visit with the referring physician. Additionally, specific post-injection care instructions and a contact number to our office were provided if concerns arise regarding possible complications associated with the procedure are suspected.
== END 2020-11-27 09:25 | disposition home or self-care (01) ==
LOC: RAD 07:26
PROVIDERS: Family Provider Student in an Organized Health Care Education/Training Program; PCP Student in an Organized Health Care Education/Training Program; Referring Provider Physical Medicine & Rehabilitation; Visit Provider Physical Medicine & Rehabilitation
DX: M47.816 Spondylosis without myelopathy or radiculopathy, lumbar region (principal)
CPT/HCPCS: 64635; 64636; 99152; 99153; J2250; J3010

== ENCOUNTER → 2021-03-19 10:58 | Outpatient (CLI) | payer BC, OTHER, SELFPAY ==
[2020-06-06 11:28] VITALS: BMI 24.9
--- NOTE | 2021-03-19 11:00 | DI.MRI.S_ITS ---
PROCEDURE: MR LUMBAR SPINE WO CON INDICATIONS: Post-traumatic low back pain with radicular symptoms TECHNIQUE: Noncontrast sagittal T1 spin echo and T2 fast echo, sagittal STIR, axial T1 and T2 fast spin echo through the lumbar spine. In cases with scoliosis, additional coronal T2 fast spin echo may be performed. COMPARISON: CR, XR LUMBAR SPINE MIN 4V, 02/28/2019, 11:30. FINDINGS: Image quality: Excellent. Alignment and Curvature: There is there is trace L4-L5 anterolisthesis. There is trace L1-L2 retrolisthesis. There is 28? of convex left thoracolumbar spine scoliosis. Bone Marrow: Modic type 1 reactive endplate changes noted adjacent to the L1-L2 disc. Modic type 2 reactive endplate changes noted adjacent to the L2-L3, L3-L4, L4-L5 and L5-S1 discs. No acute vertebral body compression fractures. Spinal Cord: Conus medullaris terminates at the L1 level. Visualized cord demonstrates normal signal and size. Paraspinous Soft Tissues: No paravertebral masses. 5.9 centimeter left renal cyst. T12-L1: Loss of disc signal and height. Mild bilateral facet hypertrophy. No central stenosis. No neural foraminal narrowing. No neural compression. L1-L2: Loss of disc signal and height. Fluid noted in the left margin of the intervertebral disc space. Mild, diffuse disc bulge. Mild bilateral facet hypertrophy. Mild narrowing of the central canal. Severe right and mild left neural foraminal narrowing with compression of the exiting right L1 nerve root. L2-L3: Loss of disc signal and height. Mild, diffuse disc bulge. Mild bilateral facet hypertrophy. Mild narrowing of the central canal. Moderate right and mild left neural foraminal narrowing. No neural compression. L3-L4: Loss of disc signal and height. Mild, diffuse disc bulge. Mild bilateral facet hypertrophy. Mild narrowing of the central canal. Moderate left neural foraminal narrowing. No neural compression. L4-L5: Loss of disc signal and height. Mild, diffuse disc bulge. Mild bilateral facet hypertrophy. Mild narrowing of the central canal. Mild right and moderate left neural foraminal narrowing. No neural compression. L5-S1: Loss of disc signal. Mild to moderate diffuse disc bulge. Mild bilateral facet hypertrophy. No central stenosis. Severe right and moderate left neural foraminal narrowing with compression of the exiting right L5 nerve root. IMPRESSION: 1. Convex left scoliosis. 2. Multilevel degenerative disc disease. 3. Multilevel facet arthropathy. Laura a 4. Fluid signal in the L1-L2 intervertebral disc space. Finding likely represents reactive change, however early manifestation of discitis cannot be excluded by imaging alone. Recommend correlation with clinical and laboratory data. 4. No severe central canal narrowing. 5. Severe right L1-L2 and L5-S1 neural foraminal narrowing with compression of the exiting right L1 and L5 nerve roots. Dictated by: Ember Sheppard MD, PhD on 03/19/2021 at 15:12 Approved by: Ember Sheppard MD, PhD on 03/19/2021 at 15:21
--- NOTE | 2021-03-19 11:00 | DI.MRI.S_ITS ---
PROCEDURE: MR CERVICAL SPINE WO CON INDICATIONS: Post-traumatic neck pain with radicular symptoms TECHNIQUE: Noncontrast sagittal T1 spin echo and T2 fast spin echo, sagittal STIR, foraminal oblique sagittal T2 fast spin echo, and axial gradient echo or T2 fast spin echo through the cervical spine. COMPARISON: [facility], MR, MR CERVICAL SPINE WITHOUT CONTRAST, 02/06/2020, 13:51. [facility], CT, CT CERVICAL SPINE WITHOUT CONTRAST, 08/30/2019, 12:07. [facility], MR, C-SPINE WITHOUT CONTRAST, 11/03/2014, 19:03. [facility], MR, MR THORACIC SPINE WO CON, 03/19/2021, 12:11. [facility], MR, MR LUMBAR SPINE WO CON, 03/19/2021, 12:28. [facility], CR, XR CERVICAL SPINE 4V OR 5V, 08/06/2020, 13:30. FINDINGS: Image quality: Excellent. Alignment and Curvature: There is grade 1/2 anterolisthesis at the C3-C4 level, with mild grade 1 retrolisthesis at C4-C5. These alignment abnormalities have worsened compared to prior imaging. Bone Marrow: Marrow demonstrates normal overall signal. Spinal Cord: Visualized spinal cord has normal size. There is a mild degree of increased T2 weighted signal seen at the superior C4 level, as on series 4, image 7. No cerebellar tonsillar herniation. Paraspinous Soft Tissues: No paravertebral masses. Prevertebral soft tissues are normal in thickness. C2-C3: The disc height is well-preserved. Loss of disc signal is seen at this level. A mild degree of generalized disc osteophyte complex is seen. Moderate facet hypertrophy is seen, left worse than right. There is moderate left-sided and mild right-sided neural foraminal narrowing. When comparison is made with the prior images, these degenerative changes are slightly progressed. C3-C4: At least moderate loss of disc height and disc signal can be seen. At least moderate disc osteophyte complex is seen. At least moderate facet hypertrophy is seen. Reactive marrow endplate changes are seen which are hypointense on T1-weighted imaging and hyperintense on T2 weighted imaging, which is most consistent with edema (Modic type I changes). There is severe bilateral neural foraminal narrowing seen. Moderate to severe central canal narrowing is seen at this level. These degenerative changes are clearly progressed compared to 2020. C4-C5: Moderate to severe loss of disc height and disc signal can be seen at this level. At least moderate disc osteophyte complex is seen. Uncovertebral joint hypertrophy is seen at this level. There is moderate to severe right-sided and at least moderate left-sided neural foraminal narrowing. Moderate central canal narrowing is seen. There is associated mass effect upon the ventral spinal cord. These imaging findings have progressed compared to the prior study. 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 No significant neural foraminal or central canal narrowing can be seen. C6-C7: At least moderate loss of disc height and disc signal can be seen. There is at least moderate disc osteophyte complex seen, with a central disc osteophyte protrusion. There is moderate to severe bilateral neural foraminal narrowing seen, left worse than right. Moderate central canal narrowing is seen. There is associated mass effect upon the ventral spinal cord. These degenerative changes are slightly worse than in 2020. C7-T1: Mild loss of disc height is seen. Loss of disc signal is seen. A mild degree of generalized disc osteophyte complex is seen. Minimal to mild bilateral neural foraminal narrowing can be seen. No significant central canal narrowing is seen. When comparison is made with the prior images, these findings are similar. T1-T2: The disc height is well-preserved. Loss of disc signal is seen at this level. There is a central disc extrusion seen, as on series 5, image 7. Mild to moderate central canal narrowing is seen. This is similar to the prior MRI. IMPRESSION: Multiple levels of cervical spine degenerative change are seen, which have worsened compared to the prior MRI dated 02/06/2020. There is now seen grade 1/2 anterolisthesis at C3-C4, with moderate to severe central canal narrowing and severe bilateral neural foraminal narrowing. 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 Spine surgery consultation is recommended. Note: Findings and recommendations relayed to Dr. Hammonds via nurse Traore at 2:06 p.m. [place] time on March 19, 2021. Dictated by: Jerardo Guerrero M.D. on 03/19/2021 at 13:43 Transcribed by: DANIEL on 03/19/2021 at 13:52 Approved by: Jerardo Guerrero M.D. on 03/19/2021 at 14:08
--- NOTE | 2021-03-19 11:00 | DI.MRI.S_ITS ---
PROCEDURE: MR THORACIC SPINE WO CON INDICATIONS: Post-traumatic neck pain with radicular symptoms TECHNIQUE: Noncontrast sagittal T1 spine echo and T2 fast spin echo, sagittal STIR, axial T1 and T2 fast spin echo through the thoracic spine. COMPARISON: [facility], CT, CT ANGIO CHEST PE, 03/02/2018, 21:50. [facility], MR, MR LUMBAR SPINE WO CON, 03/19/2021, 12:28. [facility], MR, MR CERVICAL SPINE WO CON, 03/19/2021, 11:56. FINDINGS: Image quality: This examination is limited by involuntary motion artifact. Alignment and Curvature: S-shaped scoliotic curvature is seen. Bone Marrow: Marrow is of normal overall signal. No acute vertebral body compression fractures. Spinal Cord: Visualized spinal cord is normal in size and signal. Mild prominence of the central cord can be seen from T7-T8, which has a benign, incidental appearance. Paraspinous Soft Tissues: No paravertebral masses. There is partial visualization of renal cysts, left larger than right. Miscellaneous: At the T1-T2 level, there is mild loss of disc height seen. There is a central disc protrusion seen, with mild to moderate central canal narrowing and mild mass effect upon the ventral spinal cord, as on series 8, image 6. At the T5-T6 level, there is a central/left disc osteophyte protrusion seen, as on series 8, image 16 and on series 4, image 7, with mild to moderate central canal narrowing and moderate mass effect upon the ventral spinal cord. No significant neural foraminal narrowing can be seen. At the T6-T7 level, there is a mild central/right disc osteophyte protrusion, as on series 8 image 19, with minimal central canal narrowing. No significant neural foraminal narrowing can be seen. At the T10-T11 level, there is moderate loss of disc height and disc signal seen. Reactive marrow endplate changes are seen, which demonstrate mixed T1 weighted and T2-weighted signal, and are attributed to a combination of edema and fatty metaplasia (Modic type I and Modic type II changes). Moderate generalized disc bulge is seen. There is a central disc protrusion seen, with mild central canal narrowing. At least moderate bilateral neural foraminal narrowing can be seen. At T11-T12, there is moderate loss of disc height and disc signal. Mild disc bulge is seen, with a mild central disc protrusion. Mild bilateral neural foraminal narrowing is seen. At T12-L1, there is moderate to severe loss of disc height seen, with a degree of bony fusion seen anteriorly and on the right. There is a disc protrusion seen. There is mild right-sided and no significant left-sided neural foraminal narrowing. No significant central canal narrowing is seen. Lumbar spine degenerative change is partially seen. Milder degenerative changes are seen elsewhere. IMPRESSION: Multiple levels of thoracic spine degenerative change are seen, which are overall worst at T5-T6. S shaped scoliosis can be seen. Dictated by: Jerardo Guerrero M.D. on 03/19/2021 at 13:52 Approved by: Jerardo Guerrero M.D. on 03/19/2021 at 13:58
== END ==
PROVIDERS: Family Provider Student in an Organized Health Care Education/Training Program; PCP Student in an Organized Health Care Education/Training Program; Referring Provider Student in an Organized Health Care Education/Training Program; Visit Provider Student in an Organized Health Care Education/Training Program
DX: M48.02 Spinal stenosis, cervical region (principal); M48.061 Spinal stenosis, lumbar region without neurogenic claudication; M48.07 Spinal stenosis, lumbosacral region; M54.81 Occipital neuralgia; M47.812 Spondylosis without myelopathy or radiculopathy, cervical region; M43.12 Spondylolisthesis, cervical region; M47.814 Spondylosis without myelopathy or radiculopathy, thoracic region; M51.17 Intervertebral disc disorders with radiculopathy, lumbosacral region; M51.16 Intervertebral disc disorders with radiculopathy, lumbar region; S39.92XA Unspecified injury of lower back, initial encounter; M47.816 Spondylosis without myelopathy or radiculopathy, lumbar region; M47.817 Spondylosis without myelopathy or radiculopathy, lumbosacral region; R20.2 Paresthesia of skin; R29.890 Loss of height; M41.86 Other forms of scoliosis, lumbar region; Z98.890 Other specified postprocedural states
CPT/HCPCS: 72141; 72146; 72148

== ENCOUNTER → 2022-09-04 14:54 | Outpatient (CLI) | payer OTHER, SELFPAY ==
[2020-06-06 11:28] VITALS: BMI 24.9
[2022-09-04 16:40] LABS: Add Manual Diff / Slide Review NO; Basophils Absolute Auto 100 /uL (0-100); Basophils Percent Auto 1.2 % (0-2); Eosinophils Absolute Auto 100 /uL (0-450); Eosinophils Percent Auto 1.6 % (2-4); Hematocrit 32.5 % (36-46); Hemoglobin 10.2 g/dL (12.0-16.0); Lymphocytes Absolute Auto 1600 /uL (1100-4500); Lymphocytes Percent Auto 33.3 % (25-40); Mean Corpuscular HGB Conc 31.3 % (30-36); Mean Corpuscular Hemoglobin 22.6 PG (26-34); Mean Corpuscular Volume 72.1 fL (80-100); Monocytes Absolute Auto 500 /uL (0-900); Monocytes Percent Auto 10.3 % (3-14); Neutrophils Absolute Auto 2600 /uL (1500-7000); Neutrophils Percent Auto 53.6 % (50-75); Platelet Count 355 X10^3/uL (150-400); Red Cell Distribution Width 16.3 % (11.6-14.8); White Blood Cell Count 4.8 X10^3/uL (4.5-11.0)
[2022-09-04 17:10] LABS: Erythrocyte Sedimentation Rate 16 MM/HR (0-20)
[2022-09-04 17:18] LABS: Alanine Aminotransferase 46 IU/L (<35); Albumin 4.2 g/dL (3.5-5.0); Albumin Globulin Ratio 1.5 (1.0-2.8); Alkaline Phosphatase 69 U/L (38-126); Aspartate Aminotransferase 51 IU/L (14-36); BUN Creatinine Ratio 15.5 (6-22); Bilirubin Total 0.3 mg/dL (0.2-1.3); Blood Urea Nitrogen 15 mg/dL (7-17); C-Reactive Protein Quant < 0.5 mg/dL (<1.0); Calcium 9.2 mg/dL (8.4-10.2); Carbon Dioxide 27 mmol/L (22-32); Chloride 107 mmol/L (98-107); Creatine Kinase 79 U/L (30-135); Estimated Glomerular Filt Rate > 60 mL/min (>60); Globulin 2.8 g/dL (1.7-4.1); Glucose 67 mg/dL (80-110); HEMOLYSIS < 15 (0-50); Potassium 4.3 mmol/L (3.4-5.1); Sodium 140 mmol/L (137-145)
[2022-09-04 17:27] LABS: Rheumatoid Factor < 8.6 IU/mL (<12.0)
[2022-09-08 17:36] LABS: ANA Screen, IFA Negative (.)
== END ==
PROVIDERS: Family Provider Student in an Organized Health Care Education/Training Program; PCP Pediatrics; Referring Provider Pediatrics; Visit Provider Pediatrics
DX: F43.22 Adjustment disorder with anxiety (principal); M19.011 Primary osteoarthritis, right shoulder; M54.16 Radiculopathy, lumbar region; M48.04 Spinal stenosis, thoracic region; M54.12 Radiculopathy, cervical region; M48.02 Spinal stenosis, cervical region; F11.20 Opioid dependence, uncomplicated; M79.10 Myalgia, unspecified site; T36.95XA Adverse effect of unspecified systemic antibiotic, initial encounter; M21.949 Unspecified acquired deformity of hand, unspecified hand
CPT/HCPCS: 36415; 80053; 82550; 85025; 85651; 86038; 86140; 86430

== ENCOUNTER → 2022-09-12 11:35 | Outpatient (CLI) | payer OTHER, SELFPAY ==
[2020-06-06 11:28] VITALS: BMI 24.9
--- NOTE | 2022-09-12 11:38 | DI.RAD.S_ITS ---
PROCEDURE: XR DEXA APPENDICULAR SKELETON INDICATIONS: asymptomatic age related postmenopausal state COMPARISON: [facility], CR, XR DEXA AXIAL SKELETON, 04/29/2018, 15:47. [facility], CR, DEXA AXIAL SKELETON, 02/08/2016, 15:18. FINDINGS: This blank DEXA report has been sent in error by the PACS system. The correct and complete report will be forthcoming in 1-2 days. Thank you for your patience and understanding. Dictated by: Reagan Miranda M.D. on 09/15/2022 at 8:52 Approved by: Reagan Miranda M.D. on 09/15/2022 at 8:53
--- NOTE | 2022-09-12 12:04 | DI.DEXA.S_ITS ---
Bone Density Report Name: TRINI GARCIA Age: 72 Sex: Female Ethnicity: White Date of : 1950 Indication: postmenopausal; screening for osteoporosis; Referring Provider: SANDEEP CUELLAR Study: Bone densitometry was performed. Exam Date: September 12, 2022 Accession number: [id number] Bone Density: Region BMD T-score Z-score Classification Total Forearm (Left) 0.497 -1.5 0.5 Osteopenia 1/3 Forearm (Left) 0.649 -0.7 1.3 Normal UD Forearm (Left) 0.364 -1.4 0.1 Osteopenia World Health Organization criteria for BMD impression classify patients as: Normal (T-score at or above -1.0), Osteopenia (T-score between -1.0 and -2.5), or Osteoporosis (T-score at or below -2.5). Impression: The patient has normal bone mass. Discussion: BONE DENSITY IS ABOVE THE MINIMUM DESIRABLE LEVEL AT ALL SKELETAL SITES TESTED. This patient?s bone mineral density is above the minimum desirable level (T-score -1.0 or better) at all sites measured. The patient should follow a healthful lifestyle (good nutrition with adequate calcium and vitamin D, and appropriate weight-bearing exercise). Follow-Up: Consider repeating this study in 5 years or sooner if there is some new clinical indication. Reported by: TAMERA SAN M.D. on 09/12/2022 3:50:00 PM.
== END ==
PROVIDERS: Family Provider Student in an Organized Health Care Education/Training Program; PCP Pediatrics; Referring Provider Pediatrics; Visit Provider Pediatrics
DX: Z13.820 Encounter for screening for osteoporosis (principal); Z78.0 Asymptomatic menopausal state; M79.10 Myalgia, unspecified site; T36.95XA Adverse effect of unspecified systemic antibiotic, initial encounter; M21.949 Unspecified acquired deformity of hand, unspecified hand; M19.011 Primary osteoarthritis, right shoulder; M54.16 Radiculopathy, lumbar region; M48.04 Spinal stenosis, thoracic region; M48.02 Spinal stenosis, cervical region; F43.22 Adjustment disorder with anxiety
CPT/HCPCS: 77081; 77086

== ENCOUNTER 2022-12-23 13:14 | Day surgery (SDC) | payer OTHER, SELFPAY ==
[2020-06-06 11:28] VITALS: BMI 24.9
[2022-12-23 14:06] VITALS: BMI 26.5
[2022-12-23 14:34] VITALS: BP 151/98; PULSE 94; RESP 18; TEMP 37.2; O2SAT 97
[2022-12-23] MEDS: LACTATED RINGERS 1,000 ML 42 ML IV (14:38)
--- NOTE | 2022-12-23 14:43 | P.HP_ITS ---
History of Present Illness History of Present Illness Date Patient Seen: 12/23/22 Time Patient Seen: 14:43 Chief complaint: Screening Colonoscopy Narrative: 72-year-old woman here for screening colonoscopy last colonoscopy 10 years ago. No family history of intestinal malignancy. Currently no abdominal pain unintentional weight loss blood per rectum. [facility] Medical History Acquired hand deformity Antibiotic-induced myalgia Esophageal diverticulum, acquired Radiculopathy of lumbar region Spinal stenosis of thoracic region Radiculopathy of cervical region Post concussion syndrome Facet arthropathy, cervical Cervical stenosis of spinal canal Bilateral occipital neuralgia Herpes Concussion (08/28/19) Occipital neuralgia of right side Herpes simplex type 2 infection Morbid obesity (07/04/10) Left shoulder pain Hypoglycemia Hip pain Facet arthropathy, lumbar Scoliosis (and kyphoscoliosis), idiopathic Hypertension (Unknown) Hyperlipemia (Unknown) Restless leg syndrome (Unknown) Osteopenia (~01/2016) DDD (degenerative disc disease), cervical (Unknown) History of bariatric surgery (05/23/11) Degeneration of intervertebral disc of cervical region (07/04/10) Generalized osteoarthritis of multiple sites (07/04/10) Hypothyroidism (07/04/10) Sleep apnea Depression Surgical History S/P excision of ganglion cyst History of total left hip arthroplasty (04/20/19) Hx of thumb surgery S/P epidural steroid injection S/P epidural steroid injection History of ankle surgery History of arthroplasty of left shoulder History of arthroplasty of right shoulder History of lumbar laminectomy Hx of cholecystectomy (Unknown) Hx of total knee arthroplasty (03/2015) Hx of lumbar discectomy (11/2015) S/P total hip arthroplasty (01/2017) Hx of bariatric surgery (2010) Status post total hip replacement, right Family History Father Congestive heart failure Heart disease Mother Hypertension Heart disease Grandfather Stroke Social History household members: significant other and other occupational status: employed Smoking Status: Never smoker second hand exposure: No alcohol intake: current substance use type: does not use Meds Home Medications and Allergies Home Medications Medication Instructions Recorded Confirmed Type cholecalciferol (vitamin D3) 25 1,000 unit PO DAILY 09/15/18 12/23/22 History mcg (1,000 unit) capsule urea 40 % topical cream 1 applictn topical BID PRN skin 05/13/19 12/23/22 Rx irritation #85 grams estradiol 0.01% (0.1 mg/gram) See Rx Instructions vaginal 09/13/19 12/23/22 Rx vaginal cream BEDTIME #42.5 grams Lancet: Device #100 ea 11/10/19 11/21/22 Rx glucose meter #1 ea 11/10/19 11/21/22 Rx diclofenac sodium 3 % topical gel 1 applictn topical BID PRN Pain in 02/28/20 12/23/22 History hands valacyclovir 1 gram tablet 1,000 mg PO DAILY PRN Herpes 02/28/20 12/23/22 History breakout sumatriptan succinate 100 mg See Rx Instructions PO .COMPLEX 07/12/20 12/23/22 History tablet (Imitrex) valacyclovir 500 mg tablet 500 mg PO DAILY #90 tabs 10/05/20 12/23/22 Rx Glucose: Test Strips #100 ea 01/21/21 11/21/22 Rx polysaccharide iron complex 150 mg 150 mg PO BEDTIME #90 caps 03/27/21 12/23/22 Rx iron capsule (iFerex 150) trazodone 50 mg tablet 50 mg PO BEDTIME #90 tabs 01/29/22 12/23/22 Rx methotrexate sodium 2.5 mg tablet 7.5 mg (3 x 2.5 mg) PO QWEEK 09/04/22 12/23/22 Rx arthritis #30 tabs celecoxib 200 mg capsule (Celebrex) 200 mg PO DAILY #90 caps 11/21/22 12/23/22 Rx duloxetine 60 mg capsule,delayed 60 mg PO DAILY #90 caps 11/21/22 12/23/22 Rx release tizanidine 4 mg tablet 4 mg PO BEDTIME PRN muscle spasm 11/21/22 12/23/22 Rx #90 tabs acetaminophen 300 mg-codeine 15 mg 1 tab PO BID PRN severe pain #60 12/02/22 12/23/22 Rx tablet tabs pramipexole 0.5 mg tablet 0.5 mg PO QPM 12/23/22 12/23/22 History tramadol 50 mg tablet 100 mg PO 3XD PRN pain 12/23/22 12/23/22 History Allergies Allergy/AdvReac Type Severity Reaction Status Date / Time oxycodone [OXYCODONE] Allergy Mild ITCHING, Verified 12/23/22 13:56 TAKES BENADRYL WITH IT methocarbamol AdvReac Intermediate Mental Verified 12/23/22 13:56 status changes, memory loss adhesive [ADHESIVE] AdvReac Mild (PAPER/SILK Verified 12/23/22 13:56 TAPE OK) RASH hydrocodone [HYDROCODONE] AdvReac Mild NAUSEA Verified 12/23/22 13:56 Exam Vital Signs (past 8 hours): - 12/23/22 14:34 Temperature 99 F Pulse Rate 94 H Respiratory Rate 18 Blood Pressure 151/98 H Pulse Oximetry 97 Oxygen Delivery Method Room Air Oxygen Delivery Method Room Air Narrative Exam Narrative: General adult woman alert oriented no acute distress Chest nonlabored respiration Extremities warm well perfused Assessment & Plan Assessment & Plan narrative: The patient requires colorectal screening and colonoscopy is recommended. Technical details were discussed. Risks, benefits, alternatives explained. Risks including but not limited to myocardial infarction, aspiration, bleeding, pain, missed lesion, incomplete examination, need for further radiographic studies, colonic perforation, and need for major abdominal surgery were discussed. All questions were answered to their satisfaction, and they are in agreement with this plan.
[2022-12-23 15:10] VITALS: BP 110/66; PULSE 82; RESP 14; TEMP 36.6; O2SAT 94
[2022-12-23 15:15] VITALS: BP 103/63; PULSE 72; RESP 14; O2SAT 96
--- NOTE | 2022-12-23 15:16 | P.OP.COLON_ITS ---
Operative Date/Time/Diagnoses Date of procedure: 12/23/22 Time of procedure: 15:16 Pre-op diagnosis: Colorectal screening Procedure & Clinicians Study performed: Colonoscopy Same procedure as scheduled: Yes Indications: Colorectal screening Surgeon: Gabriel Fuentes Procedure Notes Procedure in detail: The history and physical was performed/updated and the patient is ASA class is 2. The procedure was discussed in detail with the patient. Potential risks complications including infection, bleeding, missed diagnosis, perforation, need for surgery, and were explained. Their questions were answered and informed consent was obtained. Patient was brought to the procedure room and placed standard monitoring equipment. The patient's vital signs were monitored continuously throughout the entire procedure. Prior to starting time-out was performed. The patient was placed in the left lateral recumbent position. Procedural sedation was administered by anesthesia. Examination began with a thorough inspection of the perianal area there was no evidence of fissures, fistulae, external hemorrhoids or cutaneous malignancy. The colonoscopy scope was then placed into the anal canal and was advanced to the cecum, which was identified by the ileocecal valve , the appendiceal orifice and the confluence of the taenia. The scope was then slowly withdrawn examining colon thoroughly in all directions, irrigating it of any residual stool. The scope was retroflexed within the rectum The patient tolerated the procedure well. They will be discharged once criteria are met. The prep was of poor quality. The withdrawl time was 7 minutes. FINDINGS * Unremarkable colonoscopy. No masses or polyps. * Grade 1 internal hemorrhoids. Specimen(s): none sent Impression: Normal colonoscopy Post-procedure Plan for aftercare: No further colonoscopy necessary unless symptomatic Disposition: same day surgery
[2022-12-23 15:25] VITALS: BP 126/80; PULSE 82; RESP 15; TEMP 36.4; O2SAT 96
== END 2022-12-23 15:40 | disposition home or self-care (01) ==
PROVIDERS: Family Provider Student in an Organized Health Care Education/Training Program; PCP Family Medicine; Referring Provider Surgery; Visit Provider Surgery
PROC: 0DJD8ZZ Inspection of Lower Intestinal Tract, Via Natural or Artificial Opening Endoscopic (ICD-10-PCS; CPT 45378; principal; 2022-12-23 14:45)
DX: Z12.11 Encounter for screening for malignant neoplasm of colon (principal); K64.0 First degree hemorrhoids
CPT/HCPCS: 45378; J2704

== ENCOUNTER 2023-06-11 09:02 | Outpatient (CLI) | payer OTHER, SELFPAY ==
[2023-01-07 10:10] VITALS: BMI 24.9
[2023-06-11] VITALS (8 sets, daily range): BP systolic 132–157; BP diastolic 67–84; PULSE 65–91; RESP 12–20; TEMP 36.9; O2SAT 97–100
--- NOTE | 2023-06-11 09:45 | DI.RAD.S_ITS ---
PROCEDURE: PAIN L/S FACET INJ/BLK 1ST POLO INDICATIONS: FACET ARTHROPATHY COMPARISON: [facility], , PAIN L/S FACET INJ/BLK 1ST POLO, 10/06/2019, 13:49. FINDINGS: Fluoroscopic spot filming was performed to verify placement of spinal needles at the bilateral L3, L4, and L5 levels, as labeled on the films. Appropriate locations of the needle tips were confirmed by injection of iodinated contrast. IMPRESSION: Intraprocedural examination demonstrates appropriate needle positioning. Approved by: Og De Jesus M.D. on 06/11/2023 at 15:33
[2023-06-11] MEDS: MIDAZOLAM 2 MG/2 ML VIAL IV (10:25)
[2023-06-11] MEDS: LIDOCAINE 2% INJ MDV 20ML 5 ML INJ (10:31)
[2023-06-11] MEDS: LIDOCAINE 1% 20 ML 5 ML INJ (10:31)
[2023-06-11] MEDS: iopamidoL 15 ML VIAL 3 ML INJ (10:32)
--- NOTE | 2023-06-11 10:52 | PM.PROC.IR.1 ---
Date/Time/Diagnoses Date of procedure: 06/11/23 Time of procedure: 10:52 Pre-procedure diagnosis: 1. FACET ARTHROPATHY Post-procedure diagnosis: same Procedure Notes Procedure: 1. BILATERAL L3, L4 AND L5 DIAGNOSTIC MB BLOCKS Indications: Elizabeth is referred by Dr. Frausto for treatment of Bilateral Axial LBP. Physician: Sunday Strauss Total Fluoroscopy time (seconds): 10 Total sedation minutes: 20 Complications: none Procedure in detail & Post-procedure care: DESCRIPTION OF PROCEDURE Fluoroscopically guided, contrast-controlled bilateral L3, L4 AND L5 medial branch blocks with 0.5cc of 2% Lidocaine. Following review of allergy and review of potential side effects and complications, including, but not necessarily limited to, infection, allergic reaction, local tissue breakdown, nerve injury, paralysis, stroke and possible , the patient indicated that the patient understood and agreed to proceed. An informed consent document was signed by the patient, witnessed by a nurse, and placed in the patient's chart. After review of previous anaesthesic history and IV conscious sedation the patient was deemed safe to proceed with today's procedure with IV conscious sedation as ASA class II designation. Safety time-out was performed to confirm patient ID, procedure to be performed and site of procedure. IV sedation was accomplished with a combination of 2mg of Versed was administered by the RN after DO order, titrated to patient comfort during the course of the procedure while the patient remained responsive to all verbal commands In the prone position, following sterile prep and drape of the lumbar region, the right L3, L4 AND L5 anatomical location of the medial branch of the dorsal ramus was identified fluoroscopically. Subsequently an anesthetic skin wheal using 1% lidocaine solution was initiated at each of the anatomical spots. Subsequently then a 22-gauge 3.5-inch spinal needle was atraumatically introduced and advanced under fluoroscopic guidance at each of the corresponding sites at the right L3, L4 and L5 MB. After negative aspiration, 0.2cc of Isovue 200 was injected, confirming placement without vascular or intrathecal uptake. Subsequently then 0.5cc of 2% Lidocaine solution was injected at each of the corresponding sites at the right L3, L4 and L5 medial branch locations. The identical procedure was replicated on the left. The patient tolerated the procedure well without signs or symptoms of complications. The patient tolerated the procedure well without signs or symptoms of complications prior to transfer to the recovery area continued monitoring without incident. Post-procedure, the patient was monitored initiating provocative activities to measure the amount of relief from block of the facetogenic pain. The patient reported a VAS of 7 prior to the procedure and a post-procedure VAS of 1. It has been a pleasure to assist in the diagnostic and therapeutic care of your patient. POST OP INSTRUCTIONS The patient was provided with a Pain Log to complete over the next several hours and subsequent days prior to the patient's follow up with the ordering physician. If the patient has internal revenue service agent relief to the solution applied, then they may be a candidate for medial branch rhizotomy. The patient is aware, was provided, once again, with a Pain Log and will follow up with the referring physician for review and clinical correlation
--- NOTE | 2023-06-11 11:34 | PC.NURSE ---
Patient was awake upon arrival to post-op, but she complained of feeling dizzy on transfer. Patient kept in the recovery area until her dizziness was relieved. She stated that she was ready to go at 1118 and She was reassessed and she was able to transfer on her own from the recliner to the wheelchair without any dizziness. She was discharged at 1121.
== END 2023-06-11 11:21 | disposition home or self-care (01) ==
LOC: RAD 09:03
PROVIDERS: PCP Family Medicine; Referring Provider Physical Medicine & Rehabilitation; Visit Provider Physical Medicine & Rehabilitation
DX: M47.816 Spondylosis without myelopathy or radiculopathy, lumbar region (principal)
CPT/HCPCS: 64493; 64494; 99152; J2250

== ENCOUNTER 2023-07-23 10:14 | Outpatient (CLI) | payer OTHER, SELFPAY ==
[2023-01-07 10:10] VITALS: BMI 24.9
[2023-07-23] VITALS (14 sets, daily range): BP systolic 119–171; BP diastolic 71–93; PULSE 71–95; RESP 12–26; TEMP 36.2; O2SAT 96–100
--- NOTE | 2023-07-23 11:15 | DI.RAD.S_ITS ---
PROCEDURE: PAIN L/S MED/LAT N RFA BILAT INDICATIONS: Bilateral L3-4 and 5 medial branch RFA COMPARISON: [facility], MR, MR LUMBAR SPINE WITHOUT CONTRAST, 10/22/2022, 15:47. [facility], CT, CT LUMBAR SPINE WITHOUT CONTRAST, 07/14/2023, 10:58. FINDINGS: Fluoroscopic spot filming was performed to verify placement of spinal needles at the left L3, L4 and L5 level(s), as labeled on the films. Appropriate location(s) of the needle tip(s) was confirmed by injection of iodinated contrast. IMPRESSION: Fluoroscopy for pain management. Dictated by: Holden Larry M.D. on 07/28/2023 at 8:28 Approved by: Holden Larry M.D. on 07/28/2023 at 8:29
--- NOTE | 2023-07-23 11:51 | PC.NURSE ---
Patient unsteady on feet at baseline. She states both my legs are wobbly and feel like they are giving out when walking. Dr alegria aware.
[2023-07-23] MEDS: MIDAZOLAM 2 MG/2 ML VIAL IV (12:01)
[2023-07-23] MEDS: LIDOCAINE 1% 20 ML 5 ML INJ (12:07)
[2023-07-23] MEDS: BUPIVACAINE 0.5% (PF) 10 ML VIAL 5 ML INJ (12:09)
[2023-07-23] MEDS: fentaNYL 100 MCG/2 ML INJ 50 MCG IV (12:18)
--- NOTE | 2023-07-23 12:47 | P.PCN_ITS ---
Date/Time/Diagnoses Date of procedure: 07/23/23 Time of procedure: 12:47 Pre-procedure diagnosis: 1. RECALCITRANT FACET ARTHROPATHY Post-procedure diagnosis: same Procedure Notes Procedure: 1. BILATERAL L3, L4 AND L5 MEDIAL BRANCH RADIOFREQUENCY NEUROTOMY Indications: Elizabeth is referred by Dr. Frausto for treatment of facet arthropathy. Physician: Sunday Strauss Total Fluoroscopy time (seconds): 17 Total sedation minutes: 37 Complications: none Procedure in detail & Post-procedure care: DESCRIPTION OF PROCEDURE Bilateral L3, L4 and L5 medial branch radiofrequency neurotomy The patient is well known to this clinic having undergone previous facet injections with good but temporary relief. The patient has experienced appropriate, concordant relief with previous facet and median branch blocks but the patient's pain has been recalcitrant to further conservative measures. Therefore, based upon the patient's relief and persistent symptoms, the patient is considered an appropriate candidate for facet rhizotomy. All of the patient's questions regarding the risks versus benefits of the procedure, including, but not limited to, bleeding, infection, temporary as well as lasting nerve injury, paralysis, stroke, and , as well treatment alternatives were answered to satisfaction. After obtaining informed consent, denial of pertinent drug allergies, as well as being made aware of the potential risks of bleeding, infection, spinal cord trauma, paralysis, temporary and permanent nerve damage, seizure, stroke, and possible , the patient was brought to the fluoroscopy suite and positioned prone on the fluoroscopy table. After review of previous anaesthesic history and IV conscious sedation the patient was deemed safe to proceed with today's procedure with IV conscious sedation as ASA class II designation. Safety time-out was performed to confirm patient ID, procedure to be performed and site of procedure. IV sedation was accomplished with a combination of 2mg of Versed and 50mcg of Fentanyl administered by the RN after DO order, titrated to patient comfort during the course of the procedure while the patient remained responsive to all verbal commands. The lumbar region was prepped in usual sterile fashion and covered with a fenestrated drape in the usual sterile fashion. Appropriate monitors applied including pulse oximeter, pulse, and blood pressure for regular monitoring throughout the procedure. After local infiltration using 1% lidocaine, under fluoroscopic guidance, a 10- cm RF insulated needle with a 10-mm active tip was positioned parallel to the junction of the right the superior articulating process where the L5 medial branch resides. Needle placement was confirmed with motor stimulation of .5v on the right which produced local stimulation without radicular component. The stimulation was then increased to 2v with, once again, only local multifidus stimulation without radicular component. The needle was then removed and the identical procedure was performed along the length of the right L4 medial branch with motor stimulation at .7v on the right. The identical procedure was once again performed along the length of the right L3 and medial branch with motor stimulation of .5v on the right. The medial branches were then anesthetised with 0.5% marcaine. This was then followed by two discreet lesions performed at 80 degrees Celsius for 90 seconds each. The identical procedures were repeated on the left. The patient tolerated the procedure well without signs or symptoms of complications prior to transfer to the recovery area continued monitoring without incident. The patient was then transferred to the recovery area where they were observed for an appropriate period of time after the injection. The patient reported a VAS score of 9 prior to the procedure and a post-procedure VAS of 2. POST OP INSTRUCTIONS The patient was provided a Pain Log to continue to record the patient's response to the target-specific procedure prior to the patient's follow-up visit with the referring physician. Additionally, specific post-injection care instructions and a contact number to our office were provided if concerns arise regarding possible complications associated with the procedure are suspected.
== END 2023-07-23 11:04 | disposition home or self-care (01) ==
PROVIDERS: PCP Family Medicine; Referring Provider Physical Medicine & Rehabilitation; Visit Provider Physical Medicine & Rehabilitation
DX: M47.816 Spondylosis without myelopathy or radiculopathy, lumbar region (principal)
CPT/HCPCS: 64635; 64636; 99152; 99153; J2250; J3010